=== PATIENT | male | born 1940 | race Caucasian/White ===

== ENCOUNTER 2022-02-03 09:53 | Outpatient (CLI) | payer MEDICARE, SELFPAY ==
[2022-02-03 10:22] LABS: Basophils Absolute Auto 0.1 K/mm3 (0.0-0.1); Basophils Percent Auto 0.6 % (0.2-1.2); Eosinophils Absolute Auto 0.3 K/mm3 (0-0.3); Eosinophils Percent Auto 2.6 % (0-4.4); Hematocrit 40.7 % (42.0-52.0); Hemoglobin 13.4 g/dL (14.0-18.0); Immature Granulocyte Absolute 0.03 K/mm3 (0.00-0.031); Immature Granulocyte Percent A 0.3 % (0-0.5); Lymphocytes Absolute Auto 1.42 K/mm3 (0.9-3.2); Lymphocytes Percent Auto 14.3 % (18.3-44.2); Mean Corpuscular HGB Conc 32.9 g/dl (32-36); Mean Corpuscular Hemoglobin 29.5 pg (26-34); Mean Corpuscular Volume 89.5 fl (80-100); Mean Platelet Volume 9.7 fl (7.4-10.4); Monocytes Absolute Auto 0.7 K/mm3 (0.1-0.6); Monocytes Percent Auto 7.3 % (2.6-8.5); Neutrophils Absolute Auto 7.5 K/mm3 (1.3-6.7); Neutrophils Percent Auto 74.9 % (45.5-73.1); Platelet Count Result 259 k/mm3 (150-375); Red Blood Count 4.55 M/mm3 (4.6-6.20); Red Cell Distribution Width 13.2 % (11.5-14.5)
[2022-02-03 10:32] LABS: INR 1.1; Prothrombin Time 13.6 Seconds (11.1-14.7)
[2022-02-03 10:33] LABS: Partial Thromboplastin Time 30.3 SECONDS (22.3-36.8)
[2022-02-03 10:38] LABS: Anion Gap 12 mmol/L (8-16); Blood Urea Nitrogen 20 mg/dL (9-20); Calcium 9.4 mg/dL (8.4-10.2); Carbon Dioxide 30 mmol/L (22-30); Chloride 99 mmol/L (98-107); Estimated Glomerular Filt Rate 49; Glucose 129 mg/dL (65-110); Potassium 4.8 mmol/L (3.4-5.0); Sodium 141 mmol/L (137-145)
== END 2022-02-03 09:54 | disposition home or self-care (01) ==
LOC: ANHSURGERY 10:00
PROVIDERS: Anesthesiology; Visit Provider Surgery
DX: Z01.818 Encounter for other preprocedural examination (principal); E11.9 Type 2 diabetes mellitus without complications; C25.9 Malignant neoplasm of pancreas, unspecified
CPT/HCPCS: 36415; 80048; 85025; 85610; 85730

== ENCOUNTER 2022-02-08 01:23 | Day surgery (SDC) | payer MEDICARE, SELFPAY ==
[2022-02-02 15:30] VITALS: BMI 29.5
--- NOTE | 2022-02-02 15:41 | PC.NURSE ---
PRE-OP INSTRUCTIONS, PLEASE READ CAREFULLY Report to the Outpatient Waiting Room, entrance under the green pavilion located off [facility], at time _1200_ on date _02/08/22_. Planned Procedure Time: _2 PM_. Time changes happen often and if your time is changed the preop area will call you the afternoon before. - You and your visitor will be asked to self-screen and do not enter if you have any COVID symptoms. - Only one visitor is requested with a max of two and NO children visitors are allowed at this time. - The patient visitor may be requested to leave or wait in car when not with patient due to distancing restrictions. - A mask is optional within the hospital. Patients may have clear liquids (water, carbonated beverages, clear teas, apple juice) until 3 hours prior to surgery (1100 AM) with a maximum of 20 ounces. - No food from midnight until time of surgery Take the following medications with a SIP of water the morning of surgery: _NONE_ Medications to discontinue per ANESTHESIA - _MULTIVITAMIN 3 DAYS PRIOR TO SURGERY, Date to take last dose 02/04/22_ Please no make-up, nail amharic, hairspray, perfume, deodorant, or body powder the day of surgery. No jewelry (including any body piercings) or valuables the day of surgery, leave them at home. Please take a shower or bath the night before, or the morning of, surgery with an antibacterial soap. Wear comfortable, loose fitting clothing. Children are encouraged to wear pajamas. - Jewelry must be removed prior to entering the operating room. Rings and piercings that are not removed may be cut off. - The hospital will not accept responsibility for valuables. - Please leave all valuables, including medications, at home the day of surgery. If you are going home after surgery, a licensed new car driver must drive you home. - NO public transportation without another adult if you receive anesthesia. - We recommend that an adult stay with you for 24 hours following discharge. - We also recommend that you do not drive, make important decision, drink alcoholic beverages, or take any drugs that were not prescribed by your health care provider for at least 24 hours after your discharge time. Follow any additional instructions given to you from your surgeon. If you or anyone in your household have experienced Covid symptoms in the past week, please notify your surgeon or the nurse liaison at the phone number below for possible testing. Telephone instructions given to _[facility] [place]_and asked if any additional questions and then verbalized understanding. Patient advised to call surgeon office or pre surgery nurse liaison [phone] if any additional questions.
--- NOTE | 2022-02-07 09:38 | PM.SD2 ---
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 He also had a bile duct stricture and has had bile duct stenting. He plans to have chemotherapy and is taken to surgery now for placement of a Port-A-Cath for chemotherapy access. FORMERLY [facility] Past Medical History Medical History (Updated 02/08/22 @ 14:39 by Ovi Andre MD) AAA (abdominal aortic aneurysm) BPH (benign prostatic hyperplasia) CKD (chronic kidney disease) stage 3, GFR 30-59 ml/min Diabetes HTN (hypertension) Hyperlipidemia Obesity Osteoarthritis Pancreatic cancer Social History Social History Smoking packs per day: 1 Smoking cigarettes per day: 20.0 Years smoked: 35 Smoking pack-years: 35.00 Smoking status: Former smoker Tobacco type: cigarettes Second hand tobacco smoke exposure: No Additional smoking assessment comments: QUIT 2007 Alcohol intake: never Substance use: never Living arrangements: with family Spiritual care concerns: No Same Day Admit/Disch: Med Pre-admit Medications Home Medications Medication Instructions Recorded Confirmed Type amlodipine 5 mg tablet 5 mg HS 02/02/22 02/08/22 History aspirin 81 mg tablet,delayed 81 mg PO DAILY 02/02/22 02/08/22 History release atorvastatin 20 mg tablet 20 mg QAM 02/02/22 02/08/22 History losartan 50 mg tablet 50 mg HS 02/02/22 02/08/22 History metformin 500 mg tablet 500 mg HS 02/02/22 02/08/22 History multivitamin 1 tablet PO DAILY 02/02/22 02/08/22 History ondansetron HCl 4 mg tablet 4 mg PO Q6H PRN Nausea 02/02/22 02/08/22 History hydrocodone 5 mg-acetaminophen 325 1 - 2 tablet PO Q6H PRN pain #10 02/08/22 Rx mg tablet tabs ibuprofen 600 mg tablet 600 mg PO Q6H PRN pain #14 tabs 02/08/22 Rx Exam Const: General: comfortable, no acute distress, alert and awake HENMT: Head: normocephalic and atraumatic Mouth: Yes Normal oral and palatal mucosa present Eyes: Conjunctivae: conjunctivae normal Pupils: Equal, round and reactive pupils present EOM: EOMs intact bilaterally Neck: Neck: normal visual inspection, no lymphadenopathy and nontender Chest: Chest palpation & inspection: normal inspection of the chest, no tenderness and No rash Resp: Effort & Inspection: normal respiratory effort Auscultation: clear to auscultation bilaterally Cardio: Rate: regular rate Rhythm: regular rhythm Heart sounds: no gallops, no murmurs and no rubs GI: Inspection: non-distended GI Palp: Yes Soft to palpation, No Tenderness to palpation present (GI), No Hepatomegaly present and No Splenomegaly present Skin: Lesions: no lesions Rashes: no rashes Neuro: General: no focal motor deficits and CN's II-XI intact bilaterally Cranial nerves: Yes Equal, round and reactive pupils present, Yes Bilaterally intact EOM present, Yes facial symmetry and Yes Midline tongue present Speech: normal speech Motor exam (neuro): 5/5 motor strength present throughout and Motor abnormalities not present Extrem: General: no clubbing, cyanosis or edema and edema Psych: Affect: normal affect Thought process: Normal thought process present Insight: Good insight present (Psych) DS: Summary Time Spent with Patient Time attestation: Total time spent providing and/or coordinating discharge services: DS: Admitting Diagnosis Discharge Date 02/08/2022 Admitting Diagnosis metastatic pancreatic cancer inadequate venous access for chemotherapy-plan to place Port-A-Cath under fluoroscopy as an outpatient. The procedure the risks benefits have been discussed. All questions were answered. He understands and agrees to go ahead. Discharge Plan Discharge Patient Disposition: Home, Self-Care Discharge Instructions: Medications: Patient
--- NOTE | 2022-02-07 14:44 | P.PNAN_ITS ---
Anes - Initial Pre Proc Eval Procedure: Operation Date: 02/08/22 14:00 Proposed Procedures p Insertion Joy Cath - Ovi Andre MD Date/Time: 02/07/22 14:44 Surgeon: Ovi Andre MD Pre Op Diagnosis: malig neoplasm head of pancreas Patient Data Age: 81 Gender: M Height: 1.8 m Weight: 95.9 kg Allergies Allergy/AdvReac Type Severity Reaction Status Date / Time No Known Allergies Allergy Unverified 02/08/22 12:21 Home Medications Medication Instructions Recorded Confirmed Type amlodipine 5 mg tablet 5 mg HS 02/02/22 02/08/22 History aspirin 81 mg tablet,delayed 81 mg PO DAILY 02/02/22 02/08/22 History release atorvastatin 20 mg tablet 20 mg QAM 02/02/22 02/08/22 History losartan 50 mg tablet 50 mg HS 02/02/22 02/08/22 History metformin 500 mg tablet 500 mg HS 02/02/22 02/08/22 History multivitamin 1 tablet PO DAILY 02/02/22 02/08/22 History ondansetron HCl 4 mg tablet 4 mg PO Q6H PRN Nausea 02/02/22 02/08/22 History Patient hx anesthesia problems: none Family hx anesthesia problems: none Results Review: All pre-operative results and documents have been reviewed as part of the pre- operative evaluation. FORMERLY [facility], [facility] Past Medical History Medical History (Updated 02/07/22 @ 14:46 by King Richardson MD) AAA (abdominal aortic aneurysm) BPH (benign prostatic hyperplasia) CKD (chronic kidney disease) stage 3, GFR 30-59 ml/min Diabetes HTN (hypertension) Hyperlipidemia Obesity Osteoarthritis Pancreatic cancer Social History Social History Smoking packs per day: 1 Smoking cigarettes per day: 20.0 Years smoked: 35 Smoking pack-years: 35.00 Smoking status: Former smoker Tobacco type: cigarettes Second hand tobacco smoke exposure: No Additional smoking assessment comments: QUIT 2007 Alcohol intake: never Substance use: never Living arrangements: with family Spiritual care concerns: No Anes - Eval Final PreProcedure Day of Procedure 02/07/22 14:44 Patient weight: overweight Heart: regular rate and rhythm Lungs: clear to auscultation and normal air movement Airway: Mallampati scale class II Neurological: alert and oriented Last oral intake: >/= 8 hours ASA classification: IV Emergent: no Anesthetic plan: proceed Anesthesia type and monitoring: general GIVS Results Review: All pre-operative results and documents have been reviewed as part of the pre- operative evaluation. Informed Consent: The patient's anesthetic plan and its attendant risks and benefits were discussed with the patient/family/POA. Questions were solicited and answers provided to the satisfaction of the patient/family/POA.
--- NOTE | ~2022-02-08 | XR_ITS ---
EXAMINATION: XR chest port-a-cath/central DATE: 02/08/2022 14:33 INDICATION: Port placement. TECHNIQUE: A single frontal view of the chest was obtained on 2 radiographs. COMPARISON: None. FINDINGS: There is no pneumonia, pleural effusion, or pneumothorax. The heart size is normal. There i s a left subclavian port with tip at superior cavoatrial junction. There is displacement of the wendi ter between the clavicle and first rib. IMPRESSION: 1. Port tip at superior cavoatrial junction. Reviewed, dictated and finalized at location A. ING MILL PLUGGER
--- NOTE | ~2022-02-08 | XR_ITS ---
EXAMINATION: XR fl guide central line place DATE: 02/08/2022 14:21 INDICATION: Port catheter insertion TECHNIQUE: 2 fluoroscopic images of the chest were obtained during procedure performed by Dr. Andre. R adiologist was not present for the imaging or procedure. The amount of fluoroscopy time used during t his procedure was 1.0 minutes. COMPARISON: None. FINDINGS/IMPRESSION: Left subclavian central venous port catheter with distal tip at the caudal superior vena cava. Reviewed, dictated and finalized at location A. ET WELDER HELPER
[2022-02-08 12:16] VITALS: BP 124/68; PULSE 65; RESP 20; TEMP 37.1; O2SAT 98
[2022-02-08] MEDS: LACTATED RINGERS 1,000 ML 30 ML IV CONT (12:35)
[2022-02-08] MEDS: KETOROLAC 15 MG/ML VIAL (*BKC) IV PUSH (12:40)
[2022-02-08 12:52] LABS: Glucose Point of Care 101 mg/dl (65-105)
--- NOTE | 2022-02-08 13:30 | WPDHPUPDATE1 ---
History and Physical Update Update Date/Time: 02/08/22 13:30 History and Physical has been reviewed, including an updated exam of the patient. There are NO changes in the patient's condition. Risks, benefits, and alternatives have been discussed and questions answered. Patient agrees to proceed with procedure.
[2022-02-08] MEDS: ceFAZolin 2 GM/D5W 50 ML 2 GM/50 ML BAG IVPB (13:37)
[2022-02-08] MEDS: BUPIVACAINE/EPINEPHRINE 0.25% 10 ML VIAL 20 ML INFILTRATE (14:05)
[2022-02-08] MEDS: HEPARIN SODIUM 1,000 UNITS/ML VIAL 1000 UNITS IV PUSH (14:06)
[2022-02-08 14:21] VITALS: BP 84/52; PULSE 75; RESP 18; O2SAT 95
--- NOTE | 2022-02-08 14:31 | P.OP_ITS ---
Procedure Note - Detailed Date of Procedure 02/08/22 Pre-op Diagnosis malig neoplasm head of pancreas, inadequate venous access for chemotherapy Post-op Diagnosis Same Procedure Performed Placement left subclavian vortex Port-A-Cath under fluoroscopy Surgeon Ovi Andre MD Social Service Technician Mary Newman [employer]CHANT B[employer]ER Anesthesia MAC and Local (0.25% Marcaine with epinephrine) Indications Patient has been found to have pancreatic cancer with liver metastases. He is to have chemotherapy and is taken to surgery now for placement of a Port-A-Cath for this purpose. Findings Port-A-Cath tip in the distal SVC right atrial junction by fluoroscopy Description of Procedure Patient was taken to surgery and placed in a supine position. The left neck and left subclavian areas were prepped and draped. The proposed left subclavian incision was drawn on the skin. Local was infiltrated into the skin and the deeper subcutaneous tissues. Incision was made dissection was carried down through the subcutaneous. We continued down through the pectoralis major fascia. A subfascial pocket was then created below the incision. Additional local was infiltrated into the pocket as well as the skin and subcutaneous. The left subclavian vein was then cannulated and a guidewire was passed into the superior vena cava. The position of the guidewires documented by C-arm fluoroscopy. We then used fluoroscopy to measure the length of the Port-A-Cath it would be needed. Port-A-Cath was cut to the appropriate length. The introducer and sleeve were then passed over the guidewire into the superior vena cava under fluoroscopic guidance. The introducer and guidewire were removed. The Port-A-Cath was passed through the sleeve and into the superior vena cava. Its position looked good. We then removed the sleeve. Port-A-Cath was placed in the pocket. It aspirated blood and flushed easily with heparin. I then sutured the Port-A-Cath to the pectoralis major muscle with interrupted 3-0 silk suture. A recheck the Port-A-Cath again. It aspirated blood and flushed easily with heparin. I then closed the wound with running 2-0 Vicryl suture. The skin was closed with subcuticular 4-0 Monocryl skin suture. Wound was dressed with Exofin surgical adhesive. The patient was awakened and taken to outpatient surgery in good condition. Sponge and needle counts were correct x2. Estimated Blood Loss -5 Drains No Packing No Pathology None sent Complications No immediate complications Condition Stable Disposition Same day [facility] Billing Surgery - Charge Forward: Surgery Billing (Placement Port-A-Cath under fluoroscopy)
[2022-02-08 14:42] LABS: Glucose Point of Care 107 mg/dl (65-105)
[2022-02-08 14:50] VITALS: BP 124/63; PULSE 68
[2022-02-08 15:15] VITALS: BP 130/63; PULSE 66
== END 2022-02-08 15:23 | disposition home or self-care (01) ==
PROVIDERS: Visit Provider Surgery
PROC: (CPT 36561; principal; 2022-02-08 14:00)
DX: C25.0 Malignant neoplasm of head of pancreas (principal); C78.7 Secondary malignant neoplasm of liver and intrahepatic bile duct; I12.9 Hypertensive chronic kidney disease with stage 1 through stage 4 chronic kidney disease, or unspecified chronic kidney disease; E11.22 Type 2 diabetes mellitus with diabetic chronic kidney disease; N18.30 Chronic kidney disease, stage 3 unspecified; E78.5 Hyperlipidemia, unspecified; N40.0 Benign prostatic hyperplasia without lower urinary tract symptoms; I71.40 Abdominal aortic aneurysm, without rupture, unspecified; E66.9 Obesity, unspecified; Z68.29 Body mass index [BMI] 29.0-29.9, adult; Z87.891 Personal history of nicotine dependence; Z79.82 Long term (current) use of aspirin; Z79.84 Long term (current) use of oral hypoglycemic drugs
CPT/HCPCS: 36561; 36415; 77001; 80048; 82948; 85025; 85610; 85730; C1788; J0690; J1644; J1885; J2704; J3010; J7030; J7120

== ENCOUNTER 2022-04-19 07:58 | Outpatient (RCR) | payer MEDICARE, SELFPAY ==
[2022-04-19] VITALS (10 sets, daily range): BP systolic 115–136; BP diastolic 57–71; PULSE 61–69; RESP 16–18; TEMP 36.4–36.8; O2SAT 97–99
[2022-04-19] MEDS: SODIUM CHLORIDE 0.9% IV 250 ML 30 ML IV CONT (08:20)
[2022-04-19] MEDS: ACETAMINOPHEN 325 MG TABLET 650 MG PO (08:42)
[2022-04-19] MEDS: diphenhydrAMINE HCl CAP 25 MG CAPSULE PO (08:42)
--- NOTE | 2022-04-19 08:45 | PC.NURSE ---
Blood administration started. Downtime form used for documentation. Vitals charted in system. Meds given, double verified and then back charted after downtime.
[2022-04-19] MEDS: FUROSEMIDE INJ 40 MG/4 ML VIAL 20 MG IV PUSH (11:21)
--- NOTE | 2022-04-19 14:54 | PC.NURSE ---
left chest port a cath heparin flush locked per protocol with 500 units heparin per 5 ml.
== END 2022-07-18 23:59 | disposition home or self-care (01) ==
LOC: ANHCPCTRAN 07:58
PROVIDERS: Visit Provider Internal Medicine Hematology & Oncology
DX: C25.9 Malignant neoplasm of pancreas, unspecified (principal); C78.7 Secondary malignant neoplasm of liver and intrahepatic bile duct
CPT/HCPCS: 36415; 36430; 86850; 86900; 86901; 86923; A9270; J1940; J7050; P9016

== ENCOUNTER 2022-04-26 14:41 | Emergency (ER) | payer MEDICARE, SELFPAY ==
[2022-04-26] VITALS (10 sets, daily range): BP systolic 105–137; BP diastolic 53–81; PULSE 75–88; RESP 14–21; TEMP 36.3–36.8; O2SAT 95–100
--- NOTE | ~2022-04-26 | XR_ITS ---
EXAMINATION: XR chest 1V DATE: 04/26/2022 17:58 INDICATION: Chemotherapy patient presented with fever TECHNIQUE: frontal view of the chest was obtained. COMPARISON: Chest radiograph dated 02/08/2022 FINDINGS: The lungs are clear with no focal airspace opacities, pulmonary edema, pleural effusion or pneumothor ax. The cardiomediastinal silhouette is normal. Left subclavian central venous port catheter with dis sharon tip at the caudal superior vena cava. Distal left clavicle resection. IMPRESSION: 1. No acute cardiopulmonary disease. Reviewed, dictated and finalized at location A. CODER
--- NOTE | ~2022-04-26 | CT_ITS ---
EXAMINATION: CT abdomen pelvis wo con DATE: 04/26/2022 17:52 INDICATION: Chemotherapy patient presented with fever and diarrhea TECHNIQUE: Computed tomography (CT) of the abdomen and pelvis was performed without intravenous contr ast. Automated exposure control and iterative reconstruction technique were employed. The dose-length product was 945.38 mGy-cm. COMPARISON: None FINDINGS: Mild discoid atelectasis in bilateral lower lobes. Heart size is normal. Small pericardial effusion. Biliary stent in expected position with pneumobilia in the common bile duct and nondependent intrahep atic biliary tree. There are multiple hypodense lesions throughout the liver, several with low-attenu ation relatively well-defined margins likely represent hepatic cysts. There multiple additional lesio ns which are more ill-defined and with slightly higher attenuation, the largest in the right hepatic lobe measuring 3.3 x 1.9 cm which are more concerning for hepatic abscesses or metastatic disease. Simon btle haziness to the fat situated between the liver and the otherwise normal decompressed gallbladder . Spleen and bilateral adrenal glands are normal. 2.8 cm ill-defined hypodense mass at the head of th e pancreas suspicious for pancreatic cancer. Bilateral low-attenuation renal cysts, the largest on th e right measuring 4.6 cm. Mild diffuse wall thickening in the distal colon suggestive of colitis. The re are also multiple diverticula along the descending and sigmoid colon without adjacent inflammatory stranding to suggest diverticulitis. The appendix is not visualized. No pericecal inflammatory valle e to suggest acute appendicitis. No bowel obstruction. Indeterminate cone-shaped soft tissue density extending deep to the umbilicus measuring 2 center diameter at the umbilicus and extending 2.5 cm mike p to the umbilicus. Bladder is normal. Prostatomegaly. No free intraperitoneal gas or fluid. There ar e few mildly prominent periportal, portacaval and aortocaval lymph nodes near the head of the pancrea s which could be either metastatic or reactive. No other pathologically enlarged lymphadenopathy. Mod erate to severe lumbar and lower thoracic spondylosis. There are few subcentimeter lytic lesions at L 5, the sacrum and right posterior iliac spine. IMPRESSION: 1. 2.8 cm hypodense mass at the head of the pancreas suspicious for primary pancreatic cancer. 2. Multiple hypodense lesions scattered throughout the liver, several with ill-defined margins which are suspicious for either metastatic disease or hepatic abscesses. 3. Pneumobilia with biliary stent in expected position of the common bile duct. 4. Mild periportal, portacaval and upper abdominal aorta caval lymphadenopathy which could be either reactive or metastatic. 5. Mild diffuse wall thickening the distal colon suspicious for colitis which could be either infecti ous, inflammatory or ischemic in etiology. 6. Superimposed diverticulosis. 7. Indeterminate 2 x 2.5 cm, shaped soft tissue density deep to the umbilicus which could be either m etastatic or scarring related to prior surgery. Correlate with surgical history. 8. A few indeterminate subcentimeter lytic bone lesions which could represent hemangiomas or metastat ic disease. Recommend correlation with any prior outside imaging. Reviewed, dictated and finalized at location A. ARCHITECT IMPRESSION: 1. 2.8 cm hypodense mass at the head of the pancreas suspicious for primary cruz creatic cancer. 2. Multiple hypodense lesions scattered throughout the liver, several with ill- defined margins which are suspicious for either metastatic disease or hepatic a bscesses. 3. Pneumobilia with biliary stent in expected position of the common bile duct. 4. Mild periportal, portacaval and upper abdominal aorta caval ly
[2022-04-26 16:15] LABS: Hematocrit 31.9 % (42.0-52.0); Mean Corpuscular HGB Conc 31.3 g/dl (32-36); Mean Corpuscular Hemoglobin 29.2 pg (26-34); Mean Platelet Volume 9.9 fl (7.4-10.4); Platelet Count Result 164 k/mm3 (150-375); Red Blood Count 3.43 M/mm3 (4.6-6.20); Red Cell Distribution Width 16.7 % (11.5-14.5); White Blood Count 12.2 K/mm3 (4.5-10.0)
[2022-04-26 16:19] LABS: Appearance Urine Clear (Clear); Bilirubin Urine 1+ (Negative); Blood Urine Trace-lysed (Negative); Color Urine Yellow (Yellow); Glucose Urine UA Negative (Negative); Ketones Urine Negative (Negative); Leukocyte Esterase Ur Negative LEU/UL (Negative); Nitrate Urine Negative (Negative); Protein Urine 2+ mg/dL (Negative); Specific Grav Ur 1.025 (1.001-1.035); Urobilinogen Urine 0.2 mg/dL (<2.0); pH Urine 5.5 (5.0-9.0)
[2022-04-26 16:25] LABS: Mucus Urine Rare /lpf; Squamous Epithelial Cell Urine Rare /hpf (Few); WBC Urine 0-3 /hpf
[2022-04-26 16:31] LABS: Add Urine Microscopic? YES; Alanine Aminotransferase 281 U/L (6-50); Albumin Level 3.5 g/dL (3.5-5.1); Alkaline Phosphatase 234 U/L (38-126); Anion Gap 7 mmol/L (8-16); Aspartate Amino Transferase 143 U/L (17-59); Bilirubin,Total 0.8 mg/dL (0.2-1.3); Blood Urea Nitrogen 33 mg/dL (9-20); Calcium 8.3 mg/dL (8.4-10.2); Carbon Dioxide 23 mmol/L (22-30); Chloride 104 mmol/L (98-107); Estimated CRCL calculation 30 ml/min; Estimated Glomerular Filt Rate 34; Glucose 161 mg/dL (65-110); Lipase 490 U/L (23-300); Potassium 4.4 mmol/L (3.4-5.0); Sodium 134 mmol/L (137-145)
[2022-04-26 16:55] LABS: Band Neutrophils Percent 4 % (0-6); Lymphocytes Absolute Manual 0.85 K/mm3 (1.1-4.5); Monocytes Absolute Manual 0.61 K/mm3 (0.1-0.90); Monocytes Percent Manual 5 % (3-9); Neutrophils Absolute Manual 10.73 K/mm3 (1.3-6.7); Neutrophils Percent Manual 84 % (46-73); Platelet Estimate Adequate (Adequate); Schistocytes None Seen (NORMAL); Total Cells Counted 100
[2022-04-26 16:56] LABS: Anisocytosis 2+ (NORMAL); Hypochromasia 1+ (NORMAL)
--- NOTE | 2022-04-26 17:41 | ED.FEVER ---
HPI - Fever General Chief Complaint: Fever Stated Complaint: fever Time Seen by Provider: 04/26/22 16:18 History of Present Illness HPI Narrative: Patient is an 81-year-old male with a history of pancreatic cancer presenting with fever. Patient states that he had a stent placed in his pancreas 2 days ago. States that yesterday he was started on a chemo infusion yesterday which continues to run. States that he has had decreased appetite and general malaise. Reports several episodes of diarrhea. Today his checked his temperature orally and it was 102 Fahrenheit. They called his oncologist Dr. Stacy who told him to come in for evaluation. Patient took Tylenol prior to arrival. Currently, he states that he feels okay. No headache, cough, chest pain, shortness of breath, vomiting, dysuria, leg swelling. Related Data Home Medications Medication Instructions Recorded Confirmed amlodipine 5 mg tablet 5 mg HS 02/02/22 04/25/22 aspirin 81 mg tablet,delayed 81 mg PO DAILY 02/02/22 04/25/22 release atorvastatin 20 mg tablet 20 mg QAM 02/02/22 04/25/22 losartan 50 mg tablet 50 mg HS 02/02/22 04/25/22 metformin 500 mg tablet 500 mg HS 02/02/22 04/25/22 multivitamin 1 tablet PO DAILY 02/02/22 04/25/22 ondansetron HCl 4 mg tablet 4 mg PO Q6H PRN Nausea 02/02/22 04/25/22 ferrous sulfate 325 mg (65 mg 325 mg PO BID 04/12/22 04/25/22 iron) tablet (iron) potassium chloride 20 mEq 20 meq PO DAILY 04/18/22 04/25/22 tablet,extended release Allergies Allergy/AdvReac Type Severity Reaction Status Date / Time No Known Allergies Allergy Verified 04/25/22 09:19 Review of Systems Review of Systems: All systems reviewed & are unremarkable except as noted in HPI and below PMFSH Past Medical History Medical History AAA (abdominal aortic aneurysm) BPH (benign prostatic hyperplasia) CKD (chronic kidney disease) stage 3, GFR 30-59 ml/min Diabetes HTN (hypertension) Hyperlipidemia Obesity Osteoarthritis Pancreatic cancer Social History Social History Smoking packs per day: 1 Smoking cigarettes per day: 20.0 Years smoked: 35 Smoking pack-years: 35.00 Smoking status: Former smoker Tobacco type: cigarettes Second hand tobacco smoke exposure: No Smoking end date: 03/19/07 Additional smoking assessment comments: QUIT 2007 Alcohol intake: never Substance use: never Living arrangements: with family Spiritual care concerns: No Exam Narrative: GENERAL: Well-appearing, well-nourished, and in no acute distress. HEAD: Normocephalic, atraumatic. EYES: PERRLA and EOMI. ENT: Nares clear, no rhinorrhea or epistaxis. Mucous membranes moist. NECK: Supple. CHEST: Clear to auscultation. No respiratory distress. HEART: Regular rate and rhythm. Port left anterior chest ABDOMEN: Soft, mild RLQ tenderness, no guarding or rebound EXTREMITIES: Normal range of motion. No edema. SKIN: Warm, dry, no rash. NEURO: No focal deficits. Alert and oriented x3. PSYCH: Normal mood and affect. Course Vital Signs Vital signs: Vital Signs Temperature 97.4 F L 04/26/22 15:28 Pulse Rate 88 04/26/22 15:28 Respiratory Rate 14 04/26/22 15:28 Blood Pressure 109/58 L 04/26/22 15:28 Pulse Oximetry 97 04/26/22 15:28 Oxygen Delivery Room Air 04/26/22 15:28 Temperature 98.1 F 04/26/22 19:00 Pulse Rate 79 04/26/22 19:26 Respiratory Rate 19 04/26/22 19:26 Blood Pressure 137/71 04/26/22 19:26 Pulse Oximetry 100 04/26/22 19:26 Oxygen Delivery Room Air 04/26/22 15:28 MDM - Fever MDM Narrative Medical decision making narrative: Patient is an 81-year-old male presenting with a fever in the setting of chemo and recent abdominal procedure. Vitals here are within normal limits. Afebrile though he did take Tylenol prior to arrival. Exam is remarkable for the above. Blood work
[2022-04-26] MEDS: SODIUM CHLORIDE 0.9% IV 1,000 ML 999 ML IV CONT (18:12)
[2022-04-26 18:45] LABS: Lactic Acid Reflex 1.3 mmol/L (0.7-2.0)
[2022-04-26] MEDS: metroNIDAZOLE 250 MG TABLET 500 MG PO (19:15)
== END 2022-04-26 19:28 | disposition home or self-care (01) ==
PROVIDERS: Emergency Medicine; Emergency Provider Emergency Medicine
DX: R50.9 Fever, unspecified (principal); K52.9 Noninfective gastroenteritis and colitis, unspecified; C25.9 Malignant neoplasm of pancreas, unspecified; I12.9 Hypertensive chronic kidney disease with stage 1 through stage 4 chronic kidney disease, or unspecified chronic kidney disease; E11.22 Type 2 diabetes mellitus with diabetic chronic kidney disease; N18.30 Chronic kidney disease, stage 3 unspecified; Z79.84 Long term (current) use of oral hypoglycemic drugs; M19.90 Unspecified osteoarthritis, unspecified site
CPT/HCPCS: 36415; 71045; 74176; 80053; 81001; 83605; 83690; 85025; 87040; 87077; 87186; 96360; 99284; A9270; J7030

== ENCOUNTER 2022-05-31 08:01 | Outpatient (CLI) | payer MEDICARE, SELFPAY ==
--- NOTE | ~2022-05-31 | CT_ITS ---
EXAMINATION: CT chest abdomen pelvis w con DATE: 05/31/2022 08:28 INDICATION: Malignant neoplasm of pancreas. TECHNIQUE: Computed tomography (CT) of the chest, abdomen, and pelvis was performed with 100 mL Omnip aque 350 intravenous contrast. Automated exposure control and iterative reconstruction technique were employed. The dose-length product was 1146.15 mGy-cm. COMPARISON: CT abdomen and pelvis 04/26/2022 FINDINGS: CHEST CT: There is mild scarring at the lung apices. There is mild emphysema. There is mild atelectasis bilater ally. No pleural effusion. There are nodules in the thyroid measuring up to 15 mm, likely needing no follow-up given the patient's comorbidities. There is a left subclavian port with tip at superior cav oatrial junction. The heart size is normal. No pericardial effusion. There are coronary artery calcif ications. There is ectasia of ascending aorta measuring 4.6 cm. There are bridging endplate osteophyt es at multiple levels in the spine, consistent with diffuse idiopathic skeletal hyperostosis (DISH). There is mild thoracic spondylosis. There is a benign bone island in T8 vertebral body. ABDOMEN/PELVIS CT: There are cysts in the liver measuring up to 2.0 cm. There are greater than 10 masses in the liver me asuring up to 3.2 cm. The gallbladder is normal in size. Pneumobilia is noted. There is a stent in th e common duct. There is a 3.1 cm mass in the uncinate process of the pancreas. Main pancreatic duct i s dilated to 7 mm. There is a small sliding hiatal hernia. The spleen and adrenal glands are normal. There is cortical thinning of the kidneys. There are cysts in the kidneys measuring up to 4.8 cm on t he right. The prostate is mildly enlarged. There are bilateral inguinal hernias containing fat. There is diverticulosis of the colon without evidence of diverticulitis. There are no dilated loops of bow el. The appendix is not visualized. There is a 2.7 x 3.2 cm mass at the umbilicus. There is calcified atherosclerosis of the aorta and many of the other arteries. There is no free intraperitoneal fluid. There is a mildly enlarged aortocaval lymph node. There is a normal-sized peripancreatic lymph node with central necrosis. There is severe lumbar spondylosis. IMPRESSION: 1. Pancreas mass, consistent with primary adenocarcinoma. 2. Liver masses, abdominal lymphadenopathy, and umbilical mass (Sister Noemi Benitez nodule), consisten t with metastatic disease. Reviewed, dictated and finalized at location A. IMPRESSION: 1. Pancreas mass, consistent with primary adenocarcinoma. 2. Liver masses, abdominal lymphadenopathy, and umbilical mass (Sister Noemi Gonzales eph nodule), consistent with metastatic disease.
== END 2022-05-31 08:02 | disposition home or self-care (01) ==
PROVIDERS: Visit Provider Internal Medicine Hematology & Oncology
DX: C25.9 Malignant neoplasm of pancreas, unspecified (principal); K86.89 Other specified diseases of pancreas
CPT/HCPCS: 71260; 74177; Q9967

== ENCOUNTER 2022-09-13 08:39 | Outpatient (CLI) | payer MEDICARE, SELFPAY ==
--- NOTE | ~2022-09-13 | CT_ITS ---
Clinical Indication: Pancreatic carcinoma CT Scan of the Chest, Abdomen, and Pelvis with Contrast: Technique: Contiguous sections were acquired throughout the chest, abdomen, and pelvis after intraven ous administration of 100 cc of Omnipaque 350. Dose reduction technique was used on this scan by phil francois automated exposure control and iterative reconstruction technique. The dose-length product (DL P) was 1388.89 mGy-cm. COMPARISON: 05/31/2022 Findings: There is no evidence of any significant mediastinal, hilar or axillary lymphadenopathy. The mediastin al soft tissues and vascular structures appear normal. There is no evidence of pleural or pericardial effusion. The lungs are clear. No pulmonary nodules or infiltrates are noted. Mild emphysema noted. There are numerous hypodense hepatic masses,, some cystic in attenuation, others noncystic. Noncystic lesions appear to be mildly decreased in size as compared to prior exam, compatible with partial res ponse to therapy. Pneumobilia is present. Common bile duct stent is present. There is an ill-defined mass at the pancreatic head/uncinate process measuring approximately 2.2 cm in diameter, compatible w ith pancreatic adenocarcinoma. This mass is mildly decreased in size as compared to prior exam. Stabl e dilatation of the more distal main pancreatic duct. The spleen, adrenals and kidneys are within normal limits. There are atherosclerotic calcifications o f the aorta. Mildly enlarged peripancreatic/don hepatis lymph nodes are again present.. No bowel obstruction or bowel wall thickening. There is no evidence to suggest acute appendicitis. Si gmoid diverticulosis noted. Urinary bladder is unremarkable. Prostate gland and seminal vesicles are unremarkable. No ascites. Impression: Partial response to therapy. Pancreatic adenocarcinoma and hepatic metastases are overall mildly decr eased in size from prior exam. Mild emphysema. Reviewed, dictated and finalized at location . Impression: Partial response to therapy. Pancreatic adenocarcinoma and hepatic metastases a re overall mildly decreased in size from prior exam. Mild emphysema.
== END 2022-09-13 08:40 | disposition home or self-care (01) ==
PROVIDERS: Visit Provider Internal Medicine Hematology & Oncology
DX: C25.9 Malignant neoplasm of pancreas, unspecified (principal); J43.9 Emphysema, unspecified
CPT/HCPCS: 71260; 74177; Q9967

== ENCOUNTER 2022-11-26 08:54 | Emergency (ER) | payer MEDICARE, SELFPAY ==
[2022-11-26] VITALS (18 sets, daily range): BP systolic 115–143; BP diastolic 65–73; PULSE 60–76; RESP 12–19; TEMP 36.7; O2SAT 98–100
--- NOTE | 2022-11-26 09:24 | ED.RECABL ---
HPI - Recheck/Abnormal Lab/Rx General Chief Complaint: Recheck/Abnormal Lab/Rx Stated Complaint: high BG Time Seen by Provider: 11/26/22 09:21 Source: patient and family Mode of arrival: ambulatory Limitations: no limitations History of Present Illness HPI narrative: 82 years old white male came from home by private car with his family complaining of increased blood glucose since September 2022. Patient had a recent diagnosis of pancreatic cancer January 2022, started on chemotherapy and prednisone recently. Prednisone cut in half last week. Patient denies any fever, chills, nausea, vomiting, abdominal pain, back pain, headache, chest pain or shortness of breath. Patient did not see his family physician for months. Related Data Home Medications Medication Instructions Recorded Confirmed amlodipine 5 mg tablet 5 mg HS 02/02/22 11/02/22 aspirin 81 mg tablet,delayed 81 mg PO DAILY 02/02/22 11/02/22 release atorvastatin 20 mg tablet 20 mg QAM 02/02/22 11/02/22 losartan 50 mg tablet 50 mg HS 02/02/22 11/02/22 metformin 500 mg tablet 500 mg HS 02/02/22 11/02/22 multivitamin 1 tablet PO DAILY 02/02/22 11/02/22 ondansetron HCl 4 mg tablet 4 mg PO Q6H PRN Nausea 02/02/22 11/02/22 ferrous sulfate 325 mg (65 mg 325 mg PO BID 04/12/22 11/02/22 iron) tablet (iron) potassium chloride 20 mEq 20 meq PO DAILY 04/18/22 11/02/22 tablet,extended release Allergies Allergy/AdvReac Type Severity Reaction Status Date / Time No Known Allergies Allergy Verified 11/26/22 09:20 Review of Systems Review of Systems: All systems reviewed & are unremarkable except as noted in HPI and below PMFSH Past Medical History Medical History AAA (abdominal aortic aneurysm) BPH (benign prostatic hyperplasia) CKD (chronic kidney disease) stage 3, GFR 30-59 ml/min Diabetes HTN (hypertension) Hyperlipidemia Obesity Osteoarthritis Pancreatic cancer Social History Social History Smoking packs per day: 1 Smoking cigarettes per day: 20.0 Years smoked: 35 Smoking pack-years: 35.00 Smoking status: Former smoker Tobacco type: cigarettes Second hand tobacco smoke exposure: No Smoking end date: 03/19/07 Additional smoking assessment comments: QUIT 2008 Alcohol intake: never Substance use: never Living arrangements: with family Spiritual care concerns: No Exam Narrative: General appearance: Well-developed, well-nourished Skin: Normal color Head: Normocephalic, nontraumatic Eyes: Clear conjunctiva ENT: Oropharynx normal, ears normal, nose normal Neck: Supple, nontender Chest and respiratory: Airway patent, no respiratory distress, no accessory muscle use Heart: Regular rate/rhythm Abdomen: Soft, nontender, no organomegaly, quiet bowel sounds Vascular: Normal peripheral pulses, normal capillary refill. Musculoskeletal: Normal range of motion, nontender back Neurologic: Alert and oriented ?3, STAIN SPRAYER is normal as tested, no gross motor deficit Course Reevaluation(s) Reevaluation #1: Patient still asymptomatic. Date: 11/26/22 Time: 11:53 Vital Signs Vital signs: Vital Signs Temperature 36.7 C 11/26/22 09:14 Pulse Rate 75 11/26/22 09:14 Respiratory Rate 16 11/26/22 09:14 Blood Pressure 126/71 11/26/22 09:14 Pulse Oximetry 100 11/26/22 09:14 Oxygen Delivery Room Air 11/26/22 09:14 Temperature 36.7 C 11/26/22 09:14 Pulse Rate 75 11/26/22 09:14 Respiratory Rate 16 11/26/22 09:14 Blood Pressure 126/71 11/26/22 09:14 Pulse Oximetry 100 11/26/22 09:14 Oxygen Delivery Room Air 11/26/22 09:14
[2022-11-26 09:37] LABS: Basophils Percent Auto 0.3 % (0.2-1.2); Eosinophils Absolute Auto 0.2 K/mm3 (0-0.3); Eosinophils Percent Auto 2.6 % (0-4.4); Hematocrit 31.7 % (42.0-52.0); Hemoglobin 10.9 g/dL (14.0-18.0); Immature Granulocyte Absolute 0.02 K/mm3 (0.00-0.031); Immature Granulocyte Percent A 0.3 % (0-0.5); Lymphocytes Absolute Auto 0.95 K/mm3 (0.9-3.2); Lymphocytes Percent Auto 16.2 % (18.3-44.2); Mean Corpuscular HGB Conc 34.4 g/dl (32-36); Mean Corpuscular Hemoglobin 31.4 pg (26-34); Mean Corpuscular Volume 91.4 fl (80-100); Mean Platelet Volume 9.4 fl (7.4-10.4); Monocytes Absolute Auto 0.2 K/mm3 (0.1-0.6); Monocytes Percent Auto 3.1 % (2.6-8.5); Neutrophils Absolute Auto 4.6 K/mm3 (1.3-6.7); Neutrophils Percent Auto 77.5 % (45.5-73.1); Platelet Count Result 130 k/mm3 (150-375); Red Blood Count 3.47 M/mm3 (4.6-6.20); Red Cell Distribution Width 13.1 % (11.5-14.5); White Blood Count 5.9 K/mm3 (4.5-10.0)
[2022-11-26 09:55] LABS: Alanine Aminotransferase 26 U/L (6-50); Alkaline Phosphatase 195 U/L (38-126); Anion Gap 10 mmol/L (8-16); Aspartate Amino Transferase 21 U/L (17-59); Bilirubin,Total 0.8 mg/dL (0.2-1.3); Blood Urea Nitrogen 28 mg/dL (9-20); Calcium 8.8 mg/dL (8.4-10.2); Carbon Dioxide 25 mmol/L (22-30); Chloride 98 mmol/L (98-107); Estimated CRCL calculation 46 ml/min; Estimated Glomerular Filt Rate 58; Glucose 332 mg/dL (65-110); Phosphorus 3.2 mg/dL (2.5-4.5); Potassium 4.4 mmol/L (3.4-5.0); Sodium 133 mmol/L (137-145)
[2022-11-26 09:58] LABS: Beta-Hydroxybutyrate/Acetoacetate 0.51 mmol/L (0.02-0.27)
[2022-11-26 10:07] LABS: Appearance Urine Cloudy (Clear); Bacteria Urine None Seen /hpf; Bilirubin Urine Negative (Negative); Blood Urine Negative (Negative); Color Urine Dark Yellow (Yellow); Glucose Urine UA 3+ mg/dL (Negative); Hyaline Casts Urine Present /lpf; Ketones Urine Trace mg/dL (Negative); Leukocyte Esterase Ur Negative LEU/UL (Negative); Nitrate Urine Negative (Negative); Protein Urine 1+ mg/dL (Negative); RBC Urine 0-2 /hpf (0-2); Specific Grav Ur 1.027 (1.001-1.035); Squamous Epithelial Cell Urine None seen /hpf (Few); WBC Urine 0-5 /hpf
[2022-11-26 10:08] LABS: Add Urine Microscopic? YES
[2022-11-26] MEDS: SODIUM CHLORIDE 0.9% IV 1,000 ML 999 ML IV CONT (10:45)
[2022-11-26 11:53] LABS: Fractional Inspired Oxygen 21 %; HCO3 VBG 21.4 mEq/l (24.0-30.0); PCO2 VBG 40.2 mmHg (42.0-48.0); pH VBG 7.345 (7.300-7.400)
[2022-11-26 11:54] LABS: Device ROOM AIR; PO2 VBG < 27.0 mmHg (35.0-45.0)
[2022-11-26 13:25] LABS: Glucose Point of Care 254 mg/dl (65-105)
[2022-11-26] MEDS: HEPARIN SODIUM LOCK FLUSH 500 UNITS/5 ML VIAL (13:30)
== END 2022-11-26 13:30 | disposition home or self-care (01) ==
PROVIDERS: Emergency Provider Emergency Medicine
DX: E11.65 Type 2 diabetes mellitus with hyperglycemia (principal); Z79.84 Long term (current) use of oral hypoglycemic drugs; C25.9 Malignant neoplasm of pancreas, unspecified; Z87.891 Personal history of nicotine dependence; I12.9 Hypertensive chronic kidney disease with stage 1 through stage 4 chronic kidney disease, or unspecified chronic kidney disease; N18.30 Chronic kidney disease, stage 3 unspecified; N40.0 Benign prostatic hyperplasia without lower urinary tract symptoms; M19.90 Unspecified osteoarthritis, unspecified site
CPT/HCPCS: 36415; 80053; 81001; 82010; 82803; 82948; 83735; 84100; 85025; 96360; 99283; J1642; J7030

== ENCOUNTER 2022-12-26 09:30 | Outpatient (CLI) | payer MEDICARE, SELFPAY ==
--- NOTE | ~2022-12-26 | CT_ITS ---
Clinical Indication: Pancreatic cancer CT Scan of the Chest, Abdomen, and Pelvis with Contrast: Technique: Contiguous sections were acquired throughout the chest, abdomen, and pelvis after intraven ous administration of 100 cc of Omnipaque 350. Dose reduction technique was used on this scan by uti lizing automated exposure control and iterative reconstruction technique. The dose-length product (DL P) was 842.80 mGy-cm. COMPARISON: 09/13/2022 Findings: There is no evidence of any significant mediastinal, hilar or axillary lymphadenopathy. The mediastin al soft tissues and vascular structures appear normal. There is no evidence of pleural or pericardial effusion. The lungs are clear. No pulmonary nodules or infiltrates are noted. Minimal emphysema noted. There is been interval progression of hepatic metastatic disease, with increase in size and number of lesions. Largest lesions in the posterior right hepatic lobe measuring approximately 5.[address] There are several probable hepatic cysts as well, which are similar to prior exam. Pneumobilia i s present. There is probable interval mild increase in ill-defined mass at the pancreatic head/uncinate process, measuring up to approximately 2.8 cm in maximum diameter. Common bile duct stent is in place. There is diffuse dilatation of the main pancreatic duct from the pancreatic neck distally. There is interva l increase in a posterior peripancreatic metastatic lymph node, which now measures 2.4 cm in diameter (axial image 140). Additional shotty peripancreatic lymph nodes are also mildly increased in size. The spleen, gallbladder, adrenals and kidneys are within normal limits. There are atherosclerotic nayan cifications of the aorta. No lymphadenopathy. No bowel obstruction or bowel wall thickening. There is no evidence to suggest acute appendicitis. Urinary bladder is unremarkable. Prostate gland and seminal vesicles are unremarkable. There are smal l bilateral fat-containing inguinal hernias. Impression: Interval progression of disease. Hepatic metastases are increased in size and number, as detailed abo ve. Pancreatic head/uncinate process mass is also mildly increased in size, as are metastatic peripan creatic lymph nodes. Minimal emphysema. Bilateral fat-containing inguinal hernias. Reviewed, dictated and finalized at location M. Impression: Interval progression of disease. Hepatic metastases are increased in size and n umber, as detailed above. Pancreatic head/uncinate process mass is also mildly increased in size, as are metastatic peripancreatic lymph nodes. Minimal emphysema. Bilateral fat-containing inguinal hernias.
[2022-12-26 10:25] LABS: Estimated Glomerular Filt Rate 42
== END 2022-12-26 09:31 | disposition home or self-care (01) ==
LOC: ANHIMG 09:30
PROVIDERS: Visit Provider Internal Medicine Hematology & Oncology
DX: C25.9 Malignant neoplasm of pancreas, unspecified (principal); K40.20 Bilateral inguinal hernia, without obstruction or gangrene, not specified as recurrent; J43.9 Emphysema, unspecified
CPT/HCPCS: 71260; 74177; Q9967

== ENCOUNTER 2023-03-09 07:34 | Outpatient (RCR) | payer MEDICARE, SELFPAY ==
[2023-03-09] VITALS (7 sets, daily range): BP systolic 125–145; BP diastolic 65–79; PULSE 64–72; RESP 16–20; TEMP 36.3–37.1; O2SAT 98–100
[2023-03-09 08:14] LABS: Hematocrit 25.1 % (42.0-52.0)
[2023-03-09] MEDS: diphenhydrAMINE HCl CAP 25 MG CAPSULE PO (08:50)
[2023-03-09] MEDS: ACETAMINOPHEN 325 MG TABLET 650 MG PO (08:51)
[2023-03-09] MEDS: SODIUM CHLORIDE 0.9% IV 250 ML 30 ML IV CONT (08:51)
--- NOTE | 2023-03-09 09:25 | PC.NURSE ---
Addendum entered by Cyn Moralez RN 03/09/23 09:27: Rate change was at 0914 Original Note: Unit #1 PRBC increased from 75 cc/hr to 125cc/hr. Pt nolan transfusion well without c/o or distress
== END 2023-06-07 23:59 | disposition home or self-care (01) ==
LOC: ANHCPCTRAN 07:34
PROVIDERS: Visit Provider Internal Medicine Hematology & Oncology
DX: C25.9 Malignant neoplasm of pancreas, unspecified (principal)
CPT/HCPCS: 36415; 36430; 85014; 85018; 86850; 86900; 86901; 86923; A9270; J1642; J7050; P9016

== ENCOUNTER 2023-05-15 08:57 | Outpatient (CLI) | payer MEDICARE, SELFPAY ==
--- NOTE | ~2023-05-15 | CT_ITS ---
EXAMINATION: CT chest abdomen pelvis w con DATE: 05/15/2023 09:39 INDICATION: Malignant neoplasm of the pancreas TECHNIQUE: Transaxial computed tomographic images of the chest, abdomen, and pelvis were obtained aft er the administration of 100 cc of Omnipaque 350 intravenous contrast. The dose-length product (DLP) was 748.00 mGy-cm. Automated exposure control and iterative reconstruction technique were employed. COMPARISON: 12/26/2022 FINDINGS: CHEST CT: There is mild emphysema. Scattered stable 2 to 3 mm nodules of the lungs likely reflect old granuloma tous disease. No pleural effusion or pneumothorax. There are small pleural effusions. No pneumothorax is identified. The heart size is normal. There is a small pericardial effusion. Calcified coronary a rtery atherosclerosis is noted. Left subclavian Port-A-Cath ends with its tip in the distal superior vena cava. Multinodular goiter is noted. There are bridging osteophytes at multiple levels in the spi ne, consistent with diffuse idiopathic skeletal hyperostosis (DISH). ABDOMEN/PELVIS CT: There are multiple ill-defined hepatic metastases throughout the liver which demonstrate interval inc rease in size. For reference, a 9.5 cm mass in liver segment VII previously measured 5.8 cm. There is an approximately 4.1 x 3.2 cm mass in the head/uncinate process of the pancreas which has increased in size, previously measuring 2.8 cm. The mass abuts and encases approximately 180 degrees of the pro ximal superior mesenteric artery and abuts the portal splenic confluence and left renal vein. There i s worsening distention of the pancreatic duct with development of a 2.8 cm cystic area in the tail of the pancreas, likely dilated side branch. A stone is present in the gallbladder. There is wall thick ening of the gall bladder. The adrenal glands are unremarkable. Cysts of the kidneys measure up to 4. 5 cm on the right. There is a stent in the distal common bile duct. No free intraperitoneal gas or ev idence of bowel obstruction. There is a small volume of pelvic ascites. There are bilateral inguinal hernias containing fat. IMPRESSION: 1. Interval progression of disease as evidenced by enlarging pancreatic mass and enlarging hepatic me tastases. 2. Gallbladder wall thickening and pericholecystic fluid which could reflect cholecystitis related to pancreatic mass. Reviewed, dictated and finalized at location L. [employer] IMPRESSION: 1. Interval progression of disease as evidenced by enlarging pancreatic mass an d enlarging hepatic metastases. 2. Gallbladder wall thickening and pericholecystic fluid which could reflect ch olecystitis related to pancreatic mass.
== END 2023-05-15 08:58 | disposition home or self-care (01) ==
PROVIDERS: Visit Provider Internal Medicine Hematology & Oncology
DX: K82.8 Other specified diseases of gallbladder (principal); C25.9 Malignant neoplasm of pancreas, unspecified
CPT/HCPCS: 71260; 74177; Q9967

== ENCOUNTER 2023-07-01 10:33 | Observation (INO) | payer MEDICARE, SELFPAY ==
[2023-07-01] VITALS (23 sets, daily range): BP systolic 150–165; BP diastolic 69–78; PULSE 57–78; RESP 12–20; TEMP 36.2–36.6; O2SAT 97–100; BMI 22.4
--- NOTE | ~2023-07-01 | XR_ITS ---
EXAMINATION: XR chest 2V DATE: 07/01/2023 11:00 INDICATION: Dizziness and fall TECHNIQUE: frontal and lateral views of the chest were obtained. COMPARISON: CT dated 05/15/2023 FINDINGS: Mild hyperexpansion lungs consistent with mild emphysema better appreciated on prior CT. No focal air space opacities, pulmonary edema, pleural effusion or pneumothorax. The cardiomediastinal silhouette is normal. Left subclavian central venous port catheter with distal tip at the caudal superior vena c zoraida. IMPRESSION: 1. Mild emphysema. No acute cardiopulmonary disease. Reviewed, dictated and finalized at location A.
--- NOTE | ~2023-07-01 | CT_ITS ---
EXAMINATION: CTA brain carotid DATE: 07/01/2023 17:39 INDICATION: Dizziness. TECHNIQUE: Computed tomographic angiography (CTA) of the head was performed with 100 mL Omnipaque-350 intravenous contrast. CTA of the neck was performed with intravenous contrast. Automated exposure co ntrol and iterative reconstruction technique were employed. The dose-length product was 1205.53 mGy-c m. Maximum intensity projection and volume rendered 3D-reconstructions were created by the barbara rendon on a separate workstation. COMPARISON: Head CT 07/01/2023 FINDINGS: HEAD CTA: There is no intracranial hemorrhage or acute infarction. There are scattered areas of low a ttenuation in the cerebral white matter, which is within normal limits for the patient's age. There i s a 2.2 cm enhancing extra-axial mass lateral to right cerebellum, consistent with a meningioma. The ventricles are normal in size. The orbits are normal. There is mild mucosal thickening in the paranas al sinuses. The mastoid air cells are normal. Right vertebral artery is dominant. There is no signifi cant stenosis of basilar artery or the posterior cerebral arteries. The posterior communicating arter ies are normal. There is no significant stenosis of the intracranial internal carotid arteries or ant erior or middle cerebral arteries. Anterior communicating artery is normal. There is no aneurysm. NECK CTA: There is mild emphysema. There are nodules in the thyroid measuring up to 14 mm, likely not clinically significant. There are no pathologically enlarged lymph nodes. There is no significant st enosis of the vertebral arteries. There is plaque in the proximal internal carotid arteries. There is 0% stenosis of the proximal right internal carotid artery relative to normal distal artery lumen gene meter (NASCET criteria). There is 0% stenosis of the proximal left internal carotid artery relative t o normal distal artery lumen diameter. There is a left subclavian port. There is moderate cervical sp ondylosis. IMPRESSION: 1. 2.2 cm meningioma lateral to right cerebellum. 2. No aneurysm or significant intracranial arterial stenosis. 3. 0% stenosis of the proximal internal carotid arteries relative to normal distal artery lumen diame ters (NASCET criteria). 4. Mild emphysema. Reviewed, dictated and finalized at location E. IMPRESSION: 1. 2.2 cm meningioma lateral to right cerebellum. 2. No aneurysm or significant intracranial arterial stenosis. 3. 0% stenosis of the proximal internal carotid arteries relative to normal dis sharon artery lumen diameters (NASCET criteria). 4. Mild emphysema.
--- NOTE | ~2023-07-01 | CT_ITS ---
EXAMINATION: CTA chest PE protocol DATE: 07/01/2023 12:55 INDICATION: Elevated troponin. Mild emphysema and dizziness. Pancreatic cancer. TECHNIQUE: Computed tomography (CT) pulmonary angiogram of the chest was performed with 100 mL Omnipa que-350 intravenous contrast. Additional 3D reconstructions utilizing coronal maximum intensity proje ction (MIP) were performed. Automated exposure control and iterative reconstruction technique were em ployed. The dose-length product was 503.19 mGy-cm. COMPARISON: None FINDINGS: No pulmonary embolism. Mild emphysema. Mild dependent atelectasis in bilateral lower lobes. No suspic ious pulmonary nodules, pneumonia, pulmonary edema, pleural effusion or pneumothorax. Heart size is n ormal. Small to moderate-sized pericardial effusion. Fusiform ascending thoracic aortic aneurysm chantal uring to 4.5 cm in maximal diameter. No pathologically enlarged thoracic lymphadenopathy. There are m ultiple masses scattered throughout the liver consistent with known metastatic disease. Partially vis ualized prereduction stent with expected secondary pneumobilia in the nondependent liver. Small amoun t of ascites in the visualized upper abdomen. 2.5 cm hypodense mass at the tail the pancreas consiste nt with reported pancreas cancer. Mild thoracic spondylosis with bridging osteophytes at multiple lev els consistent with diffuse idiopathic skeletal hyperostosis (DISH). IMPRESSION: 1. No pulmonary embolism. 2. Small to moderate-sized pericardial effusion. 3. 4.5 cm ascending thoracic aortic aneurysm. 4. 2.5 cm hypodense mass at the tail of pancreas consistent with reported pancreatic cancer and multi ple hypodense hepatic masses consistent with secondary metastatic disease. Reviewed, dictated and finalized at location A. IMPRESSION: 1. No pulmonary embolism. 2. Small to moderate-sized pericardial effusion. 3. 4.5 cm ascending thoracic aortic aneurysm. 4. 2.5 cm hypodense mass at the tail of pancreas consistent with reported pancr eatic cancer and multiple hypodense hepatic masses consistent with secondary me tastatic disease.
--- NOTE | ~2023-07-01 | CT_ITS ---
EXAMINATION: CT brain wo con DATE: 07/01/2023 11:07 INDICATION: Dizziness. Fall with posterior head injury. TECHNIQUE: Computed tomography (CT) of the head was performed without intravenous contrast. Sagittal and coronal reconstructions were performed. The mA was adjusted according to patient size. Iterative reconstruction technique was employed. The dose-length product was 605.33 mGy-cm. COMPARISON: None FINDINGS: No fracture. No acute intracranial hemorrhage, acute infarction or abnormal extra axial fluid collect ion. There is mild scattered white matter hypoattenuation consistent with chronic small vessel ischem ic disease. Symmetric prominence of the sulci and subarachnoid spaces overlying the convexities consi stent with mild age-appropriate diffuse cerebral volume loss. Ventricles are normal and symmetric. No mass/mass effect. The orbits, paranasal sinuses and mastoid air cells are normal. IMPRESSION: 1. No fracture or acute intracranial process. Line 2. Age-related changes including mild diffuse volume loss and mild scattered white matter hypoattenua tion consistent with chronic small vessel ischemic disease. Reviewed, dictated and finalized at location A. IMPRESSION: 1. No fracture or acute intracranial process. Line 2. Age-related changes including mild diffuse volume loss and mild scattered wh ite matter hypoattenuation consistent with chronic small vessel ischemic diseas eBassam
--- NOTE | ~2023-07-01 | MR_ITS ---
EXAMINATION: MR brain/brain stem wo/w con DATE: 07/02/2023 14:11 INDICATION: Stroke workup presenting with dizziness TECHNIQUE: Magnetic resonance imaging (MRI) of the brain and brainstem was performed without and with 14 mL Multihance intravenous contrast. Sequences included sagittal and axial T1-weighted SE, axial d iffusion-weighted FS SE, axial T2*-weighted GRE, axial T2-weighted FLAIR, and axial T2-weighted FSE. Postcontrast axial and coronal T1-weighted SE was obtained. Apparent diffusion coefficient (ADC) maps were created. COMPARISON: Head CT and CT angiogram dated 07/01/2023 FINDINGS: There are multiple small regions of restricted diffusion with associated increased T2 signal consiste nt with acute infarcts in the bilateral frontal, parietal and occipital lobes primarily with paramedi an distribution as well as in the bilateral cerebellar hemispheres. The bilateral distribution with b order zone predominance suggests possible hypotensive etiology. 2.2 x 1.9 x 1.7 cm enhancing extra-ax ial dural based mass at the right posterior fossa which exerts mass effect upon the adjacent lateral right cerebellar hemisphere most consistent with a meningioma. No other abnormally enhancing brain le sions. No intracranial hemorrhage. There are a few additional scattered foci of nonspecific increased T2-weighted signal intensity without corresponding restricted diffusion in the cerebral white matter , predominantly involving the deep and periventricular white matter which is within normal limits for age and likely sequela of chronic small vessel ischemic disease. There are no intraparenchymal signa l abnormalities seen on the other pulse sequences. The ventricles are symmetric and normal in size. T here are no abnormal extra-axial fluid collections. Flow voids are seen in the cerebral arteries on t he T2-weighted sequences consistent with their expected patency. Mild mucosal thickening at the bilat eral ethmoid sinuses. Visualized orbits and soft tissues are unremarkable. IMPRESSION: 1. Multiple small acute infarcts in the bilateral frontal, parietal and occipital lobes and bilateral cerebellar hemispheres. Distribution along the vascular border zone suggests possibility of a hypote nsive etiology. 2. 2.2 cm enhancing meningioma at the right posterior fossa. Reviewed, dictated and finalized at location A. IMPRESSION: 1. Multiple small acute infarcts in the bilateral frontal, parietal and occipit al lobes and bilateral cerebellar hemispheres. Distribution along the vascular border zone suggests possibility of a hypotensive etiology. 2. 2.2 cm enhancing meningioma at the right posterior fossa.
--- NOTE | 2023-07-01 10:41 | ED.DIZZY ---
HPI - Dizziness General Chief Complaint: Dizziness <Kiko Bautista APRN - Last Filed: 07/01/23 17:42> Stated Complaint: dizziness <Kiko Bautista APRN - Last Filed: 07/01/23 17:42> Time Seen by Provider: 07/01/23 10:41 <Kiko Bautista APRN - Last Filed: 07/01/23 17:42> Source: patient <Kiko Bautista APRN - Last Filed: 07/01/23 17:42> Mode of arrival: ambulatory <Kiko Bautista APRN - Last Filed: 07/01/23 17:42> Limitations: no limitations <Kiko Bautista APRN - Last Filed: 07/01/23 17:42> History of Present Illness HPI Narrative: Jasbir is an 82-year-old male patient presenting to the emergency room today with complaints of dizziness that started around 850 this morning. Was getting too early for muslim and felt as though he needed to go to the bathroom. States he felt as though he was unsteady on his feet. Did fall in the bathroom and struck the back of his head. No LOC. Did have an incontinent episode of stool. He reports he had associated nausea/vomiting with this dizziness and vomited. History of pancreatic cancer and is seeing Dr. Stacy. states cancer is very advanced. Has been on chemotherapy since March 09 however 6 weeks ago they discontinued his chemotherapy as it was not working and he has an appointment with [facility] on . Reports he is having abdominal discomfort to the left and right upper abdomen and to the posterior head. He is not taking any blood thinners. He is a former smoker. History of AAA, CKD, BPH, diabetes, hypertension, hyperlipidemia <Kiko Bautista APRN - Last Filed: 07/01/23 17:42> Related Data Home Medications: Home Medications Medication Instructions Recorded Confirmed amlodipine 5 mg tablet 5 mg HS 02/02/22 07/01/23 aspirin 81 mg tablet,delayed 81 mg PO DAILY 02/02/22 07/01/23 release atorvastatin 20 mg tablet 20 mg QAM 02/02/22 07/01/23 losartan 50 mg tablet 50 mg HS 02/02/22 07/01/23 metformin 500 mg tablet 500 mg HS 02/02/22 06/07/23 multivitamin 1 tablet PO DAILY 02/02/22 07/01/23 ondansetron HCl 4 mg tablet 8 mg PO Q6H PRN Nausea 02/02/22 07/01/23 ferrous sulfate 325 mg (65 mg 65 mg PO DAILY 04/12/22 07/01/23 iron) tablet (iron) potassium chloride 20 mEq 20 meq PO DAILY 04/18/22 06/07/23 tablet,extended release ascorbic acid (vitamin C) 500 mg 500 mg PO DAILY 03/09/23 07/01/23 tablet cholecalciferol (vitamin D3) 50 50 mcg PO DAILY 03/09/23 07/01/23 mcg (2,000 unit) capsule (Vitamin D3) vitamin B complex (B 1 tablet PO DAILY 03/09/23 06/07/23 Complex-Vitamin B12 tablet) furosemide 20 mg tablet 20 mg PO BID 07/01/23 07/01/23 <Kiko Bautista APRN - Last Filed: 07/01/23 17:42> Allergies/Adverse Reactions: Allergies Allergy/AdvReac Type Severity Reaction Status Date / Time No Known Allergies Allergy Verified 06/07/23 10:05 <Kiko Bautista APRN - Last Filed: 07/01/23 17:42> Review of Systems Review of Systems: Pertinent positives per HPI. Patient denies any fever, chills, rash, visual changes,cough, runny nose, sore throat, shortness of breath, chest pain, palpitations, diarrhea, constipation,or any urinary issues. <Kiko Bautista APRN - Last Filed: 07/01/23 17:42> [facility] Past Medical History Medical History: Medical History AAA (abdominal aortic aneurysm) BPH (benign prostatic hyperplasia) CKD (chronic kidney disease) stage 3, GFR 30-59 ml/min Diabetes HTN (hypertension) Hyperlipidemia Obesity Osteoarthritis Pancreatic cancer <Kiko Bautista APRN - Last Filed: 07/01/23 17:42> Social History Social History: Social History Smoking packs per day: 1 Smoking cigarettes per day: 20.0 Years smoked: 35 Smoking pack-years: 35.00 Smoking status: Former smoker Tobacco type: cigarettes Second h
[2023-07-01] MEDS: SODIUM CHLORIDE 0.9% IV 1,000 ML 999 ML IV CONT (11:10)
[2023-07-01 11:24] LABS: Basophils Percent Auto 0.3 % (0.2-1.2); Eosinophils Absolute Auto 0.1 K/mm3 (0-0.3); Eosinophils Percent Auto 0.6 % (0-4.4); Hematocrit 24.8 % (42.0-52.0); Hemoglobin 7.7 g/dL (14.0-18.0); Immature Granulocyte Absolute 0.03 K/mm3 (0.00-0.031); Immature Granulocyte Percent A 0.4 % (0-0.5); Lymphocytes Absolute Auto 0.39 K/mm3 (0.9-3.2); Lymphocytes Percent Auto 5.1 % (18.3-44.2); Mean Corpuscular Hemoglobin 28.4 pg (26-34); Mean Corpuscular Volume 91.5 fl (80-100); Mean Platelet Volume 11.2 fl (7.4-10.4); Monocytes Absolute Auto 0.6 K/mm3 (0.1-0.6); Monocytes Percent Auto 7.5 % (2.6-8.5); Neutrophils Absolute Auto 6.6 K/mm3 (1.3-6.7); Neutrophils Percent Auto 86.1 % (45.5-73.1); Platelet Count Result 117 k/mm3 (150-375); Red Blood Count 2.71 M/mm3 (4.6-6.20); White Blood Count 7.7 K/mm3 (4.5-10.0)
[2023-07-01 11:35] LABS: INR 1.4; Prothrombin Time 17.3 Seconds (11.1-14.7)
[2023-07-01 11:37] LABS: Alanine Aminotransferase 28 U/L (6-50); Albumin Level 3.1 g/dL (3.5-5.1); Alkaline Phosphatase 448 U/L (38-126); Anion Gap 7 mmol/L (4-12); Aspartate Amino Transferase 33 U/L (17-59); Bilirubin,Total 0.6 mg/dL (0.2-1.3); Blood Urea Nitrogen 28 mg/dL (9-20); Calcium 8.6 mg/dL (8.4-10.2); Carbon Dioxide 20 mmol/L (22-30); Chloride 110 mmol/L (98-107); Estimated CRCL calculation 46 ml/min; Estimated Glomerular Filt Rate 58; Glucose 143 mg/dL (65-110); Potassium 3.7 mmol/L (3.4-5.0); Sodium 137 mmol/L (137-145)
[2023-07-01 11:50] LABS: Troponin I 0.114 ng/mL (0.000-0.034)
[2023-07-01 12:16] LABS: NT Pro B Type Natriuretic Pept 867 pg/mL (19.9-100)
[2023-07-01 12:48] LABS: Appearance Urine Clear (Clear); Bacteria Urine None Seen /hpf; Bilirubin Urine Negative (Negative); Blood Urine Trace (Negative); Color Urine Yellow (Yellow); Glucose Urine UA Negative (Negative); Ketones Urine Negative (Negative); Leukocyte Esterase Ur Negative LEU/UL (Negative); Nitrate Urine Negative (Negative); Protein Urine Trace mg/dL (Negative); RBC Urine 0-2 /hpf (0-2); Specific Grav Ur 1.017 (1.001-1.035); Squamous Epithelial Cell Urine None Seen /hpf (Few); Urobilinogen Urine 0.2 mg/dL (<2.0); WBC Urine 0-5 /hpf (0-3)
[2023-07-01 13:20] LABS: Add Urine Microscopic? YES
--- NOTE | 2023-07-01 14:12 | ECG_ITS ---
SEE SCANNED COPY FOR CONFIRMED REPORT MTDD
[2023-07-01 14:49] LABS: Troponin I 0.122 ng/mL (0.000-0.034)
--- NOTE | 2023-07-01 16:56 | ADMGEN ---
This patient, Jasbir Crowder, was admitted to IMU Room 231-01. Patient/family oriented to hospital policies and general routines including ID bracelet, bed and alarms, visiting hours, pain management, procedures, bathroom and other care routines, personal items, smoking policy, room service/diet, and visiting hours. Information on how to activate the Rapid Response Team has been discussed. Patient/Family are encouraged to report perceived risks to care and to ask questions if they do not understand what they are told or what they should do.
[2023-07-01] MEDS: SODIUM CHLORIDE 0.9% IV 1,000 ML 125 ML IV CONT (17:00)
--- NOTE | 2023-07-01 17:06 | PM.IMHP ---
H&P: HPI History of Present Illness Date/Time: 07/01/23 17:06 Chief Complaint: N/V, dizziness, RUE Weakness Narrative: 82 y/o M presents here with nausea, vomiting, dizziness, right upper extremity weakness with PMH of AAA, BPH, CKD S3, diabetes, HTN, HLD, osteoarthritis, and pancreatic cancer (chemotherapy d/c'd in 02/2023). Patient presents here for further evaluation of nausea, vomiting, fall, dizziness and imbalance. States that he had sudden onset of dizziness around 8:50 a.m. this morning. Reports he was getting ready for buddhism when he felt fecal urgency. While attempting to get to the restroom, had gait imbalance, and subsequent fall. Reports positive head strike onto the sink without loss of consciousness. After fall had episode of fecal incontinence. Reporting associated nausea and vomiting accompanying the dizziness. Patient felt like he was spinning vs the room spinning. Denying chest pain, palpitations, increased shortness of breath compared to baseline, vision changes, poor appetite, diaphoresis, or trouble swallowing in the last 48 hours. Post fall he is reporting upper neck/occipital tenderness. Patient is not currently on any blood thinners. On 81 of ASA daily. Patient also is reporting weakness to his right upper extremity weakness, mild aphasia, and dysarthria that was first noted upon awakening Sunday morning around 0700. Went to bed without deficits at 11 pm on Sunday. Describes weakness as effecting his whole RUE, patient is right handed and noted difficulty with picking up objects and handwriting had worsened on Sunday. Does have history of pancreatic cancer with mets to the liver. Sees Tawanna TRUJILLO for oncology care, discovered in 2021, and was on chemotherapy but it has not been successful, and has appointment with [facility] ([facility]) on 07/04 to transition to their care. Has chronic fatigue, SOB with exertion, and intermittent diarrhea since diagnosis, these have not worsened in the last 24 hours. Reports unintentional weight loss 205 lbs -> 160 lbs over the past year. Initial VS at presentation: 97.9? F, HR 70, RR 12, 165/78, and 100% on RA. ED workup showed: No leukocytosis, Hgb 7.7 (8.1 on 06/07/23), platelet count 117, INR 1.4, PT 17.3, PTT 38, creatinine 1.2 and GFR 58, glucose 143, alk-phos 48, initial troponin 0.114, 867, and UA not suspicious for UTI. Head CT showed no acute intracranial process and age-related changes. Review of Systems Review of Systems: All systems reviewed & are unremarkable except as noted in HPI and below [facility] Past Medical History Medical History (Updated 07/02/23 @ 01:20 by Sofía Cortez APRN) AAA (abdominal aortic aneurysm) BPH (benign prostatic hyperplasia) CKD (chronic kidney disease) stage 3, GFR 30-59 ml/min Diabetes HTN (hypertension) Hyperlipidemia Obesity Osteoarthritis Pancreatic cancer Discovered in 2021, hepatic Mets Social History Social History Smoking packs per day: 1.5 Smoking cigarettes per day: 30.0 Years smoked: 35 Smoking pack-years: 52.50 Smoking status: Former smoker Tobacco type: cigarettes Second hand tobacco smoke exposure: No Smoking end date: 03/19/07 Additional smoking assessment comments: QUIT 2007 Alcohol intake: never Substance use: never Do You Feel Safe in your Home?: Yes Lack of Transportation: No Lack of Food: Never True Current Housing: I Have Housing Concerned About Future Housing: No Difficulty Paying Gas/Electric Bills: No Difficulty Paying for Meds: No Currently Unemployed: No Education: Grade School Difficulty w/ Childcare or Family Care: No Living arrangements: with family Spiritual care concerns: No Meds Home Medications and Allergies Home Medications Medication Instructions Recorded Confirmed Type amlodipine 5 mg tablet 5 mg HS 02/02/22 07/01/23 History aspirin 81 mg tablet,delayed 8
[2023-07-01 17:37] LABS: Troponin I 0.108 ng/mL (0.000-0.034)
[2023-07-01] MEDS: ASPIRIN 81 MG CHEWABLE TABLET 324 MG PO (18:34)
[2023-07-01] MEDS: LOSARTAN POTASSIUM 50 MG TABLET PO (22:48)
[2023-07-01] MEDS: amLODIPine BESYLATE 5 MG TABLET PO (22:48)
[2023-07-02] VITALS (16 sets, daily range): BP systolic 132–153; BP diastolic 53–69; PULSE 54–92; RESP 16–20; TEMP 36.5–36.9; O2SAT 96–100
[2023-07-02] MEDS: SODIUM CHLORIDE 0.9% IV 1,000 ML 125 ML IV CONT ×2 (01:11→09:00)
[2023-07-02 04:21] LABS: Basophils Percent Auto 0.3 % (0.2-1.2); Eosinophils Absolute Auto 0.3 K/mm3 (0-0.3); Eosinophils Percent Auto 2.7 % (0-4.4); Hematocrit 25.9 % (42.0-52.0); Hemoglobin 7.9 g/dL (14.0-18.0); Immature Granulocyte Absolute 0.05 K/mm3 (0.00-0.031); Immature Granulocyte Percent A 0.5 % (0-0.5); Immature Platelet Fraction Pct 4.1 % (0.9-11.2); Lymphocytes Absolute Auto 0.79 K/mm3 (0.9-3.2); Lymphocytes Percent Auto 7.9 % (18.3-44.2); Mean Corpuscular HGB Conc 30.5 g/dl (32-36); Mean Corpuscular Hemoglobin 28.2 pg (26-34); Mean Corpuscular Volume 92.5 fl (80-100); Mean Platelet Volume 11.6 fl (7.4-10.4); Monocytes Percent Auto 10.1 % (2.6-8.5); Neutrophils Absolute Auto 7.8 K/mm3 (1.3-6.7); Neutrophils Percent Auto 78.5 % (45.5-73.1); Platelet Count Result 130 k/mm3 (150-375); Red Cell Distribution Width 18.7 % (11.5-14.5); White Blood Count 9.9 K/mm3 (4.5-10.0)
[2023-07-02 04:29] LABS: Hemoglobin A1C 5.1 % (<5.7)
[2023-07-02 04:33] LABS: Cholesterol 64 mg/dL (0-200); HDL Direct 23 mg/dL; Triglycerides 85 mg/dL (<150)
[2023-07-02 04:36] LABS: Alanine Aminotransferase 27 U/L (6-50); Albumin Level 2.9 g/dL (3.5-5.1); Alkaline Phosphatase 436 U/L (38-126); Anion Gap 6 mmol/L (4-12); Aspartate Amino Transferase 34 U/L (17-59); Bilirubin,Total 0.6 mg/dL (0.2-1.3); Blood Urea Nitrogen 22 mg/dL (9-20); Calcium 8.6 mg/dL (8.4-10.2); Carbon Dioxide 21 mmol/L (22-30); Chloride 110 mmol/L (98-107); Estimated CRCL calculation 48 ml/min; Estimated Glomerular Filt Rate > 60; Glucose 61 mg/dL (65-110); Potassium 3.7 mmol/L (3.4-5.0); Sodium 137 mmol/L (137-145)
[2023-07-02 04:43] LABS: LDL Cholesterol Direct 37 mg/dL
[2023-07-02 04:51] LABS: Glucose Point of Care 66 mg/dl (65-105)
[2023-07-02] MEDS: DEXTROSE 50% 25 GM/50 ML SYRINGE IV PUSH (04:57)
[2023-07-02 05:27] LABS: Glucose Point of Care 101 mg/dl (65-105)
[2023-07-02 08:10] LABS: Glucose Point of Care 81 mg/dl (65-105)
--- NOTE | 2023-07-02 08:51 | PCSTNOTE ---
Please refer to the Bedside Swallow Evaluation in the EMR. Please note, silent aspiration cannot be ruled out at bedside.
[2023-07-02] MEDS: POTASSIUM CHLORIDE 20 MEQ ER TABLET PO (09:04)
[2023-07-02] MEDS: VITAMIN B COMPLEX CAPSULE 1 CAP PO (09:04)
[2023-07-02] MEDS: ASPIRIN 81 MG ENTERIC TABLET PO (09:04)
[2023-07-02] MEDS: FERROUS SULFATE 325 MG TABLET DR BY MOUTH (09:04)
[2023-07-02] MEDS: PANTOPRAZOLE SODIUM IV 40 MG VIAL IV PUSH (09:04)
[2023-07-02] MEDS: MULTIVITAMINS THERAPEUTIC TAB (*BKC) 1 TABLET PO (09:05)
[2023-07-02] MEDS: ENOXAPARIN 30 MG/0.3 ML SYRINGE SUB-Q (09:05)
[2023-07-02] MEDS: ATORVASTATIN 40 MG TABLET PO (09:05)
[2023-07-02] MEDS: CHOLECALCIFEROL 1,000 UNITS TABLET 2000 UNITS PO (09:05)
[2023-07-02] MEDS: ASCORBIC ACID 500 MG TABLET PO (09:05)
[2023-07-02] MEDS: FUROSEMIDE 20 MG TABLET PO (09:05)
--- NOTE | 2023-07-02 10:49 | ECG_ITS ---
SEE SCANNED COPY FOR CONFIRMED REPORT MTDD
--- NOTE | 2023-07-02 11:04 | PM.IMPN ---
Progress Note: A&P Assessment and Plan (1) Dizziness: Code(s): R42 - Dizziness and giddiness Status: Acute Assessment and Plan: Patient with acute onset dizziness, nausea and vomiting with associated garbled speech and right sided weakness. He did have a fall prior to admission. Was not felt to be a candidate for thrombolytics due to timeframe CXR: Mild emphysema. No acute cardiopulmonary disease. CT head: No fracture or acute intracranial process. CTA head/neck: 2.2 cm meningioma lateral to right cerebellum but no aneurysm or significant intracranial arterial stenosis. Neurology consulted and awaiting recommendations Brain MRI w/wo and echo w/Bubble ordered ST felt patient did well with bedside swallow without issue Continue neuro checks. PT/OT. Fall precautions Continue Atorvastatin and ASA Follow up on MRI. Check B12, Folate, TSH and VitD. MRI returned showing multiple small strokes in watershed areas. Spoke with patient and family and they were informed of results. Patient denies feeling LH with standing or having episodes of palpitations or low BP. Monitor on tele for dysrhythmias (2) Elevated troponin: Code(s): R79.89 - Other specified abnormal findings of blood chemistry Status: Acute Assessment and Plan: No CP prior to admission. EKG: first-degree AV block with rate of 74, no ST elevation, depression, or T-wave inversion. CXR as above. No previous echo or stress test on file Troponin peaked at 0.122 ASA 324 given once and now on ASA 81mg daily Cardiology consulted and appreciate their input; they did not feel the elevated Trop related to cardiac ischemia. Monitor on telemetry (3) CKD (chronic kidney disease) stage 3, GFR 30-59 ml/min: Code(s): N18.30 - Chronic kidney disease, stage 3 unspecified Status: Acute Assessment and Plan: Patient with CKD with baseline Cr 1-1.4 range. Creatinine 1.2 on admission and stable. He did receive contrast x2 yesterday and given 1 L bolus and remains on IV fluids Monitor renal function, electrolytes and UOP. Stop IV fluids after bag is complete; hold lasix/potassium Resume diet (4) Pancreatic cancer: Qualifiers: Pancreatic malignancy location: tail of pancreas Qualified Code(s): C25.2 - Malignant neoplasm of tail of pancreas Code(s): C25.9 - Malignant neoplasm of pancreas, unspecified Status: Acute Assessment and Plan: Pancreatic cancer discovered in 2021 treated with chemotherapy and did well initially. Was on maintenance therapy last Summer but he had recurrence late last year. He was started on a different chemotherapy regiment but the cancer has progressed with hepatic mets seen on CT in 04/[address] here. CA19-9 last Nov was [id number]. Plan for patient to be seen at [facility] for possible enrollment in study. Follows with Dr Stacy Will consult to see if the changes in he condition could be related to paraneoplastic syndrome (5) Diabetes: Code(s): E11.9 - Type 2 diabetes mellitus without complications Status: Acute Assessment and Plan: A1c 5.1. The patient's blood glucose was reviewed on 07/01 Glucose remains well controlled. DM well controlled probably related to his weight loss. Continue AccuCheks covering with sliding scale. Hypoglycemia protocol available as needed. Continue to monitor. Stop lantus and continue to hold metformin (6) HTN (hypertension): Code(s): I10 - Essential (primary) hypertension Status: Acute Assessment and Plan: Patient's blood pressure was reviewed on 07/01 Blood pressure remains elevated at times. Continue Norvasc and losartan. Hold lasix/potassium Will continue to monitor Plan Anemia - Iron studies last month showing anemia of chronic disease but with high STR so underlying iron deficiency. Continue iron supplements. Order B12/folate TCP - Patient with intermittent TCP for the past year. BM inv
--- NOTE | 2023-07-02 11:31 | PM.CNCAR ---
Assessment and Plan Assessment and plan (1) Elevated troponin: Code(s): R79.89 - Other specified abnormal findings of blood chemistry Status: Acute Plan This is an 82-year-old man with metastatic pancreatic cancer who has loss of balance and falling yesterday. He has extensive metastatic disease based on imaging. He does have a cerebellar mass that might have be playing will terms of his loss of balance and falling. The troponin levels were sampled for reasons that are not clear to me they are modestly elevated probably related to his anemia. There is no evidence of an acute coronary syndrome and he does not require cardiac ischemia workup while he is here. If you have any further questions regarding this man's cardiac status please let me know Pritesh Haywood MD [facility] History of Present Illness History of Present Illness Consult date/time: 07/02/23 11:31 Reason For Visit: Weakness/Dizziness/Pancreatic Cancer/Anemia/Elevat Narrative: This is an 82-year-old man I am seeing at the request of the hospitalist today because of elevation of his troponin level. The patient is not known to me prior to this consultation and is not known to have heart disease prior to this he does have a history of a aortic aneurysm that his physician has been following in the past. His recent serious health problems began in 2021 with pancreatic cancer. He is known to have advanced, metastatic pancreatic cancer which has not responded well to the chemotherapy and is advancing. He has been recommended by his oncologist to seek a consultation with the oncologist at [facility] in [place] to determine if he is a candidate for any investigative protocol. In any event he was brought to the hospital here yesterday after having a fall at home. He describes having difficulty with his balance and stumbling to 1 side and then took a fall. Did not have any loss of consciousness or singh syncope. He was brought to the emergency room with these complaints and that of generalized weakness. He had troponin levels drawn in the emergency room well as part of his evaluation and they are mildly elevated but all 3 levels are essentially the same with a flat low level elevation of troponin. His laboratory evaluation is also remarkable for anemia with a hemoglobin of 7.7. This appears to be chronic based on review of his records. Does not have any active cardiovascular complaints at this time and denies any other symptoms he did not remember having any chest pain pressure or heaviness yesterday prior to this episode. His evaluation also consists of CT scanning of his head which shows a a cerebellar mass that is felt to be most consistent with a meningioma according to the radiology report. Patient electrocardiogram does not show any signs of acute ischemia or injury. He is in the room the IMU with his and daughters at the bedside. Review of Systems Constitutional: Constitutional: Reports fatigue and Reports lethargy Eyes: Eyes: Reports no additional eye complaints ENT: Reports system reviewed and no additional complaints, except as documented Cardiovascular: Cardiovascular: Reports no additional cardiovascular complaints Respiratory: Respiratory: Reports no additional respiratory complaints Gastrointestinal: Gastrointestinal: Reports no additional gastrointestinal complaints Musculoskeletal: Musculoskeletal: Reports no additional musculoskeletal complaints Integumentary/Breasts: Skin/Breast: Reports system reviewed and no additional complaints, except as docu Neurologic: Reports as per HPI Endocrine: Endocrine: Reports no additional endocrine complaints Hematologic/Lymphatic: Hematologic/Lymphatic: Reports no additional hematologic/lymphatic complaints Allergic/Immunologic: Allergic/Immunologic: Reports no additional allergic/immunologic complaints FOR[facility]LY [facility], [facility] Past Medical History Medical History (Updated 07/02/23 @ 01:20 by Sofía Cortez
[2023-07-02 12:07] LABS: Glucose Point of Care 85 mg/dl (65-105)
[2023-07-02 14:22] LABS: Folic Acid > 20.0 ng/mL (2.76->20); Vitamin B12 > 1000.0 pg/mL (239-931)
[2023-07-02 17:09] LABS: Glucose Point of Care 175 mg/dl (65-105)
[2023-07-02] MEDS: ACETAMINOPHEN 325 MG TABLET 650 MG PO (18:01)
[2023-07-02 20:13] LABS: Glucose Point of Care 224 mg/dl (65-105)
[2023-07-02] MEDS: INSULIN ASPART (*BKC) 100 UNITS/ML SUB-Q (20:32)
[2023-07-02] MEDS: LOSARTAN POTASSIUM 50 MG TABLET PO (20:33)
[2023-07-02] MEDS: amLODIPine BESYLATE 5 MG TABLET PO (20:33)
--- NOTE | 2023-07-02 21:58 | ECHO_ITS ---
Patient Info Name: Jasbir Crowder Age: 82 years : 1940 Gender: Male Ht: 71 in Wt: 160 lbs BSA: 1.91 m2 HR: 62 bpm BP: 147 / 63 mmHg Heart Rhythm: Sinus Rhythm Technical Quality: Good Exam Date: 07/02/2023 10:51 AM Exam Location: Echo Lab Patient Status: Inpatient Admit Date: 07/01/2023 Staff Ordering Physician: Sofía Cortez APRN Steam Meter Reader: Nisreen Pisano RDCS Attending Provider: Wenceslao Mack MD Referring Physician: Dana CUENCA; Exam Type: CA echo doppler w bubble study Study Info Indications - cva Complete two-dimensional, color flow and Doppler transthoracic echocardiogram is performed with agitated saline. Contrast/Agitated Saline Contrast/Ag. Saline: Agitated Saline Amount: 20.00 ml Existing IV Access: Yes IV Access Condition: patent with no signs of infiltration Summary 1. Normal left ventricular size and systolic function with grade 1 diastolic noncompliance. 2. No valvular abnormalities other than trivial AI. 3. Trivial pericardial effusion. Left Ventricle Left ventricular chamber dimension is normal. Left ventricular systolic function is normal, estimated at 50-55%. The left ventricular diastolic function is grade I diastolic dysfunction. Right Ventricle Right ventricular chamber dimension is normal. Left Atria Left atrial chamber dimension is normal. Right Atria Right atrial chamber dimension is normal. Atrial Septum Intact interatrial septum visualized by agitated saline imaging. Aortic Valve The aortic valve is normal. There is trace aortic valve regurgitation. Pulmonic Valve The pulmonic valve is normal. Mitral Valve The mitral valve has normal leaflets. Tricuspid Valve The tricuspid valve leaflets are normal. Pericardium/Pleural There is trivial pericardial effusion. Aorta The aortic root size at the sinus of Valsalva is normal. Left Ventricular Outflow Tract Name Value Normal LVOT 2D LVOT Diameter 2.3 cm LVOT Doppler LVOT Peak Gradient 5 mmHg LVOT Mean Gradient 3 mmHg LVOT VTI 23 cm LVOT VTI/AV VTI Ratio 1.0 LVOT Stroke Volume 97 ml LVOT CO 6.4 l/min LVOT CI 3.4 l/min/m2 Pulmonic Valve Name Value Normal RVOT Doppler RVOT Peak Gradient 3 mmHg PV Doppler PV Peak Gradient 4 mmHg Mitral Valve Name Value Normal MV Doppler MV Decel Buchanan 1
[2023-07-03] VITALS (15 sets, daily range): BP systolic 147–164; BP diastolic 64–73; PULSE 54–91; RESP 16–18; TEMP 36.2–37.1; O2SAT 96–100; BMI 23.2
[2023-07-03 05:09] LABS: Basophils Percent Auto 0.2 % (0.2-1.2); Eosinophils Absolute Auto 0.3 K/mm3 (0-0.3); Eosinophils Percent Auto 3.1 % (0-4.4); Hematocrit 26.1 % (42.0-52.0); Hemoglobin 7.9 g/dL (14.0-18.0); Immature Granulocyte Absolute 0.04 K/mm3 (0.00-0.031); Immature Granulocyte Percent A 0.4 % (0-0.5); Lymphocytes Percent Auto 7.8 % (18.3-44.2); Mean Corpuscular HGB Conc 30.3 g/dl (32-36); Mean Corpuscular Hemoglobin 27.9 pg (26-34); Mean Corpuscular Volume 92.2 fl (80-100); Monocytes Absolute Auto 0.8 K/mm3 (0.1-0.6); Neutrophils Absolute Auto 7.2 K/mm3 (1.3-6.7); Neutrophils Percent Auto 79.5 % (45.5-73.1); Platelet Count Result 129 k/mm3 (150-375); Red Blood Count 2.83 M/mm3 (4.6-6.20); Red Cell Distribution Width 19.1 % (11.5-14.5)
[2023-07-03 05:18] LABS: Albumin Level 2.9 g/dL (3.5-5.1); Anion Gap 8 mmol/L (4-12); Blood Urea Nitrogen 20 mg/dL (9-20); Calcium 8.7 mg/dL (8.4-10.2); Carbon Dioxide 20 mmol/L (22-30); Chloride 112 mmol/L (98-107); Estimated CRCL calculation 41 ml/min; Estimated Glomerular Filt Rate 53; Glucose 87 mg/dL (65-110); Magnesium 2.2 mg/dL (1.6-2.3); Phosphorus 4.2 mg/dL (2.5-4.5); Potassium 3.6 mmol/L (3.4-5.0); Sodium 140 mmol/L (137-145)
[2023-07-03 06:08] LABS: Vitamin D 25 Hydroxy 18.4 ng/mL
[2023-07-03 08:17] LABS: Glucose Point of Care 108 mg/dl (65-105)
[2023-07-03 08:29] LABS: Iron 36 ug/dL (49-181)
[2023-07-03 08:38] LABS: Percent Iron Saturation 22 % (20-50)
[2023-07-03] MEDS: VITAMIN B COMPLEX CAPSULE 1 CAP PO (09:10)
[2023-07-03] MEDS: CHOLECALCIFEROL 1,000 UNITS TABLET 2000 UNITS PO (09:10)
[2023-07-03] MEDS: ASCORBIC ACID 500 MG TABLET PO (09:11)
[2023-07-03] MEDS: ASPIRIN 81 MG ENTERIC TABLET PO (09:11)
[2023-07-03] MEDS: MULTIVITAMINS THERAPEUTIC TAB (*BKC) 1 TABLET PO (09:11)
[2023-07-03] MEDS: ATORVASTATIN 40 MG TABLET PO (09:11)
[2023-07-03] MEDS: FERROUS SULFATE 325 MG TABLET DR BY MOUTH (09:11)
[2023-07-03] MEDS: PANTOPRAZOLE SODIUM IV 40 MG VIAL IV PUSH (09:11)
[2023-07-03] MEDS: ENOXAPARIN 40 MG/0.4 ML SYRINGE SUB-Q (09:17)
--- NOTE | 2023-07-03 10:40 | PDONCCN ---
HPI - Date of Consult Date/Time: 07/03/23 16:44 <Henry Stacy - 07/03/23 16:46> 07/03/23 10:40 <Viridiana Rebolledo - 07/03/23 10:44> Requesting Physician: Davin Mack MD <Henry Stacy - 07/03/23 16:46> Davin Mack MD <Viridiana Rebolledo - 07/03/23 10:44> Primary Care Provider: Apryl Winn <Henry Stacy - 07/03/23 16:46> Apryl Winn <Viridiana Rebolledo - 07/03/23 10:44> - Consult Narrative Reason for consult: Pancreatic cancer and anemia <Viridiana Rebolledo - 07/03/23 10:44> Narrative: Jasbir Crowder is a 82 year old male <Henry Stacy - 07/03/23 16:46> Jasbir Crowder is a 82 year old male with a past medical history of AAA, BPH, CKD3, DM, HTN, HLD, and pancreatic cancer diagnosed in January 2022. He was brought to the hospital after nausea, vomiting, and dizziness and weakness after using the bathroom on Sunday. He reports being unsteady, no balance, and had incontinent episode. Brain MRI shows multiple small infarcts with a hypotension etiology and a small hemangioma. 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 Chemotherapy was last given on on May 24, 2023 and patient remains quite anemic with progressive disease so chemotherapy was stopped and second opinion was requested from [facility]. His appetite remains stable, but has had weight loss. Denies any bleeding. He feels better today and would like to be seen at [facility] on . Labs are notable for Wbc 9.0, Hgb 7.9, Hct 26, Plt 129,000, Cr 1.30, Iron 36, % sat 22, Ferritin 805, B12 >1000. <Viridiana Rebolledo - 07/03/23 10:55> Review of Systems - Review of Systems All systems reviewed & are unremarkable except as noted in HPI and bel <Viridiana Rebolledo - 07/03/23 10:46> [facility] Medical History: Medical History (Last Updated 07/02/23 @ 01:20 by Sofía Cortez APRN) AAA (abdominal aortic aneurysm) BPH (benign prostatic hyperplasia) CKD (chronic kidney disease) stage 3, GFR 30-59 ml/min Diabetes HTN (hypertension) Hyperlipidemia Obesity Osteoarthritis Pancreatic cancer Discovered in 2021, hepatic Mets <Henry Stacy - 07/03/23 16:46> Medical History (Last Updated 07/02/23 @ 01:20 by Sofía Cortez APRN) AAA (abdominal aortic aneurysm) BPH (benign prostatic hyperplasia) CKD (chronic kidney disease) stage 3, GFR 30-59 ml/min Diabetes HTN (hypertension) Hyperlipidemia Obesity Osteoarthritis Pancreatic cancer Discovered in 2021, hepatic Mets <Viridiana Rebolledo - 07/03/23 10:44> - Social History Social History: Social History (Last Reviewed 07/01/23 @ 11:06 by Kiko Bautista APRN) Alcohol Use: Alcohol intake: never Substance Use: Substance use: never Others: Spiritual care concerns: No Living Arrangements: Living arrangements: with family Smoking Status: Smoking status: Former smoker Tobacco type: cigarettes Second hand tobacco smoke exposure: No Smoking end date: 03/19/07 Approximate Smoking End Date: 2007 Smoking Pack-years: Smoking packs per day: 1.5 Smoking cigarettes per day: 30.0 Years smoked: 35 Smoking pack-years: 35.00 Comments: Additional smoking assessment comments: QUIT 2007 Social Determinants of Health: Do You Feel Safe in your Home?: Yes Has the Lack of Transportation Kept You From Medical Appointments or From Getting Medications?: No Within the Past 12 Months, Were You Worried Whether Your Food Would Run Out Before You Got Money to Buy More?: Never True What is Your Housing Situation Today?: I Have Housing Are You Worried That in the Next 2 Months, You May Not Have Your Own Housing to Live In?: No Do You Have Trouble Paying Your Heating Or Electricity Bill?: No Do You Have Trouble Paying For Medicines?: No Are You Currently Unem
--- NOTE | 2023-07-03 11:41 | PC.NURSE ---
This RN took over caring for this patient
[2023-07-03 11:59] LABS: Glucose Point of Care 118 mg/dl (65-105)
[2023-07-03] MEDS: IRON SUCROSE COMPLEX 500 MG in SODIUM CHLORIDE 0.9% IV 250 ML 79 MG IVPB (12:20)
--- NOTE | 2023-07-03 13:39 | WPDNEURCNPN ---
Assessment and Plan Assessment and plan (1) Weakness: Code(s): R53.1 - Weakness Status: Acute (2) Dizziness: Code(s): R42 - Dizziness and giddiness Status: Acute (3) Pancreatic cancer: Qualifiers: Pancreatic malignancy location: tail of pancreas Qualified Code(s): C25.2 - Malignant neoplasm of tail of pancreas Code(s): C25.9 - Malignant neoplasm of pancreas, unspecified Status: Acute (4) Diabetes: Code(s): E11.9 - Type 2 diabetes mellitus without complications Status: Acute (5) CKD (chronic kidney disease) stage 3, GFR 30-59 ml/min: Code(s): N18.30 - Chronic kidney disease, stage 3 unspecified Status: Acute (6) AAA (abdominal aortic aneurysm): Code(s): I71.40 - Abdominal aortic aneurysm, without rupture, unspecified Status: Acute (7) Neuropathy: Code(s): G62.9 - Polyneuropathy, unspecified Status: Acute (8) Orthostatic hypotension: Code(s): I95.1 - Orthostatic hypotension Status: Acute Plan 1. Multiple infarcts involving anterior and posterior brain bilaterally with involvement of the cerebellar hemispheres as well raising the possibility of the hypotensive strokes 2. Right posterior fossa meningioma 3. No aneurysm or significant intracranial arterial stenosis 4. Ascending thoracic aortic aneurysm 5. Hypodensity mass at the tail end of the pancreas for which he is being treated with the diagnosis of pancreatic cancer 6. Neuropathy with gait dysfunction numbers neuropathic dizziness superimposed by the episodic postural dizziness most likely related to the hypotension. Plan is to support and document the orthostatic dizziness while is in the hospital and further care accordingly maybe he will require the ongoing support but again 1st we have to document the orthostatic dizziness while in the hospital, considering the underlying med and malignancy MRI of the thoracic and cervical spine and lumbar spine can be obtained to rule out a metastatic lesion central cord Consult date: 07/03/23 HPI: Jasbir Crowder is a 82 year old male Admitted to the hospital through the emergency room where he presented with complaints of dizziness and with information that he was getting to be get ready for the hinduism but felt as if he needed to go to the bathroom and noted that he was unsteady on his feet and subsequently fell in the bathroom his struck the back of his head though he did not become unconscious did have incontinence of the stool along with nausea and vomiting and dizziness. He does have ongoing history of pancreatic cancer for which he has been followed by Dr. Farshad Chua and the cancer is as per the very advanced for which he has been receiving chemotherapy and has gone through but about 6 weeks ago therapy was discontinued as it was not working reportedly he has an appointment with [facility] on comes in with he was also experiencing abdominal discomfort he was not taking any blood thinner but does have history of abdominal aortic aneurysm, benign prostatic hypertrophy, chronic kidney disease, diabetes mellitus, and hypertension. He has been taking multiple medications including aspirin 81mg daily atorvastatin 20mg daily metformin 500mg daily and losartan 50mg at night with amlodipine 5mg at night. As mentioned before has a history of abdominal aortic aneurysm, in addition to diabetes mellitus and cancer of the pancreas he has history of smoking packs per day 1, with ears smoked 35, though at present is a former smoker initial exam in the emergency room was grossly nonfocal vital signs were normal with blood pressure 165/78 CBC was with low platelet count of 1 1 7 and hemoglobin only 7.7 mast scanned normal subsequent MRI of the brain with multiple small acute infarcts in bilateral frontal lobe parietal lobes and occipital lobes and also both cerebellar hemisphere along the vascular border raising the possibility of hypotensiv
[2023-07-03 17:08] LABS: Glucose Point of Care 131 mg/dl (65-105)
--- NOTE | 2023-07-03 18:12 | PM.IMPN ---
Progress Note: A&P Assessment and Plan (1) Dizziness: Code(s): R42 - Dizziness and giddiness Status: Acute Assessment and Plan: Patient with acute onset dizziness, nausea and vomiting with associated garbled speech and right sided weakness. He did have a fall prior to admission. Was not felt to be a candidate for thrombolytics due to timeframe CXR: Mild emphysema. No acute cardiopulmonary disease. CT head: No fracture or acute intracranial process. CTA head/neck: 2.2 cm meningioma lateral to right cerebellum but no aneurysm or significant intracranial arterial stenosis. ST felt patient did well with bedside swallow without issue B12, Folate and TSH normal. VitD level low but on Vit D replacement; dose increased. Brain MRI showing multiple small strokes in watershed areas. [place] related to hypercoagulable state from his cancer. No dysrhythmias noted on tele Continue neuro checks. PT/OT. Fall precautions Continue Atorvastatin and ASA Neurology consulted and recommended MRI of the spine. Will clarify with neurology since patient is supposed to go to [facility] for evaluation and possibly for clinical study drug trial (left message with neurologist) (2) Elevated troponin: Code(s): R79.89 - Other specified abnormal findings of blood chemistry Status: Acute Assessment and Plan: No CP prior to admission. EKG: first-degree AV block with rate of 74, no ST elevation, depression, or T-wave inversion. CXR as above. No previous echo or stress test on file Troponin peaked at 0.122 ASA 324 given once and now on ASA 81mg daily Cardiology consulted and appreciate their input; they did not feel the elevated Trop related to cardiac ischemia. Monitor on telemetry (3) CKD (chronic kidney disease) stage 3, GFR 30-59 ml/min: Code(s): N18.30 - Chronic kidney disease, stage 3 unspecified Status: Acute Assessment and Plan: Patient with CKD with baseline Cr 1-1.4 range and 1.2 on admission He did receive contrast x2 and given 1 L bolus and was on IV fluids Eating well. Off IV fluids. Holding lasix/potassium Cr stable Monitor renal function, electrolytes and UOP. (4) Pancreatic cancer: Qualifiers: Pancreatic malignancy location: tail of pancreas Qualified Code(s): C25.2 - Malignant neoplasm of tail of pancreas Code(s): C25.9 - Malignant neoplasm of pancreas, unspecified Status: Acute Assessment and Plan: Pancreatic cancer discovered in 2021 treated with chemotherapy and did well initially. Was on maintenance therapy last Summer but he had recurrence late last year. He was started on a different chemotherapy regiment but the cancer has progressed with hepatic mets seen on CT in 04/[address] here. CA19-9 last Nov was [id number]. Plan for patient to be seen at [facility] for possible enrollment in study. Follows with Dr Stacy (5) Diabetes: Code(s): E11.9 - Type 2 diabetes mellitus without complications Status: Acute Assessment and Plan: A1c 5.1. The patient's blood glucose was reviewed on 07/02 Glucose remains well controlled. DM well controlled probably related to his weight loss. Continue AccuCheks covering with sliding scale. Hypoglycemia protocol available as needed. Continue to monitor. Continue to hold metformin and lantus (6) HTN (hypertension): Code(s): I10 - Essential (primary) hypertension Status: Acute Assessment and Plan: Patient's blood pressure was reviewed on 07/02 Blood pressure elevated at times Continue Norvasc and losartan. Hold lasix/potassium Will continue to monitor Plan Anemia - Iron studies last month showing anemia of chronic disease but with high STR so underlying iron deficiency. Continue iron supplements. B12/folate okay. IV iron ordered TCP - Patient with intermittent TCP for the past year. BM involvement? Sequestration? Stable today. DVT Prophylaxis: Lovenox Code Status:
[2023-07-03 20:46] LABS: Glucose Point of Care 204 mg/dl (65-105)
[2023-07-03] MEDS: LOSARTAN POTASSIUM 50 MG TABLET PO (20:56)
[2023-07-03] MEDS: amLODIPine BESYLATE 5 MG TABLET PO (20:56)
[2023-07-03] MEDS: INSULIN ASPART (*BKC) 100 UNITS/ML SUB-Q (21:13)
[2023-07-04] VITALS (7 sets, daily range): BP systolic 133–163; BP diastolic 55–73; PULSE 60–96; RESP 14–18; TEMP 36.4–36.8; O2SAT 97–100
[2023-07-04] MEDS: ACETAMINOPHEN 325 MG TABLET 650 MG PO (03:07)
[2023-07-04 07:36] LABS: Glucose Point of Care 97 mg/dl (65-105)
[2023-07-04] MEDS: ATORVASTATIN 40 MG TABLET PO (08:37)
[2023-07-04] MEDS: ENOXAPARIN 40 MG/0.4 ML SYRINGE SUB-Q (08:37)
[2023-07-04] MEDS: PANTOPRAZOLE SODIUM IV 40 MG VIAL IV PUSH (08:37)
[2023-07-04] MEDS: ASCORBIC ACID 500 MG TABLET PO (08:37)
[2023-07-04] MEDS: FERROUS SULFATE 325 MG TABLET DR BY MOUTH (08:37)
[2023-07-04] MEDS: CHOLECALCIFEROL 1,000 UNITS TABLET 2000 UNITS PO ×2 (08:37→17:33)
[2023-07-04] MEDS: MULTIVITAMINS THERAPEUTIC TAB (*BKC) 1 TABLET PO (08:37)
[2023-07-04] MEDS: VITAMIN B COMPLEX CAPSULE 1 CAP PO (08:37)
[2023-07-04] MEDS: ASPIRIN 81 MG ENTERIC TABLET PO (08:37)
[2023-07-04 12:03] LABS: Glucose Point of Care 106 mg/dl (65-105)
--- NOTE | 2023-07-04 16:16 | PM.IMPN ---
Progress Note: A&P Assessment and Plan (1) Dizziness: Code(s): R42 - Dizziness and giddiness Status: Acute Assessment and Plan: Patient with acute onset dizziness, nausea and vomiting with associated garbled speech and right sided weakness. He did have a fall prior to admission. Was not felt to be a candidate for thrombolytics due to timeframe CXR: Mild emphysema. No acute cardiopulmonary disease. CT head: No fracture or acute intracranial process. CTA head/neck: 2.2 cm meningioma lateral to right cerebellum but no aneurysm or significant intracranial arterial stenosis. ST felt patient did well with bedside swallow without issue B12, Folate and TSH normal. VitD level low but on Vit D replacement; dose increased. Brain MRI showing multiple small strokes in watershed areas. [place] related to hypercoagulable state from his cancer. No dysrhythmias noted on tele Continue neuro checks. PT/OT. Fall precautions Continue Atorvastatin and ASA Neurology consulted and recommended MRI of the spine. Will clarify with neurology since patient is supposed to go to [facility] for evaluation and possibly for clinical study drug trial (left message with neurologist) (2) Elevated troponin: Code(s): R79.89 - Other specified abnormal findings of blood chemistry Status: Acute Assessment and Plan: No CP prior to admission. EKG: first-degree AV block with rate of 74, no ST elevation, depression, or T-wave inversion. CXR as above. No previous echo or stress test on file Troponin peaked at 0.122 ASA 324 given once and now on ASA 81mg daily Cardiology consulted and appreciate their input; they did not feel the elevated Trop related to cardiac ischemia. Monitor on telemetry (3) CKD (chronic kidney disease) stage 3, GFR 30-59 ml/min: Code(s): N18.30 - Chronic kidney disease, stage 3 unspecified Status: Acute Assessment and Plan: Patient with CKD with baseline Cr 1-1.4 range and 1.2 on admission He did receive contrast x2 and given 1 L bolus and was on IV fluids Eating well. Off IV fluids. Holding lasix/potassium Cr stable (4) Pancreatic cancer: Qualifiers: Pancreatic malignancy location: tail of pancreas Qualified Code(s): C25.2 - Malignant neoplasm of tail of pancreas Code(s): C25.9 - Malignant neoplasm of pancreas, unspecified Status: Acute Assessment and Plan: Pancreatic cancer discovered in 2021 treated with chemotherapy and did well initially. Was on maintenance therapy last Summer but he had recurrence late last year. He was started on a different chemotherapy regiment but the cancer has progressed with hepatic mets seen on CT in 04/[address] here. CA19-9 last Nov was 5737. Plan for patient to be seen at [facility] for possible enrollment in study. Follows with Dr Stacy (5) Diabetes: Code(s): E11.9 - Type 2 diabetes mellitus without complications Status: Acute Assessment and Plan: A1c 5.1. The patient's blood glucose was reviewed on 07/02 Glucose remains well controlled. DM well controlled probably related to his weight loss. Continue AccuCheks covering with sliding scale. Hypoglycemia protocol available as needed. Continue to monitor. Continue to hold metformin and lantus (6) HTN (hypertension): Code(s): I10 - Essential (primary) hypertension Status: Acute Assessment and Plan: Patient's blood pressure was reviewed on 07/02 Blood pressure elevated at times Continue Norvasc and losartan. Hold lasix/potassium BP slightly high 150/40 Plan Anemia -chronic iron defeciency. Continue iron supplements. B12/folate okay. IV iron ordered DVT Prophylaxis: Lovenox Code Status: Full code Subjective Date/time seen: 07/04/23 16:16 Interval history: 82yo male with metastatic pancreatic CA, DM and HTN here for dizziness. Pt found to have a stroke pt having R sided weakness continue
[2023-07-04 16:48] LABS: Glucose Point of Care 200 mg/dl (65-105)
[2023-07-04] MEDS: IRON SUCROSE COMPLEX 100 MG in SODIUM CHLORIDE 0.9% IV 50 ML 220 MG IVPB (17:33)
[2023-07-04 20:26] LABS: Glucose Point of Care 155 mg/dl (65-105)
[2023-07-04] MEDS: LOSARTAN POTASSIUM 50 MG TABLET PO (20:58)
[2023-07-04] MEDS: amLODIPine BESYLATE 5 MG TABLET PO (20:58)
[2023-07-05 05:05] LABS: Hemoglobin 8.5 g/dL (14.0-18.0); Mean Corpuscular HGB Conc 31.5 g/dl (32-36); Mean Corpuscular Hemoglobin 28.5 pg (26-34); Mean Corpuscular Volume 90.6 fl (80-100); Mean Platelet Volume 11.3 fl (7.4-10.4); Platelet Count Result 142 k/mm3 (150-375); Red Blood Count 2.98 M/mm3 (4.6-6.20); White Blood Count 9.5 K/mm3 (4.5-10.0)
[2023-07-05 05:22] LABS: Anion Gap 4 mmol/L (4-12); Blood Urea Nitrogen 14 mg/dL (9-20); Calcium 8.5 mg/dL (8.4-10.2); Carbon Dioxide 25 mmol/L (22-30); Chloride 109 mmol/L (98-107); Estimated CRCL calculation 39 ml/min; Estimated Glomerular Filt Rate 49; Glucose 93 mg/dL (65-110); Potassium 3.1 mmol/L (3.4-5.0); Sodium 138 mmol/L (137-145)
[2023-07-05 07:38] VITALS: BP 161/72; PULSE 75; RESP 14; TEMP 36.2; O2SAT 100
[2023-07-05 07:57] LABS: Glucose Point of Care 105 mg/dl (65-105)
[2023-07-05] MEDS: PANTOPRAZOLE SODIUM IV 40 MG VIAL IV PUSH (09:47)
[2023-07-05] MEDS: VITAMIN B COMPLEX CAPSULE 1 CAP PO (09:47)
[2023-07-05] MEDS: ASPIRIN 81 MG ENTERIC TABLET PO (09:47)
[2023-07-05] MEDS: FERROUS SULFATE 325 MG TABLET DR BY MOUTH (09:47)
[2023-07-05] MEDS: MULTIVITAMINS THERAPEUTIC TAB (*BKC) 1 TABLET PO (09:47)
[2023-07-05] MEDS: ATORVASTATIN 40 MG TABLET PO (09:47)
[2023-07-05] MEDS: ASCORBIC ACID 500 MG TABLET PO (09:47)
[2023-07-05] MEDS: ENOXAPARIN 40 MG/0.4 ML SYRINGE SUB-Q (09:47)
[2023-07-05] MEDS: CHOLECALCIFEROL 1,000 UNITS TABLET 2000 UNITS PO (09:47)
--- NOTE | 2023-07-05 11:22 | PM.DS ---
DS: Admitting Diagnosis Discharge Date 07/05/2023 Admitting Diagnosis N/V, dizziness, RUE Weakness DS: Discharge Diagnosis Discharge Diagnosis (1) Dizziness: Code(s): R42 - Dizziness and giddiness Status: Acute Assessment and Plan: Patient with acute onset dizziness, nausea and vomiting with associated garbled speech and right sided weakness. He did have a fall prior to admission. Was not felt to be a candidate for thrombolytics due to timeframe CXR: Mild emphysema. No acute cardiopulmonary disease. CT head: No fracture or acute intracranial process. CTA head/neck: 2.2 cm meningioma lateral to right cerebellum but no aneurysm or significant intracranial arterial stenosis. ST felt patient did well with bedside swallow without issue B12, Folate and TSH normal. VitD level low but on Vit D replacement; dose increased. Brain MRI showing multiple small strokes in watershed areas. [place] related to hypercoagulable state from his cancer. No dysrhythmias noted on tele Continue Atorvastatin and ASA Neurology consulted and recommended MRI of the spine. Will clarify with neurology since patient is supposed to go to [facility] for evaluation and possibly for clinical study drug trial (left message with neurologist). Pt can have MRI spine at [facility]. (2) Elevated troponin: Code(s): R79.89 - Other specified abnormal findings of blood chemistry Status: Acute Assessment and Plan: No CP prior to admission. EKG: first-degree AV block with rate of 74, no ST elevation, depression, or T-wave inversion. CXR as above. No previous echo or stress test on file Troponin peaked at 0.122 ASA 324 given once and now on ASA 81mg daily Cardiology consulted and appreciate their input; they did not feel the elevated Trop related to cardiac ischemia. Monitor on telemetry (3) CKD (chronic kidney disease) stage 3, GFR 30-59 ml/min: Code(s): N18.30 - Chronic kidney disease, stage 3 unspecified Status: Acute Assessment and Plan: Patient with CKD with baseline Cr 1-1.4 range and 1.2 on admission He did receive contrast x2 and given 1 L bolus and was on IV fluids Eating well. Off IV fluids. Holding lasix/potassium Cr stable (4) Pancreatic cancer: Qualifiers: Pancreatic malignancy location: tail of pancreas Qualified Code(s): C25.2 - Malignant neoplasm of tail of pancreas Code(s): C25.9 - Malignant neoplasm of pancreas, unspecified Status: Acute Assessment and Plan: Pancreatic cancer discovered in 2021 treated with chemotherapy and did well initially. Was on maintenance therapy last Summer but he had recurrence late last year. He was started on a different chemotherapy regiment but the cancer has progressed with hepatic mets seen on CT in 04/[address] on [address] here. CA19-9 last Nov was 5737. Plan for patient to be seen at [facility] for possible enrollment in study. Follows with Dr Stacy (5) Diabetes: Code(s): E11.9 - Type 2 diabetes mellitus without complications Status: Acute Assessment and Plan: A1c 5.1. The patient's blood glucose was reviewed on 07/02 Glucose remains well controlled. DM well controlled probably related to his weight loss. Continue AccuCheks covering with sliding scale. Hypoglycemia protocol available as needed. restart DM meds on DC (6) HTN (hypertension): Code(s): I10 - Essential (primary) hypertension Status: Acute Assessment and Plan: Patient's blood pressure was reviewed on 07/02 Blood pressure elevated at times Continue Norvasc and losartan. Plan Anemia -chronic iron defeciency. Continue iron supplements. B12/folate okay. IV iron ordered DS: Summary Hospital Course Hospital Course: 82 y/o M presents here with nausea, vomiting, dizziness, right upper extremity weakness with PMH of AAA, BPH, CKD S3, diabetes, HTN, HLD, osteoarthritis, and pancreatic cancer (chemothera
[2023-07-05] MEDS: ACETAMINOPHEN 325 MG TABLET 650 MG PO (11:34)
[2023-07-05] MEDS: POTASSIUM CHLORIDE 20 MEQ PACKET (FOR LIQUID) 40 MEQ PO (11:38)
[2023-07-05 11:41] LABS: Glucose Point of Care 116 mg/dl (65-105)
--- NOTE | 2023-07-05 12:57 | WPDNEUROPN ---
Progress Note: A&P Assessment and Plan (1) Stroke: Code(s): I63.9 - Cerebral infarction, unspecified Status: Acute (2) Pancreatic cancer: Qualifiers: Pancreatic malignancy location: tail of pancreas Qualified Code(s): C25.2 - Malignant neoplasm of tail of pancreas Code(s): C25.9 - Malignant neoplasm of pancreas, unspecified Status: Acute Plan Mr. Crowder is an 82 year old male with a history of HTN and pancreatic cancer presenting due to RUE weakness. MRI brain showed multifocal infarcts concerning for watershed stroke. Vessel imaging was unrevealing. There was no documented hypotensive episodes on presentation. In fact he has been more hypertensive. HLD and HgbA1c are appropriate. It's possible that the stroke is multifactorial -- hypercoagulability fro underlying malignancy, in the setting of anemia. Given bihemispheric involvement, and involvement of anterior and posterior circulation, worth looking more into possible cardioembolic causes as well. No atrial fibrillation/atrial flutter documented during admission. Echo was negative for shunt. MRI brain also showed meningioma adjacent to R cerebellar hemisphere -- could be cause of dizziness. Patient is already on aspirin 81mg daily and Lipitor 40mg daily. I would add Plavix 75mg daily, x 3 weeks as long as it is okay from an anemia and thrombocytopenia standpoint. I also recommend 30 day event monitoring as well for further work-up for potential cardioembolic cause. Please have him follow-up in Neurology clinic after discharge in about 6-8 weeks. Subjective Date/time seen: 07/05/23 12:57 Interval history: Mr. Crowder is an 82 year old male with a history of abdominal aortic aneurysm, BPH, CKD, diabetes, HTN, HLD, osteoarthritis, and pancreatic cancer who presented due to RUE weakness. On Wednesday 06/28 he went to bed without any deficits, however the next morning he work up with RUE weakness, difficulty with his speech. He was ultimately found to have acute infarcts in the bilateral frontal, parietal, occipital lobes and bilateral cerebellar hemispheres -- concerning for hypotensive etiology. CTA brain/carotid showed no carotid stenosis or any significant large vessel disease. There was a 2cm meningioma noted adjacent to the R cerebellar hemisphere. He is already on aspirin 81mg daily. Patient also reported feeling dizzy around the time of his symptom onset, and had a fall but no LOC. LDL is 37. His HgbA1c is 5.1. He already takes Lipitor 40mg daily. EKG showed sinus rhythm with first degree AV block. Echo was negative for shunt. BP has ranged from the 130-160s systolic. I do not see any evidence of hypotension. I do not see any orthostatic vitals. His Hgb is 8.5 today. Patient has a history of metastatic pancreatic cancer. Review of Systems Review of Systems: All systems reviewed & are unremarkable except as noted in HPI and below Exam Const: General: comfortable and no acute distress HENMT: Mouth: Yes moist mucous membranes Eyes: Pupils: Equal, round and reactive pupils present EOM: EOMs intact bilaterally Resp: Effort & Inspection: normal respiratory effort Skin: General skin exam: normal color Neuro: Other: AOx3, Pupils equal and reactive bilaterally, EOMI, face symmetric, facial sensation intact, tongue protrudes midline, palate midline. Shoulder shrug normal. Strength 4+/5 in RUE, 5/5 in LUE, equal in bilateral lower extremities. Symmetric symmetric bilaterally. Language comprehension and fluency intact. Gait deferred. Extrem: General: normal to inspection Psych: Mental Status: mental status grossly normal Objective Data Vital Signs Vital Signs: Vital Signs - 24 hr 07/04/23 16:00 07/04/23 19:41 07/04/23 20:00 Temperature 36.7 C 36.8 C Pulse Rate 68 60 Respiratory Rate 16 18 Blood Pressure 163/67 H 146/66 H Pulse Oximetry 100 100 Oxygen Delivery Room Air 07/05/23 07:38 Temperature 36.2 C L Pulse
--- NOTE | 2023-07-05 14:45 | PCCCNOTE ---
On 07/05/23, the student, Deepika Moralez, provided care and completed [facility] documentation on this patient. I have reviewed the student's documentation and agree with the findings.
[2023-07-09 12:43] LABS: Soluble Transferrin Receptor 1.68 mg/L (0.76-1.76)
== END 2023-07-05 13:00 | disposition home health service (06) ==
LOC: ANHED 11:26 → ANHIMU 15:12
PROVIDERS: Nurse Practitioner Family; Student in an Organized Health Care Education/Training Program; Admitting Provider Internal Medicine; Emergency Provider Nurse Practitioner Family; Visit Provider Family Medicine
DX: I63.333 Cerebral infarction due to thrombosis of bilateral posterior cerebral arteries (principal); I63.323 Cerebral infarction due to thrombosis of bilateral anterior cerebral arteries; G81.91 Hemiplegia, unspecified affecting right dominant side; S09.90XA Unspecified injury of head, initial encounter; W18.30XA Fall on same level, unspecified, initial encounter; Y92.002 Bathroom of unspecified non-institutional (private) residence as the place of occurrence of the external cause; R79.89 Other specified abnormal findings of blood chemistry; R26.89 Other abnormalities of gait and mobility; R94.31 Abnormal electrocardiogram [ECG] [EKG]; I12.9 Hypertensive chronic kidney disease with stage 1 through stage 4 chronic kidney disease, or unspecified chronic kidney disease; E11.22 Type 2 diabetes mellitus with diabetic chronic kidney disease; N18.30 Chronic kidney disease, stage 3 unspecified; D63.1 Anemia in chronic kidney disease; C25.2 Malignant neoplasm of tail of pancreas; C78.7 Secondary malignant neoplasm of liver and intrahepatic bile duct; T45.1X5A Adverse effect of antineoplastic and immunosuppressive drugs, initial encounter; D64.81 Anemia due to antineoplastic chemotherapy; E11.42 Type 2 diabetes mellitus with diabetic polyneuropathy; R47.01 Aphasia; I95.1 Orthostatic hypotension; D32.0 Benign neoplasm of cerebral meninges; I31.39 Other pericardial effusion (noninflammatory); R10.32 Left lower quadrant pain; J43.9 Emphysema, unspecified; D50.9 Iron deficiency anemia, unspecified; I71.40 Abdominal aortic aneurysm, without rupture, unspecified; N40.0 Benign prostatic hyperplasia without lower urinary tract symptoms; E78.5 Hyperlipidemia, unspecified; M19.90 Unspecified osteoarthritis, unspecified site; R29.702 NIHSS score 2; Z86.73 Personal history of transient ischemic attack (TIA), and cerebral infarction without residual deficits; Z87.891 Personal history of nicotine dependence; Z79.82 Long term (current) use of aspirin; Z79.84 Long term (current) use of oral hypoglycemic drugs; Z79.4 Long term (current) use of insulin; Z79.899 Other long term (current) drug therapy
CPT/HCPCS: 36415; 70450; 70496; 70498; 70553; 71046; 71275; 80048; 80053; 80061; 80069; 81001; 82306; 82607; 82728; 82746; 82948; 83036; 83540; 83550; 83735; 83880; 84238; 84443; 84484; 85025; 85027; 85055; 85610; 85730; 92610; 93005; 93306; 96361; 96372; 96374; 96375; 96376; 97110; 97112; 97116; 97162; 97166; 97530; 97535; 99285; A9270; A9577; C9113; G0378; J1650; J1756; J1815; J7030; J7050; Q9967

== ENCOUNTER 2023-07-13 11:03 | Outpatient (NON) | payer MEDICARE, SELFPAY ==
[2023-07-13 11:46] LABS: Hemoglobin 8.8 g/dL (14.0-18.0); Immature Platelet Fraction Pct 6.2 % (0.9-11.2); Mean Corpuscular HGB Conc 30.3 g/dl (32-36); Mean Corpuscular Hemoglobin 28.7 pg (26-34); Mean Corpuscular Volume 94.5 fl (80-100); Platelet Count Result 105 k/mm3 (150-375); Red Blood Count 3.07 M/mm3 (4.6-6.20); Red Cell Distribution Width 19.9 % (11.5-14.5); White Blood Count 8.5 K/mm3 (4.5-10.0)
[2023-07-13 11:58] LABS: Alanine Aminotransferase 26 U/L (6-50); Albumin Level 3.2 g/dL (3.5-5.1); Alkaline Phosphatase 582 U/L (38-126); Anion Gap 6 mmol/L (4-12); Aspartate Amino Transferase 35 U/L (17-59); Bilirubin,Total 0.8 mg/dL (0.2-1.3); Blood Urea Nitrogen 24 mg/dL (9-20); Calcium 8.9 mg/dL (8.4-10.2); Carbon Dioxide 25 mmol/L (22-30); Chloride 109 mmol/L (98-107); Cholesterol 73 mg/dL (0-200); Estimated Glomerular Filt Rate 49; Glucose 132 mg/dL (65-110); HDL Direct 24 mg/dL; Sodium 140 mmol/L (137-145); Triglycerides 112 mg/dL (<150)
[2023-07-13 12:09] LABS: LDL Cholesterol Direct 45 mg/dL
[2023-07-13 12:10] LABS: Parathyroid Intact 82.4 pg/mL (7.5-53.5)
[2023-07-13 12:22] LABS: Iron 39 ug/dL (49-181)
[2023-07-13 12:28] LABS: Creatinine Urine 79.5 mg/dL; Percent Iron Saturation 24 % (20-50); Total Protein Urine Random 15 mg/dL; Ur Ttl Prot Creatinine Ratio 0.19 mg/mg (0-0.20)
[2023-07-13 12:30] LABS: Vitamin D 25 Hydroxy 33.2 ng/mL
[2023-07-13 12:33] LABS: MALB Creatinine Ratio 42.1 mg/g (0-30); Microalbumin Urine Random 33.5 mg/L (0-16.7)
== END 2023-07-13 11:04 | disposition home or self-care (01) ==
PROVIDERS: Visit Provider Internal Medicine Nephrology
DX: E11.22 Type 2 diabetes mellitus with diabetic chronic kidney disease (principal); I12.9 Hypertensive chronic kidney disease with stage 1 through stage 4 chronic kidney disease, or unspecified chronic kidney disease; N18.30 Chronic kidney disease, stage 3 unspecified; C25.9 Malignant neoplasm of pancreas, unspecified; G13.0 Paraneoplastic neuromyopathy and neuropathy; G47.33 Obstructive sleep apnea (adult) (pediatric); E78.00 Pure hypercholesterolemia, unspecified
CPT/HCPCS: 80053; 80061; 82043; 82306; 82570; 82728; 83036; 83540; 83550; 83735; 83970; 84156; 85027; 85055

== ENCOUNTER 2023-07-20 11:08 | Outpatient (CLI) | payer MEDICARE, SELFPAY ==
--- NOTE | ~2023-07-20 | US_ITS ---
EXAMINATION: US paracentesis abd w/image DATE: 07/20/2023 11:56 INDICATION: Ascites. TECHNIQUE: The procedure and its risks and benefits were discussed with the patient. Potential risks discussed included bleeding and infection. The skin was prepped and draped in sterile fashion. 1% lid ocaine was used for local anesthesia. Under ultrasound guidance, a 5 Fr catheter with trochar was adv anced into the ascites in the right lower quadrant. Fluid was aspirated into vacuum bottles. The cath eter was removed, and a dressing was applied. There were no immediate complications. FINDINGS: Ultrasound images demonstrate ascites and the catheter within the fluid. IMPRESSION: 1. Successful ultrasound-guided paracentesis yielding 600 mL of cloudy yellowish fluid. Reviewed, dictated and finalized at location A. IMPRESSION: 1. Successful ultrasound-guided paracentesis yielding 600 mL of cloudy yellowi sh fluid.
== END 2023-07-20 11:09 | disposition home or self-care (01) ==
PROVIDERS: Visit Provider Internal Medicine Hematology & Oncology
DX: R18.8 Other ascites (principal)
CPT/HCPCS: 49083

== ENCOUNTER 2023-07-27 10:30 | Outpatient (RCR) | payer MEDICARE, SELFPAY ==
--- NOTE | 2022-02-13 16:04 | PC.NURSE ---
Spoke with Wendi Garcia, she will call in home medications Emla cream and ondansetron. I will advise patient to have OTC Imodium and a stool softener at home.
[2022-02-27 08:56] LABS: Basophils Percent Auto 0.3 % (0.2-1.2); Eosinophils Absolute Auto 0.3 K/mm3 (0-0.3); Hematocrit 36.5 % (42.0-52.0); Hemoglobin 12.4 g/dL (14.0-18.0); Immature Granulocyte Absolute 0.03 K/mm3 (0.00-0.031); Immature Granulocyte Percent A 0.3 % (0-0.5); Lymphocytes Absolute Auto 1.17 K/mm3 (0.9-3.2); Lymphocytes Percent Auto 12.3 % (18.3-44.2); Mean Corpuscular Hemoglobin 29.5 pg (26-34); Mean Corpuscular Volume 86.9 fl (80-100); Mean Platelet Volume 9.4 fl (7.4-10.4); Monocytes Absolute Auto 0.6 K/mm3 (0.1-0.6); Neutrophils Absolute Auto 7.5 K/mm3 (1.3-6.7); Neutrophils Percent Auto 78.1 % (45.5-73.1); Platelet Count Result 221 k/mm3 (150-375); Red Cell Distribution Width 12.4 % (11.5-14.5); White Blood Count 9.6 K/mm3 (4.5-10.0)
[2022-02-27 08:57] VITALS: BP 144/66; PULSE 80; TEMP 36.1; O2SAT 98
[2022-02-27 09:00] LABS: Blood Urea Nitrogen 24 mg/dL (8-26); Carbon Dioxide 24 mmol/L (22-30); Chloride 101 mmol/L (98-109); Estimated CRCL calculation 43 ml/min; Estimated Glomerular Filt Rate 53; Glucose 242 mg/dL (70-105); Ionized Calcium (POC) 1.19 mmol/L (1.11-1.31); Sodium 137 mmol/L (138-146)
[2022-02-27] MEDS: PALONOSETRON HCL 0.25 MG/5 ML VIAL IV PUSH (09:38)
[2022-02-27] MEDS: diphenhydrAMINE HCl INJ 50 MG/ML VIAL 25 MG IV PUSH (09:38)
[2022-02-27] MEDS: FAMOTIDINE 20 MG/2 ML VIAL IV PUSH (09:38)
[2022-02-27] MEDS: OXALIPLATIN 170 MG in DEXTROSE 5% IN WATER 216 ML 125 MG IVPB (10:23)
[2022-02-27 12:41] LABS: Alanine Aminotransferase 32 U/L (6-50); Albumin Level 4.1 g/dL (3.5-5.1); Alkaline Phosphatase 180 U/L (38-126); Anion Gap 8 mmol/L (8-16); Aspartate Amino Transferase 28 U/L (17-59); Bilirubin,Total 0.7 mg/dL (0.2-1.3); Blood Urea Nitrogen 23 mg/dL (9-20); Calcium 8.8 mg/dL (8.4-10.2); Carbon Dioxide 24 mmol/L (22-30); Chloride 100 mmol/L (98-107); Estimated CRCL calculation 46 ml/min; Estimated Glomerular Filt Rate 58; Glucose 226 mg/dL (65-110); Potassium 3.9 mmol/L (3.4-5.0); Sodium 132 mmol/L (137-145)
[2022-02-27] MEDS: LEUCOVORIN CALCIUM 800 MG in SODIUM CHLORIDE 0.9% IV 210 ML 125 MG IVPB (12:43)
[2022-02-27] MEDS: ATROPINE SULFATE 1 MG/ML VIAL 0.25 MG SUB-Q (12:46)
[2022-02-27] MEDS: FLUOROURACIL 4,800 MG in SODIUM CHLORIDE 0.9% IV 88 ML IVPB (15:00)
[2022-02-27 15:03] VITALS: BP 143/60
--- NOTE | 2022-02-28 14:03 | PC.NURSE ---
Called patient to follow-up 24 hours after starting new treatment. Patient denies any side effects, questions or concerns at this time.
--- NOTE | 2022-03-01 13:23 | PC.NURSE ---
Pump disconnect, patient stable.
[2022-03-01 13:24] VITALS: BP 132/57; PULSE 72; TEMP 36.7; O2SAT 99
[2022-03-01] MEDS: HEPARIN SODIUM LOCK FLUSH 500 UNITS/5 ML SYRINGE IV PUSH (13:31)
[2022-03-15 08:59] LABS: Basophils Absolute Auto 0.1 K/mm3 (0.0-0.1); Basophils Percent Auto 0.9 % (0.2-1.2); Eosinophils Absolute Auto 0.3 K/mm3 (0-0.3); Eosinophils Percent Auto 4.7 % (0-4.4); Hematocrit 31.5 % (42.0-52.0); Hemoglobin 10.8 g/dL (14.0-18.0); Immature Granulocyte Absolute 0.09 K/mm3 (0.00-0.031); Immature Granulocyte Percent A 1.4 % (0-0.5); Lymphocytes Absolute Auto 1.31 K/mm3 (0.9-3.2); Lymphocytes Percent Auto 19.8 % (18.3-44.2); Mean Corpuscular HGB Conc 34.3 g/dl (32-36); Mean Corpuscular Hemoglobin 29.3 pg (26-34); Mean Corpuscular Volume 85.4 fl (80-100); Mean Platelet Volume 8.8 fl (7.4-10.4); Monocytes Absolute Auto 0.8 K/mm3 (0.1-0.6); Monocytes Percent Auto 12.7 % (2.6-8.5); Neutrophils Percent Auto 60.5 % (45.5-73.1); Platelet Count Result 255 k/mm3 (150-375); Red Blood Count 3.69 M/mm3 (4.6-6.20); White Blood Count 6.6 K/mm3 (4.5-10.0)
[2022-03-15 09:05] LABS: Blood Urea Nitrogen 17 mg/dL (8-26); Carbon Dioxide 23 mmol/L (22-30); Chloride 104 mmol/L (98-109); Estimated CRCL calculation 50 ml/min; Estimated Glomerular Filt Rate > 60; Glucose 149 mg/dL (70-105); Ionized Calcium (POC) 1.23 mmol/L (1.11-1.31); Potassium 3.8 mmol/L (3.5-4.9); Sodium 139 mmol/L (138-146)
[2022-03-15 09:57] VITALS: BP 135/63; PULSE 63; RESP 18; TEMP 36; O2SAT 100
[2022-03-15] MEDS: PALONOSETRON HCL 0.25 MG/5 ML VIAL IV PUSH (10:16)
[2022-03-15] MEDS: diphenhydrAMINE HCl INJ 50 MG/ML VIAL 25 MG IV PUSH (10:16)
[2022-03-15] MEDS: FAMOTIDINE 20 MG/2 ML VIAL IV PUSH (10:16)
[2022-03-15 10:43] LABS: Alanine Aminotransferase 53 U/L (6-50); Albumin Level 3.6 g/dL (3.5-5.1); Alkaline Phosphatase 199 U/L (38-126); Anion Gap 6 mmol/L (8-16); Aspartate Amino Transferase 29 U/L (17-59); Bilirubin,Total 0.5 mg/dL (0.2-1.3); Blood Urea Nitrogen 17 mg/dL (9-20); Calcium 8.7 mg/dL (8.4-10.2); Carbon Dioxide 25 mmol/L (22-30); Chloride 107 mmol/L (98-107); Estimated CRCL calculation 50 ml/min; Estimated Glomerular Filt Rate > 60; Glucose 149 mg/dL (65-110); Potassium 3.8 mmol/L (3.4-5.0); Sodium 138 mmol/L (137-145)
[2022-03-15] MEDS: OXALIPLATIN 170 MG in DEXTROSE 5% IN WATER 216 ML 125 MG IVPB (11:05)
[2022-03-15] MEDS: LEUCOVORIN CALCIUM 800 MG in SODIUM CHLORIDE 0.9% IV 210 ML 125 MG IVPB (13:12)
[2022-03-15] MEDS: ATROPINE SULFATE 1 MG/ML VIAL 0.25 MG SUB-Q (13:14)
[2022-03-15 15:38] VITALS: BP 148/69; PULSE 88; RESP 18; O2SAT 99
[2022-03-15] MEDS: FLUOROURACIL 4,800 MG in SODIUM CHLORIDE 0.9% IV 88 ML IVPB (15:41)
--- NOTE | 2022-03-17 13:40 | PC.NURSE ---
Patient here for pump disconnect, patient stable.
[2022-03-17 13:42] VITALS: BP 133/69; PULSE 73; TEMP 36; O2SAT 99
[2022-03-17] MEDS: HEPARIN SODIUM LOCK FLUSH 500 UNITS/5 ML SYRINGE IV PUSH (13:50)
[2022-03-29 08:58] LABS: Basophils Percent Auto 0.3 % (0.2-1.2); Eosinophils Absolute Auto 0.2 K/mm3 (0-0.3); Eosinophils Percent Auto 6.7 % (0-4.4); Hematocrit 30.6 % (42.0-52.0); Hemoglobin 10.4 g/dL (14.0-18.0); Immature Granulocyte Absolute 0.01 K/mm3 (0.00-0.031); Immature Granulocyte Percent A 0.3 % (0-0.5); Lymphocytes Percent Auto 28.8 % (18.3-44.2); Mean Corpuscular Hemoglobin 29.4 pg (26-34); Mean Corpuscular Volume 86.4 fl (80-100); Mean Platelet Volume 9.1 fl (7.4-10.4); Monocytes Absolute Auto 0.7 K/mm3 (0.1-0.6); Monocytes Percent Auto 22.1 % (2.6-8.5); Neutrophils Absolute Auto 1.3 K/mm3 (1.3-6.7); Neutrophils Percent Auto 41.8 % (45.5-73.1); Platelet Count Result 160 k/mm3 (150-375); Red Blood Count 3.54 M/mm3 (4.6-6.20); Red Cell Distribution Width 13.4 % (11.5-14.5); White Blood Count 3.1 K/mm3 (4.5-10.0)
[2022-03-29 09:02] LABS: Blood Urea Nitrogen 21 mg/dL (8-26); Carbon Dioxide 21 mmol/L (22-30); Chloride 106 mmol/L (98-109); Estimated CRCL calculation 40 ml/min; Estimated Glomerular Filt Rate 49; Glucose 139 mg/dL (70-105); Ionized Calcium (POC) 1.24 mmol/L (1.11-1.31); Potassium 3.7 mmol/L (3.5-4.9); Sodium 137 mmol/L (138-146)
[2022-03-29 09:58] VITALS: BP 129/58; PULSE 73; TEMP 36.1; O2SAT 100
[2022-03-29] MEDS: FAMOTIDINE 20 MG/2 ML VIAL IV PUSH (10:22)
[2022-03-29] MEDS: PALONOSETRON HCL 0.25 MG/5 ML VIAL IV PUSH (10:22)
[2022-03-29] MEDS: diphenhydrAMINE HCl INJ 50 MG/ML VIAL 25 MG IV PUSH (10:22)
[2022-03-29 10:36] LABS: Alanine Aminotransferase 25 U/L (6-50); Albumin Level 3.8 g/dL (3.5-5.1); Alkaline Phosphatase 172 U/L (38-126); Anion Gap 7 mmol/L (8-16); Aspartate Amino Transferase 21 U/L (17-59); Bilirubin,Total 0.5 mg/dL (0.2-1.3); Blood Urea Nitrogen 22 mg/dL (9-20); Calcium 8.8 mg/dL (8.4-10.2); Carbon Dioxide 22 mmol/L (22-30); Chloride 104 mmol/L (98-107); Estimated CRCL calculation 43 ml/min; Estimated Glomerular Filt Rate 53; Glucose 138 mg/dL (65-110); Potassium 3.7 mmol/L (3.4-5.0); Sodium 133 mmol/L (137-145)
[2022-03-29] MEDS: OXALIPLATIN 170 MG in DEXTROSE 5% IN WATER 216 ML 125 MG IVPB (10:58)
[2022-03-29] MEDS: ATROPINE SULFATE 1 MG/ML VIAL 0.25 MG SUB-Q (13:09)
[2022-03-29] MEDS: LEUCOVORIN CALCIUM 800 MG in SODIUM CHLORIDE 0.9% IV 210 ML 125 MG IVPB (13:10)
[2022-03-29 15:37] VITALS: BP 136/63
[2022-03-29] MEDS: FLUOROURACIL 4,800 MG in SODIUM CHLORIDE 0.9% IV 88 ML IVPB (15:38)
[2022-03-31 14:01] VITALS: BP 133/63; PULSE 73; RESP 18; TEMP 36.6; O2SAT 100
[2022-03-31] MEDS: HEPARIN SODIUM LOCK FLUSH 500 UNITS/5 ML SYRINGE IV PUSH (14:09)
[2022-04-12 08:44] LABS: Hematocrit 22.9 % (42.0-52.0); Hemoglobin 7.7 g/dL (14.0-18.0); Mean Corpuscular HGB Conc 33.6 g/dl (32-36); Mean Corpuscular Hemoglobin 28.9 pg (26-34); Mean Corpuscular Volume 86.1 fl (80-100); Mean Platelet Volume 9.1 fl (7.4-10.4); Platelet Count Result 262 k/mm3 (150-375); Red Blood Count 2.66 M/mm3 (4.6-6.20); Red Cell Distribution Width 14.8 % (11.5-14.5); White Blood Count 5.7 K/mm3 (4.5-10.0)
[2022-04-12 08:51] LABS: Blood Urea Nitrogen 19 mg/dL (8-26); Carbon Dioxide 19 mmol/L (22-30); Chloride 107 mmol/L (98-109); Estimated CRCL calculation 32 ml/min; Estimated Glomerular Filt Rate 36; Glucose 150 mg/dL (70-105); Ionized Calcium (POC) 1.24 mmol/L (1.11-1.31); Sodium 139 mmol/L (138-146)
[2022-04-12 08:54] LABS: Band Neutrophils Percent 19 % (0-6); Eosinophils Absolute Manual 0.05 K/mm3 (0.02-0.5); Eosinophils Percent Manual 1 % (0-4); Lymphocytes Absolute Manual 1.76 K/mm3 (1.1-4.5); Metamyelocytes Percent 6 %; Monocytes Absolute Manual 0.91 K/mm3 (0.1-0.90); Monocytes Percent Manual 16 % (3-9); Myelocytes Percent 2 %; Neutrophils Percent Manual 25 % (46-73); Nucleated Red Blood Cells 5 %; Total Cells Counted 100
[2022-04-12 08:55] LABS: Anisocytosis 1+ (NORMAL); Crenated RBC 1+ (NORMAL); Ovalocytes 1+ (NORMAL); Platelet Estimate Adequate (Adequate); Poikilocytosis 2+ (NORMAL)
[2022-04-12] MEDS: HEPARIN SODIUM LOCK FLUSH 500 UNITS/5 ML SYRINGE (09:13)
[2022-04-12 09:22] LABS: Schistocytes None Seen (NORMAL)
[2022-04-12 13:22] LABS: Alanine Aminotransferase 24 U/L (6-50); Albumin Level 3.3 g/dL (3.5-5.1); Alkaline Phosphatase 138 U/L (38-126); Anion Gap 8 mmol/L (8-16); Aspartate Amino Transferase 22 U/L (17-59); Bilirubin,Total 0.4 mg/dL (0.2-1.3); Blood Urea Nitrogen 19 mg/dL (9-20); Calcium 8.5 mg/dL (8.4-10.2); Carbon Dioxide 20 mmol/L (22-30); Chloride 106 mmol/L (98-107); Estimated CRCL calculation 33 ml/min; Estimated Glomerular Filt Rate 39; Glucose 142 mg/dL (65-110); Sodium 134 mmol/L (137-145)
[2022-04-18 08:25] LABS: Hematocrit 23.7 % (42.0-52.0); Hemoglobin 7.6 g/dL (14.0-18.0); Mean Corpuscular HGB Conc 32.1 g/dl (32-36); Mean Corpuscular Hemoglobin 28.9 pg (26-34); Mean Corpuscular Volume 90.1 fl (80-100); Platelet Count Result 273 k/mm3 (150-375); Red Blood Count 2.63 M/mm3 (4.6-6.20); Red Cell Distribution Width 16.1 % (11.5-14.5); White Blood Count 13.2 K/mm3 (4.5-10.0)
[2022-04-18 08:30] LABS: Blood Urea Nitrogen 21 mg/dL (8-26); Carbon Dioxide 24 mmol/L (22-30); Chloride 107 mmol/L (98-109); Estimated CRCL calculation 33 ml/min; Estimated Glomerular Filt Rate 39; Glucose 180 mg/dL (70-105); Potassium 4.4 mmol/L (3.5-4.9); Sodium 140 mmol/L (138-146)
[2022-04-18 08:33] LABS: Band Neutrophils Percent 13 % (0-6); Crenated RBC 1+ (NORMAL); Eosinophils Absolute Manual 0.26 K/mm3 (0.02-0.5); Eosinophils Percent Manual 2 % (0-4); Hypochromasia 1+ (NORMAL); Lymphocytes Absolute Manual 1.98 K/mm3 (1.1-4.5); Metamyelocytes Percent 3 %; Monocytes Absolute Manual 1.18 K/mm3 (0.1-0.90); Monocytes Percent Manual 9 % (3-9); Neutrophils Absolute Manual 9.37 K/mm3 (1.3-6.7); Neutrophils Percent Manual 58 % (46-73); Ovalocytes 1+ (NORMAL); Platelet Estimate Adequate (Adequate); Poikilocytosis 2+ (NORMAL); Schistocytes None Seen (NORMAL); Total Cells Counted 100
[2022-04-18] MEDS: HEPARIN SODIUM LOCK FLUSH 500 UNITS/5 ML SYRINGE (09:26)
[2022-04-18 09:54] LABS: Alanine Aminotransferase 28 U/L (6-50); Albumin Level 3.4 g/dL (3.5-5.1); Alkaline Phosphatase 169 U/L (38-126); Anion Gap 7 mmol/L (8-16); Aspartate Amino Transferase 28 U/L (17-59); Bilirubin,Total 0.4 mg/dL (0.2-1.3); Blood Urea Nitrogen 19 mg/dL (9-20); Calcium 8.5 mg/dL (8.4-10.2); Carbon Dioxide 24 mmol/L (22-30); Chloride 105 mmol/L (98-107); Estimated CRCL calculation 33 ml/min; Estimated Glomerular Filt Rate 39; Glucose 179 mg/dL (65-110); Potassium 4.4 mmol/L (3.4-5.0); Sodium 136 mmol/L (137-145)
--- NOTE | 2022-04-20 14:25 | PHAR ---
FLUOROURACIL DOSE REDUCED FROM 4,100MG TO 4,000 MG (2.5%) DUE TO VIAL SIZE TO REDUCE WASTE
[2022-04-22 04:43] LABS: CA 19-9 8579 U/mL (<34)
[2022-04-25 09:20] LABS: Hematocrit 29.9 % (42.0-52.0); Hemoglobin 9.9 g/dL (14.0-18.0); Mean Corpuscular HGB Conc 33.1 g/dl (32-36); Mean Corpuscular Hemoglobin 29.9 pg (26-34); Mean Corpuscular Volume 90.3 fl (80-100); Mean Platelet Volume 9.5 fl (7.4-10.4); Platelet Count Result 198 k/mm3 (150-375); Red Blood Count 3.31 M/mm3 (4.6-6.20); Red Cell Distribution Width 16.2 % (11.5-14.5); White Blood Count 19.3 K/mm3 (4.5-10.0)
[2022-04-25 09:23] LABS: Blood Urea Nitrogen 25 mg/dL (8-26); Carbon Dioxide 26 mmol/L (22-30); Chloride 101 mmol/L (98-109); Estimated CRCL calculation 35 ml/min; Estimated Glomerular Filt Rate 42; Glucose 232 mg/dL (70-105); Ionized Calcium (POC) 1.19 mmol/L (1.11-1.31); Potassium 4.5 mmol/L (3.5-4.9); Sodium 137 mmol/L (138-146)
[2022-04-25 09:25] LABS: Band Neutrophils Percent 5 % (0-6); Lymphocytes Absolute Manual 0.19 K/mm3 (1.1-4.5); Monocytes Absolute Manual 0.38 K/mm3 (0.1-0.90); Monocytes Percent Manual 2 % (3-9); Neutrophils Absolute Manual 18.72 K/mm3 (1.3-6.7); Neutrophils Percent Manual 92 % (46-73); Platelet Estimate Adequate (Adequate); Schistocytes None Seen (NORMAL); Total Cells Counted 100
[2022-04-25 09:26] LABS: Ovalocytes 1+ (NORMAL); Poikilocytosis 1+ (NORMAL)
[2022-04-25 09:43] VITALS: BP 110/56; PULSE 83; TEMP 36.9; O2SAT 99
[2022-04-25] MEDS: PALONOSETRON HCL 0.25 MG/5 ML VIAL IV PUSH (09:58)
[2022-04-25] MEDS: FAMOTIDINE 20 MG/2 ML VIAL IV PUSH (09:59)
[2022-04-25] MEDS: diphenhydrAMINE HCl INJ 50 MG/ML VIAL 25 MG IV PUSH (09:59)
[2022-04-25 11:36] LABS: Alanine Aminotransferase 444 U/L (6-50); Albumin Level 3.8 g/dL (3.5-5.1); Alkaline Phosphatase 240 U/L (38-126); Anion Gap 7 mmol/L (8-16); Aspartate Amino Transferase 496 U/L (17-59); Bilirubin,Total 1.3 mg/dL (0.2-1.3); Blood Urea Nitrogen 26 mg/dL (9-20); Calcium 8.7 mg/dL (8.4-10.2); Carbon Dioxide 26 mmol/L (22-30); Chloride 99 mmol/L (98-107); Estimated CRCL calculation 38 ml/min; Estimated Glomerular Filt Rate 45; Glucose 219 mg/dL (65-110); Potassium 4.5 mmol/L (3.4-5.0); Sodium 132 mmol/L (137-145)
[2022-04-25] MEDS: ATROPINE SULFATE 1 MG/ML VIAL 0.25 MG SUB-Q (12:48)
[2022-04-25 15:09] VITALS: BP 131/62
[2022-04-25] MEDS: EPOETIN ALFA-EPBX 10,000 UNITS/ML VIAL 20000 UNITS SUB-Q (15:19)
[2022-04-27 14:26] VITALS: BP 121/60; PULSE 70; TEMP 36.6; O2SAT 99
[2022-04-27] MEDS: HEPARIN SODIUM LOCK FLUSH 500 UNITS/5 ML SYRINGE IV PUSH (14:36)
--- NOTE | 2022-04-27 14:44 | PC.NURSE ---
Pump disconnect, patient voices no concerns. Patient was in the emergency room yesterday. Patient with positive blood cultures, patient started on Flagyl by the emergency room. Instructed patient to worm picker antibiotics from his pharmacy. Patient being started on Cipro.
[2022-05-09 08:30] LABS: Hematocrit 28.7 % (42.0-52.0); Hemoglobin 9.2 g/dL (14.0-18.0); Mean Corpuscular HGB Conc 32.1 g/dl (32-36); Mean Corpuscular Volume 90.5 fl (80-100); Mean Platelet Volume 9.8 fl (7.4-10.4); Platelet Count Result 198 k/mm3 (150-375); Red Blood Count 3.17 M/mm3 (4.6-6.20); Red Cell Distribution Width 15.5 % (11.5-14.5); White Blood Count 2.2 K/mm3 (4.5-10.0)
[2022-05-09 08:39] LABS: Blood Urea Nitrogen 17 mg/dL (8-26); Carbon Dioxide 25 mmol/L (22-30); Chloride 104 mmol/L (98-109); Estimated CRCL calculation 46 ml/min; Estimated Glomerular Filt Rate 58; Glucose 218 mg/dL (70-105); Ionized Calcium (POC) 1.19 mmol/L (1.11-1.31); Potassium 3.9 mmol/L (3.5-4.9); Sodium 139 mmol/L (138-146)
[2022-05-09 08:43] LABS: Atypical Lymphocytes Present; Band Neutrophils Percent 4 % (0-6); Lymphocytes Absolute Manual 0.83 K/mm3 (1.1-4.5); Metamyelocytes Percent 2 %; Monocytes Absolute Manual 0.48 K/mm3 (0.1-0.90); Monocytes Percent Manual 22 % (3-9); Neutrophils Absolute Manual 0.83 K/mm3 (1.3-6.7); Neutrophils Percent Manual 34 % (46-73); Platelet Estimate Adequate (Adequate); Schistocytes None Seen (NORMAL); Total Cells Counted 50
[2022-05-09 09:16] VITALS: BP 130/57; PULSE 69; TEMP 36.5; O2SAT 99
[2022-05-09] MEDS: PALONOSETRON HCL 0.25 MG/5 ML VIAL IV PUSH (09:33)
[2022-05-09] MEDS: diphenhydrAMINE HCl INJ 50 MG/ML VIAL 25 MG IV PUSH (09:33)
[2022-05-09] MEDS: FAMOTIDINE 20 MG/2 ML VIAL IV PUSH (09:33)
--- NOTE | 2022-05-09 09:33 | PHAR ---
Biosimilar substitution per protocol: NEULASTA will be subbed to FULPHILA([id number]). Patient will be notified of substitution by nurse during education or at their first treatment.
[2022-05-09] MEDS: EPOETIN ALFA-EPBX 10,000 UNITS/ML VIAL 20000 UNITS SUB-Q (09:34)
[2022-05-09 09:48] LABS: Alanine Aminotransferase 34 U/L (6-50); Albumin Level 3.5 g/dL (3.5-5.1); Alkaline Phosphatase 174 U/L (38-126); Anion Gap 4 mmol/L (8-16); Aspartate Amino Transferase 27 U/L (17-59); Bilirubin,Total 0.5 mg/dL (0.2-1.3); Blood Urea Nitrogen 18 mg/dL (9-20); Calcium 8.2 mg/dL (8.4-10.2); Carbon Dioxide 27 mmol/L (22-30); Chloride 107 mmol/L (98-107); Estimated CRCL calculation 50 ml/min; Estimated Glomerular Filt Rate > 60; Glucose 208 mg/dL (65-110); Potassium 3.9 mmol/L (3.4-5.0); Sodium 138 mmol/L (137-145)
[2022-05-09] MEDS: ATROPINE SULFATE 1 MG/ML VIAL 0.25 MG SUB-Q (12:23)
[2022-05-09 14:43] VITALS: BP 149/69
[2022-05-11 12:47] VITALS: BP 125/68; PULSE 98; TEMP 36.8; O2SAT 71
[2022-05-11] MEDS: HEPARIN SODIUM LOCK FLUSH 500 UNITS/5 ML SYRINGE IV PUSH (12:51)
[2022-05-12 14:18] VITALS: BP 132/58; PULSE 74; RESP 16; TEMP 36.9; O2SAT 100
[2022-05-12] MEDS: PEGFILGRASTIM-JMDB 6 MG/0.6 ML SYRINGE SUB-Q (14:23)
[2022-05-23 08:26] LABS: Hematocrit 29.6 % (42.0-52.0); Hemoglobin 9.7 g/dL (14.0-18.0); Mean Corpuscular HGB Conc 32.8 g/dl (32-36); Mean Corpuscular Hemoglobin 29.6 pg (26-34); Mean Corpuscular Volume 90.2 fl (80-100); Mean Platelet Volume 8.9 fl (7.4-10.4); Platelet Count Result 96 k/mm3 (150-375); Red Blood Count 3.28 M/mm3 (4.6-6.20); Red Cell Distribution Width 17.1 % (11.5-14.5); White Blood Count 17.6 K/mm3 (4.5-10.0)
[2022-05-23 08:31] LABS: Blood Urea Nitrogen 18 mg/dL (8-26); Carbon Dioxide 21 mmol/L (22-30); Chloride 110 mmol/L (98-109); Estimated CRCL calculation 43 ml/min; Estimated Glomerular Filt Rate 53; Glucose 164 mg/dL (70-105); Ionized Calcium (POC) 1.22 mmol/L (1.11-1.31); Potassium 3.6 mmol/L (3.5-4.9); Sodium 143 mmol/L (138-146)
[2022-05-23 08:32] LABS: Band Neutrophils Percent 13 % (0-6); Lymphocytes Absolute Manual 1.76 K/mm3 (1.1-4.5); Metamyelocytes Percent 3 %; Monocytes Percent Manual 4 % (3-9); Neutrophils Percent Manual 70 % (46-73); Total Cells Counted 100
[2022-05-23 08:33] LABS: Anisocytosis 1+ (NORMAL); Ovalocytes 1+ (NORMAL); Platelet Estimate Decreased (Adequate); Poikilocytosis 1+ (NORMAL); Schistocytes None Seen (NORMAL)
[2022-05-23 09:09] VITALS: BP 134/65; PULSE 71; RESP 20; TEMP 36.2; O2SAT 100
[2022-05-23] MEDS: PALONOSETRON HCL 0.25 MG/5 ML VIAL IV PUSH (09:27)
[2022-05-23] MEDS: diphenhydrAMINE HCl INJ 50 MG/ML VIAL 25 MG IV PUSH (09:28)
[2022-05-23] MEDS: FAMOTIDINE 20 MG/2 ML VIAL IV PUSH (09:28)
[2022-05-23] MEDS: EPOETIN ALFA-EPBX 10,000 UNITS/ML VIAL 20000 UNITS SUB-Q (09:34)
[2022-05-23 10:26] LABS: Alanine Aminotransferase 26 U/L (6-50); Albumin Level 3.7 g/dL (3.5-5.1); Alkaline Phosphatase 178 U/L (38-126); Anion Gap 8 mmol/L (8-16); Aspartate Amino Transferase 25 U/L (17-59); Bilirubin,Total 0.4 mg/dL (0.2-1.3); Blood Urea Nitrogen 17 mg/dL (9-20); Calcium 8.6 mg/dL (8.4-10.2); Carbon Dioxide 22 mmol/L (22-30); Chloride 111 mmol/L (98-107); Estimated CRCL calculation 50 ml/min; Estimated Glomerular Filt Rate > 60; Glucose 161 mg/dL (65-110); Potassium 3.7 mmol/L (3.4-5.0); Sodium 141 mmol/L (137-145)
[2022-05-23] MEDS: ATROPINE SULFATE 1 MG/ML VIAL 0.25 MG SUB-Q (12:39)
[2022-05-23 15:00] VITALS: BP 140/56
--- NOTE | 2022-05-25 13:12 | PC.NURSE ---
Patient here for pump disconnect.
[2022-05-25 13:13] VITALS: BP 133/66; PULSE 74; TEMP 36.5; O2SAT 98
[2022-05-25] MEDS: HEPARIN SODIUM LOCK FLUSH 500 UNITS/5 ML SYRINGE IV PUSH (13:19)
[2022-06-06 08:43] VITALS: BP 131/50; PULSE 70; RESP 20; TEMP 36.2; O2SAT 100
[2022-06-06 08:50] LABS: Basophils Percent Auto 0.3 % (0.2-1.2); Eosinophils Absolute Auto 0.1 K/mm3 (0-0.3); Eosinophils Percent Auto 3.1 % (0-4.4); Hematocrit 25.8 % (42.0-52.0); Hemoglobin 8.7 g/dL (14.0-18.0); Immature Granulocyte Absolute 0.01 K/mm3 (0.00-0.031); Immature Granulocyte Percent A 0.3 % (0-0.5); Lymphocytes Absolute Auto 0.78 K/mm3 (0.9-3.2); Lymphocytes Percent Auto 24.4 % (18.3-44.2); Mean Corpuscular HGB Conc 33.7 g/dl (32-36); Mean Corpuscular Hemoglobin 29.6 pg (26-34); Mean Corpuscular Volume 87.8 fl (80-100); Monocytes Absolute Auto 0.5 K/mm3 (0.1-0.6); Monocytes Percent Auto 15.9 % (2.6-8.5); Neutrophils Absolute Auto 1.8 K/mm3 (1.3-6.7); Platelet Count Result 106 k/mm3 (150-375); Red Blood Count 2.94 M/mm3 (4.6-6.20); Red Cell Distribution Width 16.6 % (11.5-14.5); White Blood Count 3.2 K/mm3 (4.5-10.0)
[2022-06-06 08:56] LABS: Blood Urea Nitrogen 19 mg/dL (8-26); Carbon Dioxide 19 mmol/L (22-30); Chloride 110 mmol/L (98-109); Estimated CRCL calculation 40 ml/min; Estimated Glomerular Filt Rate 49; Glucose 133 mg/dL (70-105); Ionized Calcium (POC) 1.21 mmol/L (1.11-1.31); Potassium 3.6 mmol/L (3.5-4.9); Sodium 140 mmol/L (138-146)
[2022-06-06] MEDS: FAMOTIDINE 20 MG/2 ML VIAL IV PUSH (09:59)
[2022-06-06] MEDS: PALONOSETRON HCL 0.25 MG/5 ML VIAL IV PUSH (09:59)
[2022-06-06] MEDS: diphenhydrAMINE HCl INJ 50 MG/ML VIAL 25 MG IV PUSH (09:59)
[2022-06-06] MEDS: EPOETIN ALFA-EPBX 10,000 UNITS/ML VIAL 20000 UNITS SUB-Q (10:04)
[2022-06-06 10:28] LABS: Alanine Aminotransferase 24 U/L (6-50); Albumin Level 3.6 g/dL (3.5-5.1); Alkaline Phosphatase 152 U/L (38-126); Anion Gap 6 mmol/L (8-16); Aspartate Amino Transferase 23 U/L (17-59); Bilirubin,Total 0.5 mg/dL (0.2-1.3); Blood Urea Nitrogen 18 mg/dL (9-20); Calcium 8.5 mg/dL (8.4-10.2); Carbon Dioxide 20 mmol/L (22-30); Chloride 112 mmol/L (98-107); Estimated CRCL calculation 46 ml/min; Estimated Glomerular Filt Rate 58; Glucose 130 mg/dL (65-110); Potassium 3.7 mmol/L (3.4-5.0); Sodium 138 mmol/L (137-145)
[2022-06-06] MEDS: ATROPINE SULFATE 1 MG/ML VIAL 0.25 MG SUB-Q (12:51)
[2022-06-06 15:38] VITALS: BP 139/63
--- NOTE | 2022-06-08 13:28 | PC.NURSE ---
Patient here for a pump disconnect.
[2022-06-08] MEDS: HEPARIN SODIUM LOCK FLUSH 500 UNITS/5 ML SYRINGE IV PUSH (13:30)
[2022-06-08 14:16] VITALS: BP 119/77; PULSE 81; RESP 16; TEMP 36; O2SAT 99
[2022-06-09] MEDS: PEGFILGRASTIM-JMDB 6 MG/0.6 ML SYRINGE SUB-Q (13:38)
[2022-06-09 13:40] VITALS: BP 126/63; PULSE 68; RESP 16; TEMP 36.5; O2SAT 100
[2022-06-10 04:44] LABS: CA 19-9 3122 U/mL (<34)
[2022-06-20 08:29] LABS: Hematocrit 28.4 % (42.0-52.0); Hemoglobin 9.4 g/dL (14.0-18.0); Mean Corpuscular HGB Conc 33.1 g/dl (32-36); Mean Corpuscular Hemoglobin 29.7 pg (26-34); Mean Corpuscular Volume 89.9 fl (80-100); Mean Platelet Volume 10.8 fl (7.4-10.4); Platelet Count Result 102 k/mm3 (150-375); Red Blood Count 3.16 M/mm3 (4.6-6.20); Red Cell Distribution Width 18.1 % (11.5-14.5); White Blood Count 14.6 K/mm3 (4.5-10.0)
[2022-06-20 08:34] LABS: Blood Urea Nitrogen 16 mg/dL (8-26); Carbon Dioxide 22 mmol/L (22-30); Chloride 109 mmol/L (98-109); Estimated CRCL calculation 43 ml/min; Estimated Glomerular Filt Rate 53; Glucose 150 mg/dL (70-105); Ionized Calcium (POC) 1.24 mmol/L (1.11-1.31); Potassium 3.6 mmol/L (3.5-4.9); Sodium 142 mmol/L (138-146)
[2022-06-20 08:39] LABS: Anisocytosis 1+ (NORMAL); Band Neutrophils Percent 9 % (0-6); Metamyelocytes Percent 2 %; Monocytes Absolute Manual 0.87 K/mm3 (0.1-0.90); Monocytes Percent Manual 6 % (3-9); Neutrophils Absolute Manual 11.82 K/mm3 (1.3-6.7); Neutrophils Percent Manual 72 % (46-73); Ovalocytes 1+ (NORMAL); Platelet Estimate Decreased (Adequate); Poikilocytosis 1+ (NORMAL); Schistocytes None Seen (NORMAL); Total Cells Counted 100
[2022-06-20 09:09] VITALS: BP 131/58; PULSE 64; RESP 18; TEMP 36.2; O2SAT 100
[2022-06-20] MEDS: FAMOTIDINE 20 MG/2 ML VIAL IV PUSH (09:33)
[2022-06-20] MEDS: PALONOSETRON HCL 0.25 MG/5 ML VIAL IV PUSH (09:33)
[2022-06-20] MEDS: diphenhydrAMINE HCl INJ 50 MG/ML VIAL 25 MG IV PUSH (09:35)
[2022-06-20] MEDS: EPOETIN ALFA-EPBX 10,000 UNITS/ML VIAL 20000 UNITS SUB-Q (09:40)
[2022-06-20 11:08] LABS: Alanine Aminotransferase 27 U/L (6-50); Albumin Level 3.7 g/dL (3.5-5.1); Alkaline Phosphatase 177 U/L (38-126); Anion Gap 9 mmol/L (8-16); Aspartate Amino Transferase 29 U/L (17-59); Bilirubin,Total 0.4 mg/dL (0.2-1.3); Blood Urea Nitrogen 17 mg/dL (9-20); Calcium 8.5 mg/dL (8.4-10.2); Carbon Dioxide 21 mmol/L (22-30); Chloride 110 mmol/L (98-107); Estimated CRCL calculation 50 ml/min; Estimated Glomerular Filt Rate > 60; Glucose 144 mg/dL (65-110); Potassium 3.6 mmol/L (3.4-5.0); Sodium 140 mmol/L (137-145)
[2022-06-20] MEDS: ATROPINE SULFATE 1 MG/ML VIAL 0.25 MG SUB-Q (12:33)
--- NOTE | 2022-06-20 14:40 | PHAR ---
Booker stimulating factor was held due to absolute neutrophil count over 8,000 per standing order. Anc over 11.
[2022-06-20 14:57] VITALS: BP 148/68
--- NOTE | 2022-06-22 13:06 | PC.NURSE ---
Patient here for pump disconnect.
[2022-06-22 13:08] VITALS: BP 129/62; PULSE 70; O2SAT 100
[2022-06-22] MEDS: HEPARIN SODIUM LOCK FLUSH 500 UNITS/5 ML SYRINGE (13:30)
[2022-07-04 08:55] LABS: Basophils Percent Auto 0.6 % (0.2-1.2); Eosinophils Absolute Auto 0.1 K/mm3 (0-0.3); Eosinophils Percent Auto 3.1 % (0-4.4); Hematocrit 26.4 % (42.0-52.0); Hemoglobin 8.5 g/dL (14.0-18.0); Immature Granulocyte Absolute 0.01 K/mm3 (0.00-0.031); Immature Granulocyte Percent A 0.3 % (0-0.5); Lymphocytes Absolute Auto 0.77 K/mm3 (0.9-3.2); Lymphocytes Percent Auto 24.2 % (18.3-44.2); Mean Corpuscular HGB Conc 32.2 g/dl (32-36); Mean Corpuscular Hemoglobin 29.6 pg (26-34); Mean Platelet Volume 10.3 fl (7.4-10.4); Monocytes Absolute Auto 0.5 K/mm3 (0.1-0.6); Neutrophils Absolute Auto 1.8 K/mm3 (1.3-6.7); Neutrophils Percent Auto 55.8 % (45.5-73.1); Platelet Count Result 90 k/mm3 (150-375); Red Blood Count 2.87 M/mm3 (4.6-6.20); Red Cell Distribution Width 18.3 % (11.5-14.5); White Blood Count 3.2 K/mm3 (4.5-10.0)
[2022-07-04 09:00] LABS: Blood Urea Nitrogen 18 mg/dL (8-26); Carbon Dioxide 21 mmol/L (22-30); Chloride 109 mmol/L (98-109); Estimated CRCL calculation 46 ml/min; Estimated Glomerular Filt Rate 58; Glucose 121 mg/dL (70-105); Ionized Calcium (POC) 1.24 mmol/L (1.11-1.31); Potassium 3.6 mmol/L (3.5-4.9); Sodium 142 mmol/L (138-146)
[2022-07-04 09:16] VITALS: BP 140/65; PULSE 59; RESP 16; TEMP 36.1; O2SAT 100
[2022-07-04] MEDS: EPOETIN ALFA-EPBX 20,000 UNITS/ML VIAL 20000 UNITS SUB-Q (09:32)
[2022-07-04 09:34] LABS: Alanine Aminotransferase 23 U/L (6-50); Albumin Level 3.7 g/dL (3.5-5.1); Alkaline Phosphatase 124 U/L (38-126); Anion Gap 8 mmol/L (8-16); Aspartate Amino Transferase 29 U/L (17-59); Bilirubin,Total 0.5 mg/dL (0.2-1.3); Blood Urea Nitrogen 18 mg/dL (9-20); Calcium 8.4 mg/dL (8.4-10.2); Carbon Dioxide 22 mmol/L (22-30); Chloride 110 mmol/L (98-107); Estimated CRCL calculation 50 ml/min; Estimated Glomerular Filt Rate > 60; Glucose 119 mg/dL (65-110); Potassium 3.6 mmol/L (3.4-5.0); Sodium 140 mmol/L (137-145)
[2022-07-04] MEDS: HEPARIN SODIUM LOCK FLUSH 500 UNITS/5 ML SYRINGE (09:38)
[2022-07-10 08:47] LABS: Basophils Percent Auto 0.7 % (0.2-1.2); Eosinophils Absolute Auto 0.3 K/mm3 (0-0.3); Eosinophils Percent Auto 6.8 % (0-4.4); Hematocrit 30.8 % (42.0-52.0); Hemoglobin 9.9 g/dL (14.0-18.0); Immature Granulocyte Absolute 0.02 K/mm3 (0.00-0.031); Immature Granulocyte Percent A 0.4 % (0-0.5); Lymphocytes Absolute Auto 0.91 K/mm3 (0.9-3.2); Lymphocytes Percent Auto 19.8 % (18.3-44.2); Mean Corpuscular HGB Conc 32.1 g/dl (32-36); Mean Corpuscular Hemoglobin 29.9 pg (26-34); Mean Corpuscular Volume 93.1 fl (80-100); Mean Platelet Volume 9.8 fl (7.4-10.4); Monocytes Absolute Auto 0.9 K/mm3 (0.1-0.6); Monocytes Percent Auto 20.5 % (2.6-8.5); Neutrophils Absolute Auto 2.4 K/mm3 (1.3-6.7); Neutrophils Percent Auto 51.8 % (45.5-73.1); Platelet Count Result 184 k/mm3 (150-375); Red Blood Count 3.31 M/mm3 (4.6-6.20); Red Cell Distribution Width 19.1 % (11.5-14.5); White Blood Count 4.6 K/mm3 (4.5-10.0)
[2022-07-10 08:50] LABS: Blood Urea Nitrogen 18 mg/dL (8-26); Carbon Dioxide 24 mmol/L (22-30); Chloride 106 mmol/L (98-109); Estimated CRCL calculation 38 ml/min; Estimated Glomerular Filt Rate 45; Glucose 148 mg/dL (70-105); Ionized Calcium (POC) 1.14 mmol/L (1.11-1.31); Sodium 141 mmol/L (138-146)
[2022-07-10 08:53] VITALS: BP 140/65; PULSE 70; TEMP 36.6; O2SAT 99
[2022-07-10] MEDS: PALONOSETRON HCL 0.25 MG/5 ML VIAL IV PUSH (09:16)
[2022-07-10] MEDS: diphenhydrAMINE HCl INJ 50 MG/ML VIAL 25 MG IV PUSH (09:16)
[2022-07-10] MEDS: FAMOTIDINE 20 MG/2 ML VIAL IV PUSH (09:16)
[2022-07-10 09:59] LABS: Alanine Aminotransferase 24 U/L (6-50); Albumin Level 3.9 g/dL (3.5-5.1); Alkaline Phosphatase 146 U/L (38-126); Anion Gap 7 mmol/L (8-16); Aspartate Amino Transferase 27 U/L (17-59); Bilirubin,Total 0.5 mg/dL (0.2-1.3); Blood Urea Nitrogen 18 mg/dL (9-20); Calcium 8.6 mg/dL (8.4-10.2); Carbon Dioxide 26 mmol/L (22-30); Chloride 105 mmol/L (98-107); Estimated CRCL calculation 43 ml/min; Estimated Glomerular Filt Rate 53; Glucose 146 mg/dL (65-110); Sodium 138 mmol/L (137-145)
[2022-07-10] MEDS: ATROPINE SULFATE 1 MG/ML VIAL 0.25 MG SUB-Q (12:20)
--- NOTE | 2022-07-12 12:50 | PC.NURSE ---
Patient here for pump disconnect.
[2022-07-12 12:53] VITALS: BP 121/59; PULSE 63; TEMP 36.3; O2SAT 99
[2022-07-12] MEDS: HEPARIN SODIUM LOCK FLUSH 500 UNITS/5 ML SYRINGE IV PUSH (12:57)
[2022-07-13 13:03] VITALS: BP 122/60; PULSE 72; TEMP 36.5; O2SAT 99
[2022-07-13] MEDS: PEGFILGRASTIM-JMDB 6 MG/0.6 ML SYRINGE SUB-Q (13:10)
[2022-07-18 14:08] LABS: Hematocrit 31.2 % (42.0-52.0); Hemoglobin 10.3 g/dL (14.0-18.0); Mean Corpuscular Hemoglobin 30.8 pg (26-34); Mean Corpuscular Volume 93.4 fl (80-100); Mean Platelet Volume 9.9 fl (7.4-10.4); Platelet Count Result 112 k/mm3 (150-375); Red Blood Count 3.34 M/mm3 (4.6-6.20); Red Cell Distribution Width 17.9 % (11.5-14.5); White Blood Count 25.5 K/mm3 (4.5-10.0)
[2022-07-18 14:14] LABS: Atypical Lymphocytes Present; Band Neutrophils Percent 9 % (0-6); Lymphocytes Absolute Manual 3.06 K/mm3 (1.1-4.5); Metamyelocytes Percent 1 %; Monocytes Absolute Manual 1.27 K/mm3 (0.1-0.90); Monocytes Percent Manual 5 % (3-9); Neutrophils Absolute Manual 20.91 K/mm3 (1.3-6.7); Neutrophils Percent Manual 73 % (46-73); Platelet Estimate Decreased (Adequate); Schistocytes None Seen (NORMAL); Total Cells Counted 100
[2022-07-18 14:15] LABS: Ovalocytes 1+ (NORMAL); Poikilocytosis 1+ (NORMAL)
--- NOTE | 2022-07-18 14:25 | PC.NURSE ---
Patient does not need injection, hemoglobulin 10.3
[2022-07-25 08:30] LABS: Basophils Percent Auto 0.2 % (0.2-1.2); Eosinophils Absolute Auto 0.3 K/mm3 (0-0.3); Eosinophils Percent Auto 3.1 % (0-4.4); Hematocrit 31.2 % (42.0-52.0); Hemoglobin 10.2 g/dL (14.0-18.0); Immature Granulocyte Absolute 0.16 K/mm3 (0.00-0.031); Immature Granulocyte Percent A 1.5 % (0-0.5); Lymphocytes Absolute Auto 1.14 K/mm3 (0.9-3.2); Lymphocytes Percent Auto 10.8 % (18.3-44.2); Mean Corpuscular HGB Conc 32.7 g/dl (32-36); Mean Corpuscular Hemoglobin 30.2 pg (26-34); Mean Corpuscular Volume 92.3 fl (80-100); Mean Platelet Volume 10.6 fl (7.4-10.4); Monocytes Absolute Auto 0.6 K/mm3 (0.1-0.6); Monocytes Percent Auto 6.1 % (2.6-8.5); Neutrophils Absolute Auto 8.2 K/mm3 (1.3-6.7); Neutrophils Percent Auto 78.3 % (45.5-73.1); Platelet Count Result 109 k/mm3 (150-375); Red Blood Count 3.38 M/mm3 (4.6-6.20); Red Cell Distribution Width 17.6 % (11.5-14.5); White Blood Count 10.5 K/mm3 (4.5-10.0)
[2022-07-25 08:37] LABS: Blood Urea Nitrogen 18 mg/dL (8-26); Carbon Dioxide 23 mmol/L (22-30); Chloride 107 mmol/L (98-109); Estimated CRCL calculation 43 ml/min; Estimated Glomerular Filt Rate 53; Glucose 201 mg/dL (70-105); Ionized Calcium (POC) 1.13 mmol/L (1.11-1.31); Potassium 3.8 mmol/L (3.5-4.9); Sodium 142 mmol/L (138-146)
[2022-07-25 09:13] VITALS: BP 152/68; PULSE 65; RESP 16; TEMP 36.1; O2SAT 100
[2022-07-25] MEDS: PALONOSETRON HCL 0.25 MG/5 ML VIAL IV PUSH (09:30)
[2022-07-25] MEDS: FAMOTIDINE 20 MG/2 ML VIAL IV PUSH (09:32)
[2022-07-25] MEDS: diphenhydrAMINE HCl INJ 50 MG/ML VIAL 25 MG IV PUSH (09:35)
--- NOTE | 2022-07-25 10:05 | PHAR ---
Gamaliel stimulating factor was held due to absolute neutrophil count over 8,000 per standing order.
[2022-07-25 10:28] LABS: Alanine Aminotransferase 28 U/L (6-50); Albumin Level 3.7 g/dL (3.5-5.1); Alkaline Phosphatase 177 U/L (38-126); Anion Gap 9 mmol/L (8-16); Aspartate Amino Transferase 27 U/L (17-59); Bilirubin,Total 0.4 mg/dL (0.2-1.3); Blood Urea Nitrogen 18 mg/dL (9-20); Calcium 8.4 mg/dL (8.4-10.2); Carbon Dioxide 24 mmol/L (22-30); Chloride 108 mmol/L (98-107); Estimated CRCL calculation 55 ml/min; Estimated Glomerular Filt Rate > 60; Glucose 190 mg/dL (65-110); Potassium 3.8 mmol/L (3.4-5.0); Sodium 141 mmol/L (137-145)
[2022-07-25] MEDS: ATROPINE SULFATE 1 MG/ML VIAL 0.25 MG SUB-Q (12:37)
[2022-07-25 15:02] VITALS: BP 154/71
[2022-07-27 13:10] VITALS: BP 129/57; PULSE 73; TEMP 36.5; O2SAT 96
[2022-07-27] MEDS: HEPARIN SODIUM LOCK FLUSH 500 UNITS/5 ML SYRINGE IV PUSH (13:12)
[2022-08-07 09:16] LABS: Basophils Percent Auto 0.3 % (0.2-1.2); Eosinophils Absolute Auto 0.1 K/mm3 (0-0.3); Eosinophils Percent Auto 3.7 % (0-4.4); Hematocrit 29.1 % (42.0-52.0); Hemoglobin 9.4 g/dL (14.0-18.0); Lymphocytes Absolute Auto 0.63 K/mm3 (0.9-3.2); Lymphocytes Percent Auto 16.7 % (18.3-44.2); Mean Corpuscular HGB Conc 32.3 g/dl (32-36); Mean Corpuscular Hemoglobin 30.4 pg (26-34); Mean Corpuscular Volume 94.2 fl (80-100); Monocytes Absolute Auto 0.5 K/mm3 (0.1-0.6); Monocytes Percent Auto 12.2 % (2.6-8.5); Neutrophils Absolute Auto 2.5 K/mm3 (1.3-6.7); Neutrophils Percent Auto 67.1 % (45.5-73.1); Platelet Count Result 113 k/mm3 (150-375); Red Blood Count 3.09 M/mm3 (4.6-6.20); Red Cell Distribution Width 17.2 % (11.5-14.5); White Blood Count 3.8 K/mm3 (4.5-10.0)
[2022-08-07 09:20] LABS: Blood Urea Nitrogen 24 mg/dL (8-26); Carbon Dioxide 20 mmol/L (22-30); Chloride 110 mmol/L (98-109); Estimated CRCL calculation 40 ml/min; Estimated Glomerular Filt Rate 49; Glucose 150 mg/dL (70-105); Ionized Calcium (POC) 1.17 mmol/L (1.11-1.31); Potassium 4.2 mmol/L (3.5-4.9); Sodium 141 mmol/L (138-146)
[2022-08-07 09:34] VITALS: BP 120/54; PULSE 66; TEMP 36.5; O2SAT 100
[2022-08-07] MEDS: diphenhydrAMINE HCl INJ 50 MG/ML VIAL 25 MG IV PUSH (09:57)
[2022-08-07] MEDS: PALONOSETRON HCL 0.25 MG/5 ML VIAL IV PUSH (09:57)
[2022-08-07] MEDS: FAMOTIDINE 20 MG/2 ML VIAL IV PUSH (09:57)
[2022-08-07] MEDS: EPOETIN ALFA-EPBX 20,000 UNITS/ML VIAL 20000 UNITS SUB-Q (09:58)
[2022-08-07 11:21] LABS: Alanine Aminotransferase 27 U/L (6-50); Albumin Level 3.7 g/dL (3.5-5.1); Alkaline Phosphatase 130 U/L (38-126); Anion Gap 7 mmol/L (8-16); Aspartate Amino Transferase 28 U/L (17-59); Bilirubin,Total 0.3 mg/dL (0.2-1.3); Blood Urea Nitrogen 24 mg/dL (9-20); Calcium 8.5 mg/dL (8.4-10.2); Carbon Dioxide 22 mmol/L (22-30); Chloride 110 mmol/L (98-107); Estimated CRCL calculation 46 ml/min; Estimated Glomerular Filt Rate 58; Glucose 147 mg/dL (65-110); Potassium 4.1 mmol/L (3.4-5.0); Sodium 139 mmol/L (137-145)
[2022-08-07] MEDS: ATROPINE SULFATE 1 MG/ML VIAL 0.25 MG SUB-Q (12:51)
[2022-08-07 15:16] VITALS: BP 131/60
[2022-08-09 13:56] VITALS: BP 141/72; PULSE 68; RESP 16; TEMP 36.8; O2SAT 99
[2022-08-09] MEDS: HEPARIN SODIUM LOCK FLUSH 500 UNITS/5 ML SYRINGE IV PUSH (14:03)
--- NOTE | 2022-08-09 14:52 | PC.NURSE ---
Patient here for pump disconnect.
[2022-08-10 12:15] VITALS: BP 125/62; PULSE 71; RESP 18; TEMP 36.6; O2SAT 98
[2022-08-10] MEDS: PEGFILGRASTIM-JMDB 6 MG/0.6 ML SYRINGE SUB-Q (12:27)
[2022-08-29 09:01] LABS: Basophils Percent Auto 0.5 % (0.2-1.2); Eosinophils Absolute Auto 0.2 K/mm3 (0-0.3); Eosinophils Percent Auto 2.1 % (0-4.4); Hematocrit 32.3 % (42.0-52.0); Hemoglobin 10.7 g/dL (14.0-18.0); Immature Granulocyte Absolute 0.03 K/mm3 (0.00-0.031); Immature Granulocyte Percent A 0.4 % (0-0.5); Lymphocytes Absolute Auto 0.97 K/mm3 (0.9-3.2); Lymphocytes Percent Auto 12.9 % (18.3-44.2); Mean Corpuscular HGB Conc 33.1 g/dl (32-36); Mean Corpuscular Hemoglobin 31.3 pg (26-34); Mean Corpuscular Volume 94.4 fl (80-100); Mean Platelet Volume 9.2 fl (7.4-10.4); Monocytes Absolute Auto 0.8 K/mm3 (0.1-0.6); Monocytes Percent Auto 10.9 % (2.6-8.5); Neutrophils Absolute Auto 5.5 K/mm3 (1.3-6.7); Neutrophils Percent Auto 73.2 % (45.5-73.1); Platelet Count Result 132 k/mm3 (150-375); Red Blood Count 3.42 M/mm3 (4.6-6.20); Red Cell Distribution Width 16.9 % (11.5-14.5); White Blood Count 7.5 K/mm3 (4.5-10.0)
[2022-08-29 09:05] LABS: Blood Urea Nitrogen 25 mg/dL (8-26); Carbon Dioxide 22 mmol/L (22-30); Chloride 106 mmol/L (98-109); Estimated CRCL calculation 46 ml/min; Estimated Glomerular Filt Rate 58; Glucose 121 mg/dL (70-105); Ionized Calcium (POC) 1.24 mmol/L (1.11-1.31); Potassium 4.3 mmol/L (3.5-4.9); Sodium 141 mmol/L (138-146)
[2022-08-29 09:46] VITALS: BP 133/60; PULSE 60; TEMP 36.6; O2SAT 100
[2022-08-29] MEDS: FAMOTIDINE 20 MG/2 ML VIAL IV PUSH (10:02)
[2022-08-29] MEDS: PALONOSETRON HCL 0.25 MG/5 ML VIAL IV PUSH (10:02)
[2022-08-29] MEDS: diphenhydrAMINE HCl INJ 50 MG/ML VIAL 25 MG IV PUSH (10:02)
[2022-08-29 12:32] LABS: Alanine Aminotransferase 26 U/L (6-50); Alkaline Phosphatase 131 U/L (38-126); Anion Gap 7 mmol/L (8-16); Aspartate Amino Transferase 26 U/L (17-59); Bilirubin,Total 0.3 mg/dL (0.2-1.3); Blood Urea Nitrogen 24 mg/dL (9-20); Calcium 8.7 mg/dL (8.4-10.2); Carbon Dioxide 27 mmol/L (22-30); Chloride 105 mmol/L (98-107); Estimated CRCL calculation 50 ml/min; Estimated Glomerular Filt Rate > 60; Glucose 117 mg/dL (65-110); Potassium 4.4 mmol/L (3.4-5.0); Sodium 139 mmol/L (137-145)
[2022-08-29] MEDS: ATROPINE SULFATE 1 MG/ML VIAL 0.25 MG SUB-Q (12:49)
[2022-08-29 15:03] VITALS: BP 135/62
[2022-08-31 13:37] VITALS: PULSE 71; TEMP 36.6; O2SAT 98
--- NOTE | 2022-08-31 13:37 | PC.NURSE ---
Patient here for pump disconnect.
[2022-08-31] MEDS: HEPARIN SODIUM LOCK FLUSH 500 UNITS/5 ML SYRINGE IV PUSH (13:41)
--- NOTE | 2022-08-31 15:01 | PHAR ---
Seminary stimulating factor was held due to absolute neutrophil count between 5,000 and 8,000 per verbal order from doctor. ANC 5.5, hold per
[2022-09-12 09:02] LABS: Basophils Percent Auto 0.2 % (0.2-1.2); Eosinophils Absolute Auto 0.1 K/mm3 (0-0.3); Eosinophils Percent Auto 2.7 % (0-4.4); Hematocrit 31.1 % (42.0-52.0); Hemoglobin 10.4 g/dL (14.0-18.0); Immature Granulocyte Absolute 0.01 K/mm3 (0.00-0.031); Immature Granulocyte Percent A 0.2 % (0-0.5); Lymphocytes Absolute Auto 0.89 K/mm3 (0.9-3.2); Lymphocytes Percent Auto 17.3 % (18.3-44.2); Mean Corpuscular HGB Conc 33.4 g/dl (32-36); Mean Corpuscular Hemoglobin 31.8 pg (26-34); Mean Corpuscular Volume 95.1 fl (80-100); Mean Platelet Volume 9.9 fl (7.4-10.4); Monocytes Absolute Auto 0.6 K/mm3 (0.1-0.6); Monocytes Percent Auto 11.9 % (2.6-8.5); Neutrophils Absolute Auto 3.5 K/mm3 (1.3-6.7); Neutrophils Percent Auto 67.7 % (45.5-73.1); Platelet Count Result 106 k/mm3 (150-375); Red Blood Count 3.27 M/mm3 (4.6-6.20); Red Cell Distribution Width 15.3 % (11.5-14.5); White Blood Count 5.1 K/mm3 (4.5-10.0)
--- NOTE | 2022-09-12 09:07 | PC.NURSE ---
No Retacrit injection needed, patient's hemoglobulin 10.4.
[2022-09-26 11:45] LABS: Basophils Percent Auto 0.5 % (0.2-1.2); Eosinophils Absolute Auto 0.1 K/mm3 (0-0.3); Hematocrit 33.7 % (42.0-52.0); Hemoglobin 11.1 g/dL (14.0-18.0); Immature Granulocyte Absolute 0.02 K/mm3 (0.00-0.031); Immature Granulocyte Percent A 0.3 % (0-0.5); Lymphocytes Absolute Auto 1.19 K/mm3 (0.9-3.2); Lymphocytes Percent Auto 18.1 % (18.3-44.2); Mean Corpuscular HGB Conc 32.9 g/dl (32-36); Mean Corpuscular Volume 94.1 fl (80-100); Mean Platelet Volume 9.2 fl (7.4-10.4); Monocytes Absolute Auto 0.7 K/mm3 (0.1-0.6); Monocytes Percent Auto 9.9 % (2.6-8.5); Neutrophils Absolute Auto 4.6 K/mm3 (1.3-6.7); Neutrophils Percent Auto 69.2 % (45.5-73.1); Platelet Count Result 113 k/mm3 (150-375); Red Blood Count 3.58 M/mm3 (4.6-6.20); Red Cell Distribution Width 14.6 % (11.5-14.5); White Blood Count 6.6 K/mm3 (4.5-10.0)
[2022-09-26 11:50] LABS: Blood Urea Nitrogen 27 mg/dL (8-26); Carbon Dioxide 25 mmol/L (22-30); Chloride 102 mmol/L (98-109); Estimated CRCL calculation 37 ml/min; Estimated Glomerular Filt Rate 45; Glucose 183 mg/dL (70-105); Ionized Calcium (POC) 1.24 mmol/L (1.11-1.31); Potassium 4.8 mmol/L (3.5-4.9); Sodium 138 mmol/L (138-146)
--- NOTE | 2022-09-26 11:57 | PC.NURSE ---
Patient's appointment canceled, hemoglobulin 11.1.
[2022-09-26 12:42] LABS: Alanine Aminotransferase 29 U/L (6-50); Albumin Level 4.3 g/dL (3.5-5.1); Alkaline Phosphatase 132 U/L (38-126); Anion Gap 8 mmol/L (8-16); Aspartate Amino Transferase 28 U/L (17-59); Bilirubin,Total 0.4 mg/dL (0.2-1.3); Blood Urea Nitrogen 27 mg/dL (9-20); Calcium 8.9 mg/dL (8.4-10.2); Carbon Dioxide 26 mmol/L (22-30); Chloride 102 mmol/L (98-107); Estimated CRCL calculation 46 ml/min; Estimated Glomerular Filt Rate 58; Glucose 181 mg/dL (65-110); Potassium 4.8 mmol/L (3.4-5.0); Sodium 136 mmol/L (137-145)
[2022-09-29 06:23] LABS: CA 19-9 855 U/mL (<34)
[2022-10-10 08:41] VITALS: BP 143/78; PULSE 80; TEMP 36.6; O2SAT 99
[2022-10-10 08:55] LABS: Basophils Percent Auto 0.3 % (0.2-1.2); Eosinophils Absolute Auto 0.2 K/mm3 (0-0.3); Eosinophils Percent Auto 3.1 % (0-4.4); Hematocrit 33.5 % (42.0-52.0); Hemoglobin 11.4 g/dL (14.0-18.0); Immature Granulocyte Absolute 0.02 K/mm3 (0.00-0.031); Immature Granulocyte Percent A 0.3 % (0-0.5); Lymphocytes Absolute Auto 0.89 K/mm3 (0.9-3.2); Lymphocytes Percent Auto 14.3 % (18.3-44.2); Mean Corpuscular Hemoglobin 31.1 pg (26-34); Mean Corpuscular Volume 91.3 fl (80-100); Mean Platelet Volume 9.5 fl (7.4-10.4); Monocytes Absolute Auto 0.5 K/mm3 (0.1-0.6); Monocytes Percent Auto 8.1 % (2.6-8.5); Neutrophils Absolute Auto 4.6 K/mm3 (1.3-6.7); Neutrophils Percent Auto 73.9 % (45.5-73.1); Platelet Count Result 141 k/mm3 (150-375); Red Blood Count 3.67 M/mm3 (4.6-6.20); Red Cell Distribution Width 13.2 % (11.5-14.5); White Blood Count 6.2 K/mm3 (4.5-10.0)
[2022-10-10 08:59] LABS: Blood Urea Nitrogen 23 mg/dL (8-26); Carbon Dioxide 21 mmol/L (22-30); Chloride 104 mmol/L (98-109); Estimated CRCL calculation 46 ml/min; Estimated Glomerular Filt Rate 58; Glucose 251 mg/dL (70-105); Ionized Calcium (POC) 1.19 mmol/L (1.11-1.31); Potassium 4.2 mmol/L (3.5-4.9); Sodium 137 mmol/L (138-146)
[2022-10-10] MEDS: PALONOSETRON HCL 0.25 MG/5 ML VIAL IV PUSH (09:18)
[2022-10-10] MEDS: ATROPINE SULFATE 1 MG/ML VIAL 0.25 MG SUB-Q (09:19)
[2022-10-10 09:41] LABS: Alanine Aminotransferase 30 U/L (6-50); Albumin Level 4.1 g/dL (3.5-5.1); Alkaline Phosphatase 161 U/L (38-126); Anion Gap 12 mmol/L (8-16); Aspartate Amino Transferase 27 U/L (17-59); Bilirubin,Total 0.3 mg/dL (0.2-1.3); Blood Urea Nitrogen 23 mg/dL (9-20); Calcium 8.9 mg/dL (8.4-10.2); Carbon Dioxide 21 mmol/L (22-30); Chloride 103 mmol/L (98-107); Estimated CRCL calculation 50 ml/min; Estimated Glomerular Filt Rate > 60; Glucose 239 mg/dL (65-110); Potassium 4.2 mmol/L (3.4-5.0); Sodium 136 mmol/L (137-145)
[2022-10-10] MEDS: LEUCOVORIN CALCIUM 800 MG in SODIUM CHLORIDE 0.9% IV 210 ML 125 MG IVPB (09:59)
[2022-10-10 11:55] VITALS: BP 134/66
[2022-10-10] MEDS: FLUOROURACIL 4,800 MG in SODIUM CHLORIDE 0.9% IV 88 ML IVPB (12:03)
[2022-10-10] MEDS: FLUOROURACIL 1,000 MG/20 ML VIAL 800 MG IV PUSH (12:03)
[2022-10-12 10:11] VITALS: BP 128/62; PULSE 68; TEMP 36.4; O2SAT 100
[2022-10-12] MEDS: HEPARIN SODIUM LOCK FLUSH 500 UNITS/5 ML SYRINGE IV PUSH (10:16)
[2022-10-23 08:48] LABS: Basophils Percent Auto 0.2 % (0.2-1.2); Eosinophils Absolute Auto 0.2 K/mm3 (0-0.3); Eosinophils Percent Auto 3.4 % (0-4.4); Hematocrit 32.3 % (42.0-52.0); Hemoglobin 10.9 g/dL (14.0-18.0); Immature Granulocyte Absolute 0.01 K/mm3 (0.00-0.031); Immature Granulocyte Percent A 0.2 % (0-0.5); Lymphocytes Absolute Auto 0.81 K/mm3 (0.9-3.2); Lymphocytes Percent Auto 15.5 % (18.3-44.2); Mean Corpuscular HGB Conc 33.7 g/dl (32-36); Mean Corpuscular Hemoglobin 31.3 pg (26-34); Mean Corpuscular Volume 92.8 fl (80-100); Mean Platelet Volume 8.4 fl (7.4-10.4); Monocytes Absolute Auto 0.4 K/mm3 (0.1-0.6); Monocytes Percent Auto 7.6 % (2.6-8.5); Neutrophils Absolute Auto 3.8 K/mm3 (1.3-6.7); Neutrophils Percent Auto 73.1 % (45.5-73.1); Platelet Count Result 114 k/mm3 (150-375); Red Blood Count 3.48 M/mm3 (4.6-6.20); Red Cell Distribution Width 13.2 % (11.5-14.5); White Blood Count 5.2 K/mm3 (4.5-10.0)
[2022-10-23 08:54] LABS: Blood Urea Nitrogen 22 mg/dL (8-26); Carbon Dioxide 22 mmol/L (22-30); Chloride 105 mmol/L (98-109); Estimated CRCL calculation 42 ml/min; Estimated Glomerular Filt Rate 53; Glucose 246 mg/dL (70-105); Ionized Calcium (POC) 1.27 mmol/L (1.11-1.31); Potassium 4.4 mmol/L (3.5-4.9); Sodium 139 mmol/L (138-146)
--- NOTE | 2022-10-23 09:05 | PC.NURSE ---
Patient's treatment canceled due to hemaglobin 10.9
[2022-10-23 11:22] LABS: Alanine Aminotransferase 29 U/L (6-50); Albumin Level 3.9 g/dL (3.5-5.1); Alkaline Phosphatase 156 U/L (38-126); Anion Gap 5 mmol/L (8-16); Aspartate Amino Transferase 23 U/L (17-59); Bilirubin,Total 0.4 mg/dL (0.2-1.3); Blood Urea Nitrogen 22 mg/dL (9-20); Carbon Dioxide 22 mmol/L (22-30); Chloride 106 mmol/L (98-107); Estimated CRCL calculation 46 ml/min; Estimated Glomerular Filt Rate 58; Glucose 247 mg/dL (65-110); Potassium 4.4 mmol/L (3.4-5.0); Sodium 133 mmol/L (137-145)
--- NOTE | 2022-10-26 07:31 | PC.NURSE ---
On 10/12/22, patient was here for a pump disconnect.
[2022-10-26 08:24] LABS: CA 19-9 1831 U/mL (<34)
[2022-10-31 08:42] LABS: Basophils Percent Auto 0.7 % (0.2-1.2); Eosinophils Absolute Auto 0.2 K/mm3 (0-0.3); Eosinophils Percent Auto 3.9 % (0-4.4); Hematocrit 31.2 % (42.0-52.0); Hemoglobin 10.8 g/dL (14.0-18.0); Immature Granulocyte Absolute 0.01 K/mm3 (0.00-0.031); Immature Granulocyte Percent A 0.2 % (0-0.5); Lymphocytes Absolute Auto 0.85 K/mm3 (0.9-3.2); Lymphocytes Percent Auto 19.3 % (18.3-44.2); Mean Corpuscular HGB Conc 34.6 g/dl (32-36); Mean Corpuscular Hemoglobin 31.6 pg (26-34); Mean Corpuscular Volume 91.2 fl (80-100); Mean Platelet Volume 9.1 fl (7.4-10.4); Monocytes Absolute Auto 0.5 K/mm3 (0.1-0.6); Monocytes Percent Auto 11.8 % (2.6-8.5); Neutrophils Absolute Auto 2.8 K/mm3 (1.3-6.7); Neutrophils Percent Auto 64.1 % (45.5-73.1); Platelet Count Result 139 k/mm3 (150-375); Red Blood Count 3.42 M/mm3 (4.6-6.20); Red Cell Distribution Width 13.4 % (11.5-14.5); White Blood Count 4.4 K/mm3 (4.5-10.0)
[2022-10-31 08:48] LABS: Blood Urea Nitrogen 20 mg/dL (8-26); Carbon Dioxide 22 mmol/L (22-30); Chloride 103 mmol/L (98-109); Estimated CRCL calculation 50 ml/min; Estimated Glomerular Filt Rate > 60; Glucose 229 mg/dL (70-105); Ionized Calcium (POC) 1.24 mmol/L (1.11-1.31); Potassium 4.3 mmol/L (3.5-4.9); Sodium 137 mmol/L (138-146)
[2022-10-31 08:54] VITALS: BP 143/66; PULSE 65; RESP 18; TEMP 36.8; O2SAT 99
[2022-10-31] MEDS: PALONOSETRON HCL 0.25 MG/5 ML VIAL IV PUSH (09:10)
[2022-10-31] MEDS: ATROPINE SULFATE 1 MG/ML VIAL 0.25 MG SUB-Q (09:10)
[2022-10-31] MEDS: LEUCOVORIN CALCIUM 800 MG in SODIUM CHLORIDE 0.9% IV 210 ML 125 MG IVPB (10:00)
[2022-10-31 12:06] LABS: Alanine Aminotransferase 32 U/L (6-50); Albumin Level 3.9 g/dL (3.5-5.1); Alkaline Phosphatase 181 U/L (38-126); Anion Gap 6 mmol/L (8-16); Aspartate Amino Transferase 26 U/L (17-59); Bilirubin,Total 0.3 mg/dL (0.2-1.3); Blood Urea Nitrogen 20 mg/dL (9-20); Calcium 9.1 mg/dL (8.4-10.2); Carbon Dioxide 23 mmol/L (22-30); Chloride 104 mmol/L (98-107); Estimated CRCL calculation 50 ml/min; Estimated Glomerular Filt Rate > 60; Glucose 221 mg/dL (65-110); Potassium 4.3 mmol/L (3.4-5.0); Sodium 133 mmol/L (137-145)
[2022-10-31 12:14] VITALS: BP 152/72
[2022-10-31] MEDS: FLUOROURACIL 1,000 MG/20 ML VIAL 800 MG IV PUSH (12:23)
[2022-10-31] MEDS: FLUOROURACIL 4,800 MG in SODIUM CHLORIDE 0.9% IV 88 ML IVPB (12:24)
[2022-11-02 10:55] VITALS: BP 138/68; PULSE 72; TEMP 36.7; O2SAT 100
[2022-11-02] MEDS: HEPARIN SODIUM LOCK FLUSH 500 UNITS/5 ML SYRINGE IV PUSH (11:00)
--- NOTE | 2022-11-02 11:05 | PC.NURSE ---
Patient here for a pump disconnect.
[2022-11-21 10:52] LABS: Basophils Percent Auto 0.6 % (0.2-1.2); Eosinophils Absolute Auto 0.1 K/mm3 (0-0.3); Eosinophils Percent Auto 3.9 % (0-4.4); Hematocrit 29.8 % (42.0-52.0); Hemoglobin 10.5 g/dL (14.0-18.0); Immature Granulocyte Absolute 0.01 K/mm3 (0.00-0.031); Immature Granulocyte Percent A 0.3 % (0-0.5); Lymphocytes Absolute Auto 0.85 K/mm3 (0.9-3.2); Lymphocytes Percent Auto 23.4 % (18.3-44.2); Mean Corpuscular HGB Conc 35.2 g/dl (32-36); Mean Corpuscular Hemoglobin 32.2 pg (26-34); Mean Corpuscular Volume 91.4 fl (80-100); Mean Platelet Volume 9.4 fl (7.4-10.4); Monocytes Absolute Auto 0.7 K/mm3 (0.1-0.6); Monocytes Percent Auto 19.8 % (2.6-8.5); Neutrophils Absolute Auto 1.9 K/mm3 (1.3-6.7); Platelet Count Result 137 k/mm3 (150-375); Red Blood Count 3.26 M/mm3 (4.6-6.20); Red Cell Distribution Width 13.6 % (11.5-14.5); White Blood Count 3.6 K/mm3 (4.5-10.0)
[2022-11-21 10:55] LABS: Blood Urea Nitrogen 21 mg/dL (8-26); Carbon Dioxide 22 mmol/L (22-30); Chloride 101 mmol/L (98-109); Estimated CRCL calculation 42 ml/min; Estimated Glomerular Filt Rate 53; Glucose 293 mg/dL (70-105); Ionized Calcium (POC) 1.21 mmol/L (1.11-1.31); Potassium 4.6 mmol/L (3.5-4.9); Sodium 134 mmol/L (138-146)
[2022-11-21 10:57] VITALS: BP 124/67; PULSE 71; RESP 18; TEMP 36.7; O2SAT 100
[2022-11-21] MEDS: PALONOSETRON HCL 0.25 MG/5 ML VIAL IV PUSH (11:35)
[2022-11-21 12:05] LABS: Alanine Aminotransferase 30 U/L (6-50); Albumin Level 3.9 g/dL (3.5-5.1); Alkaline Phosphatase 199 U/L (38-126); Anion Gap 11 mmol/L (8-16); Aspartate Amino Transferase 28 U/L (17-59); Bilirubin,Total 0.4 mg/dL (0.2-1.3); Blood Urea Nitrogen 22 mg/dL (9-20); Calcium 8.9 mg/dL (8.4-10.2); Carbon Dioxide 22 mmol/L (22-30); Chloride 100 mmol/L (98-107); Estimated CRCL calculation 46 ml/min; Estimated Glomerular Filt Rate 58; Glucose 289 mg/dL (65-110); Potassium 4.7 mmol/L (3.4-5.0); Sodium 133 mmol/L (137-145)
[2022-11-21] MEDS: ATROPINE SULFATE 1 MG/ML VIAL 0.25 MG SUB-Q (12:14)
[2022-11-21] MEDS: LEUCOVORIN CALCIUM 800 MG in SODIUM CHLORIDE 0.9% IV 210 ML 125 MG IVPB (12:14)
[2022-11-21] MEDS: FLUOROURACIL 1,000 MG/20 ML VIAL 800 MG IV PUSH (14:34)
[2022-11-21] MEDS: FLUOROURACIL 4,800 MG in SODIUM CHLORIDE 0.9% IV 88 ML IVPB (14:35)
[2022-11-21 14:45] VITALS: BP 159/72
--- NOTE | 2022-11-21 16:16 | PHAR ---
DEXAMETHASONE REDUCED FROM 12MG TO 6MG DUE TO GLUCOSE OF 293 PER STANDING ORDER.
[2022-11-23 12:52] VITALS: BP 132/62; PULSE 68; RESP 18; TEMP 36.7; O2SAT 99
[2022-11-23] MEDS: HEPARIN SODIUM LOCK FLUSH 500 UNITS/5 ML SYRINGE IV PUSH (12:54)
[2022-12-12 08:42] LABS: Basophils Percent Auto 0.5 % (0.2-1.2); Eosinophils Absolute Auto 0.2 K/mm3 (0-0.3); Eosinophils Percent Auto 5.4 % (0-4.4); Hematocrit 30.5 % (42.0-52.0); Hemoglobin 10.3 g/dL (14.0-18.0); Immature Granulocyte Absolute 0.03 K/mm3 (0.00-0.031); Immature Granulocyte Percent A 0.7 % (0-0.5); Lymphocytes Percent Auto 17.2 % (18.3-44.2); Mean Corpuscular HGB Conc 33.8 g/dl (32-36); Mean Corpuscular Hemoglobin 31.5 pg (26-34); Mean Corpuscular Volume 93.3 fl (80-100); Mean Platelet Volume 9.1 fl (7.4-10.4); Monocytes Absolute Auto 0.5 K/mm3 (0.1-0.6); Monocytes Percent Auto 12.8 % (2.6-8.5); Neutrophils Absolute Auto 2.6 K/mm3 (1.3-6.7); Neutrophils Percent Auto 63.4 % (45.5-73.1); Platelet Count Result 145 k/mm3 (150-375); Red Blood Count 3.27 M/mm3 (4.6-6.20); Red Cell Distribution Width 13.6 % (11.5-14.5); White Blood Count 4.1 K/mm3 (4.5-10.0)
[2022-12-12 08:48] LABS: Blood Urea Nitrogen 23 mg/dL (8-26); Carbon Dioxide 22 mmol/L (22-30); Chloride 103 mmol/L (98-109); Estimated CRCL calculation 27 ml/min; Estimated Glomerular Filt Rate 30; Glucose 219 mg/dL (70-105); Ionized Calcium (POC) 1.23 mmol/L (1.11-1.31); Potassium 4.1 mmol/L (3.5-4.9); Sodium 136 mmol/L (138-146)
[2022-12-12 09:26] VITALS: BP 140/70; PULSE 73; RESP 16; TEMP 36.3; O2SAT 99
[2022-12-12] MEDS: PALONOSETRON HCL 0.25 MG/5 ML VIAL IV PUSH (10:01)
[2022-12-12 10:50] LABS: Alanine Aminotransferase 27 U/L (6-50); Albumin Level 4.1 g/dL (3.5-5.1); Alkaline Phosphatase 181 U/L (38-126); Anion Gap 11 mmol/L (8-16); Aspartate Amino Transferase 25 U/L (17-59); Bilirubin,Total 0.6 mg/dL (0.2-1.3); Blood Urea Nitrogen 23 mg/dL (9-20); Calcium 9.1 mg/dL (8.4-10.2); Carbon Dioxide 21 mmol/L (22-30); Chloride 102 mmol/L (98-107); Estimated CRCL calculation 31 ml/min; Estimated Glomerular Filt Rate 36; Glucose 215 mg/dL (65-110); Potassium 4.1 mmol/L (3.4-5.0); Sodium 134 mmol/L (137-145)
[2022-12-12] MEDS: ATROPINE SULFATE 1 MG/ML VIAL 0.25 MG SUB-Q (10:54)
[2022-12-12] MEDS: LEUCOVORIN CALCIUM 800 MG in SODIUM CHLORIDE 0.9% IV 210 ML 125 MG IVPB (10:57)
[2022-12-12 13:53] VITALS: BP 138/70; PULSE 77; RESP 16; O2SAT 100
[2022-12-12] MEDS: FLUOROURACIL 4,800 MG in SODIUM CHLORIDE 0.9% IV 88 ML IVPB (14:19)
[2022-12-12] MEDS: FLUOROURACIL 1,000 MG/20 ML VIAL 800 MG IV PUSH (14:19)
[2022-12-14 12:29] VITALS: BP 129/58; PULSE 72; TEMP 36.2; O2SAT 100
[2022-12-14] MEDS: HEPARIN SODIUM LOCK FLUSH 500 UNITS/5 ML SYRINGE IV PUSH (12:34)
--- NOTE | 2022-12-14 13:32 | PC.NURSE ---
home infusion pump removed
[2022-12-15 06:58] LABS: CA 19-9 5737 U/mL (<34)
[2023-01-02 08:33] LABS: Basophils Percent Auto 0.2 % (0.2-1.2); Eosinophils Absolute Auto 0.1 K/mm3 (0-0.3); Eosinophils Percent Auto 1.7 % (0-4.4); Hematocrit 23.3 % (42.0-52.0); Immature Granulocyte Absolute 0.03 K/mm3 (0.00-0.031); Immature Granulocyte Percent A 0.5 % (0-0.5); Lymphocytes Percent Auto 13.4 % (18.3-44.2); Mean Corpuscular HGB Conc 34.3 g/dl (32-36); Mean Corpuscular Hemoglobin 31.1 pg (26-34); Mean Corpuscular Volume 90.7 fl (80-100); Mean Platelet Volume 9.6 fl (7.4-10.4); Monocytes Absolute Auto 0.8 K/mm3 (0.1-0.6); Monocytes Percent Auto 12.9 % (2.6-8.5); Neutrophils Absolute Auto 4.3 K/mm3 (1.3-6.7); Neutrophils Percent Auto 71.3 % (45.5-73.1); Platelet Count Result 161 k/mm3 (150-375); Red Blood Count 2.57 M/mm3 (4.6-6.20); Red Cell Distribution Width 14.2 % (11.5-14.5)
[2023-01-02 08:37] LABS: Blood Urea Nitrogen 16 mg/dL (8-26); Carbon Dioxide 21 mmol/L (22-30); Chloride 107 mmol/L (98-109); Estimated CRCL calculation 39 ml/min; Estimated Glomerular Filt Rate 49; Glucose 142 mg/dL (70-105); Ionized Calcium (POC) 1.23 mmol/L (1.11-1.31); Potassium 2.9 mmol/L (3.5-4.9); Sodium 139 mmol/L (138-146)
[2023-01-02 09:14] VITALS: BP 139/61; PULSE 64; TEMP 36.3; O2SAT 100
[2023-01-02] MEDS: HEPARIN SODIUM LOCK FLUSH 500 UNITS/5 ML SYRINGE (09:19)
[2023-01-02] MEDS: EPOETIN ALFA-EPBX 20,000 UNITS/ML VIAL 20000 UNITS SUB-Q (09:24)
[2023-01-02 12:03] LABS: Alanine Aminotransferase 34 U/L (6-50); Albumin Level 3.1 g/dL (3.5-5.1); Alkaline Phosphatase 189 U/L (38-126); Anion Gap 8 mmol/L (8-16); Aspartate Amino Transferase 40 U/L (17-59); Bilirubin,Total 0.6 mg/dL (0.2-1.3); Blood Urea Nitrogen 17 mg/dL (9-20); Calcium 8.3 mg/dL (8.4-10.2); Carbon Dioxide 21 mmol/L (22-30); Chloride 108 mmol/L (98-107); Estimated CRCL calculation 42 ml/min; Estimated Glomerular Filt Rate 53; Glucose 134 mg/dL (65-110); Potassium 2.9 mmol/L (3.4-5.0); Sodium 137 mmol/L (137-145)
[2023-01-18 08:46] LABS: Basophils Absolute Auto 0.1 K/mm3 (0.0-0.1); Basophils Percent Auto 0.6 % (0.2-1.2); Eosinophils Absolute Auto 0.2 K/mm3 (0-0.3); Eosinophils Percent Auto 1.7 % (0-4.4); Hematocrit 28.1 % (42.0-52.0); Hemoglobin 9.3 g/dL (14.0-18.0); Immature Granulocyte Absolute 0.03 K/mm3 (0.00-0.031); Immature Granulocyte Percent A 0.3 % (0-0.5); Lymphocytes Absolute Auto 0.86 K/mm3 (0.9-3.2); Lymphocytes Percent Auto 9.9 % (18.3-44.2); Mean Corpuscular HGB Conc 33.1 g/dl (32-36); Mean Corpuscular Hemoglobin 31.1 pg (26-34); Mean Platelet Volume 9.1 fl (7.4-10.4); Monocytes Absolute Auto 0.7 K/mm3 (0.1-0.6); Monocytes Percent Auto 7.7 % (2.6-8.5); Neutrophils Absolute Auto 6.9 K/mm3 (1.3-6.7); Neutrophils Percent Auto 79.8 % (45.5-73.1); Platelet Count Result 169 k/mm3 (150-375); Red Blood Count 2.99 M/mm3 (4.6-6.20); White Blood Count 8.7 K/mm3 (4.5-10.0)
[2023-01-18 08:50] LABS: Blood Urea Nitrogen 15 mg/dL (8-26); Carbon Dioxide 23 mmol/L (22-30); Chloride 99 mmol/L (98-109); Estimated CRCL calculation 37 ml/min; Estimated Glomerular Filt Rate 45; Glucose 186 mg/dL (70-105); Ionized Calcium (POC) 1.21 mmol/L (1.11-1.31); Potassium 3.8 mmol/L (3.5-4.9); Sodium 136 mmol/L (138-146)
[2023-01-18 08:52] VITALS: BP 135/76; PULSE 85; TEMP 36.3; O2SAT 100
[2023-01-18] MEDS: ONDANSETRON INJ 4 MG/2 ML VIAL 8 MG IV PUSH (09:23)
[2023-01-18 10:36] LABS: Alanine Aminotransferase 20 U/L (6-50); Albumin Level 3.8 g/dL (3.5-5.1); Alkaline Phosphatase 209 U/L (38-126); Anion Gap 10 mmol/L (8-16); Aspartate Amino Transferase 23 U/L (17-59); Bilirubin,Total 0.5 mg/dL (0.2-1.3); Blood Urea Nitrogen 15 mg/dL (9-20); Calcium 9.1 mg/dL (8.4-10.2); Carbon Dioxide 23 mmol/L (22-30); Chloride 100 mmol/L (98-107); Estimated CRCL calculation 39 ml/min; Estimated Glomerular Filt Rate 49; Glucose 181 mg/dL (65-110); Potassium 3.8 mmol/L (3.4-5.0); Sodium 133 mmol/L (137-145)
[2023-01-18] MEDS: HEPARIN SODIUM LOCK FLUSH 500 UNITS/5 ML SYRINGE IV PUSH (11:45)
[2023-01-23 09:11] LABS: Basophils Percent Auto 0.2 % (0.2-1.2); Eosinophils Absolute Auto 0.2 K/mm3 (0-0.3); Eosinophils Percent Auto 3.1 % (0-4.4); Hematocrit 24.1 % (42.0-52.0); Immature Granulocyte Absolute 0.33 K/mm3 (0.00-0.031); Immature Granulocyte Percent A 6.3 % (0-0.5); Lymphocytes Percent Auto 13.5 % (18.3-44.2); Mean Corpuscular HGB Conc 33.2 g/dl (32-36); Mean Corpuscular Hemoglobin 30.9 pg (26-34); Mean Corpuscular Volume 93.1 fl (80-100); Mean Platelet Volume 9.6 fl (7.4-10.4); Monocytes Absolute Auto 0.2 K/mm3 (0.1-0.6); Monocytes Percent Auto 3.5 % (2.6-8.5); Neutrophils Absolute Auto 3.8 K/mm3 (1.3-6.7); Neutrophils Percent Auto 73.4 % (45.5-73.1); Platelet Count Result 122 k/mm3 (150-375); Red Blood Count 2.59 M/mm3 (4.6-6.20); Red Cell Distribution Width 14.1 % (11.5-14.5); White Blood Count 5.2 K/mm3 (4.5-10.0)
[2023-01-23 09:17] LABS: Anisocytosis 1+ (NORMAL); Hypochromasia 1+ (NORMAL); Microcytosis 1+ (NORMAL); Platelet Estimate Decreased (Adequate); Schistocytes None Seen (NORMAL)
[2023-01-23 09:23] VITALS: BP 118/53; PULSE 68; O2SAT 100
[2023-01-23 09:26] VITALS: BP 125/61
[2023-01-23] MEDS: EPOETIN ALFA-EPBX 20,000 UNITS/ML VIAL 20000 UNITS SUB-Q (09:40)
[2023-01-25 11:24] LABS: Basophils Percent Auto 0.2 % (0.2-1.2); Eosinophils Absolute Auto 0.1 K/mm3 (0-0.3); Eosinophils Percent Auto 1.1 % (0-4.4); Hematocrit 22.4 % (42.0-52.0); Hemoglobin 7.6 g/dL (14.0-18.0); Immature Granulocyte Absolute 0.03 K/mm3 (0.00-0.031); Immature Granulocyte Percent A 0.6 % (0-0.5); Lymphocytes Absolute Auto 0.69 K/mm3 (0.9-3.2); Lymphocytes Percent Auto 12.9 % (18.3-44.2); Mean Corpuscular HGB Conc 33.9 g/dl (32-36); Mean Corpuscular Hemoglobin 31.1 pg (26-34); Mean Corpuscular Volume 91.8 fl (80-100); Mean Platelet Volume 9.9 fl (7.4-10.4); Monocytes Absolute Auto 0.5 K/mm3 (0.1-0.6); Monocytes Percent Auto 10.1 % (2.6-8.5); Neutrophils Percent Auto 75.1 % (45.5-73.1); Platelet Count Result 96 k/mm3 (150-375); Red Blood Count 2.44 M/mm3 (4.6-6.20); Red Cell Distribution Width 14.1 % (11.5-14.5); White Blood Count 5.4 K/mm3 (4.5-10.0)
[2023-01-25 11:27] LABS: Blood Urea Nitrogen 13 mg/dL (8-26); Carbon Dioxide 21 mmol/L (22-30); Chloride 102 mmol/L (98-109); Estimated CRCL calculation 37 ml/min; Estimated Glomerular Filt Rate 45; Glucose 192 mg/dL (70-105); Ionized Calcium (POC) 1.23 mmol/L (1.11-1.31); Potassium 2.9 mmol/L (3.5-4.9); Sodium 138 mmol/L (138-146)
[2023-01-25] MEDS: HEPARIN SODIUM LOCK FLUSH 500 UNITS/5 ML SYRINGE (11:47)
[2023-01-25 12:51] LABS: Alanine Aminotransferase 36 U/L (6-50); Albumin Level 3.2 g/dL (3.5-5.1); Alkaline Phosphatase 179 U/L (38-126); Anion Gap 10 mmol/L (8-16); Aspartate Amino Transferase 35 U/L (17-59); Bilirubin,Total 0.4 mg/dL (0.2-1.3); Blood Urea Nitrogen 14 mg/dL (9-20); Calcium 8.7 mg/dL (8.4-10.2); Carbon Dioxide 21 mmol/L (22-30); Chloride 104 mmol/L (98-107); Estimated CRCL calculation 39 ml/min; Estimated Glomerular Filt Rate 49; Glucose 189 mg/dL (65-110); Potassium 2.9 mmol/L (3.4-5.0); Sodium 135 mmol/L (137-145)
[2023-02-06 08:27] LABS: Basophils Percent Auto 0.7 % (0.2-1.2); Eosinophils Absolute Auto 0.1 K/mm3 (0-0.3); Eosinophils Percent Auto 2.3 % (0-4.4); Hematocrit 23.7 % (42.0-52.0); Immature Granulocyte Absolute 0.02 K/mm3 (0.00-0.031); Immature Granulocyte Percent A 0.4 % (0-0.5); Lymphocytes Absolute Auto 0.69 K/mm3 (0.9-3.2); Lymphocytes Percent Auto 12.2 % (18.3-44.2); Mean Corpuscular HGB Conc 33.8 g/dl (32-36); Mean Corpuscular Hemoglobin 31.3 pg (26-34); Mean Corpuscular Volume 92.6 fl (80-100); Mean Platelet Volume 9.9 fl (7.4-10.4); Monocytes Absolute Auto 0.6 K/mm3 (0.1-0.6); Monocytes Percent Auto 10.6 % (2.6-8.5); Neutrophils Absolute Auto 4.2 K/mm3 (1.3-6.7); Neutrophils Percent Auto 73.8 % (45.5-73.1); Platelet Count Result 181 k/mm3 (150-375); Red Blood Count 2.56 M/mm3 (4.6-6.20); Red Cell Distribution Width 14.6 % (11.5-14.5); White Blood Count 5.6 K/mm3 (4.5-10.0)
[2023-02-06 08:31] LABS: Blood Urea Nitrogen 13 mg/dL (8-26); Carbon Dioxide 22 mmol/L (22-30); Chloride 104 mmol/L (98-109); Estimated CRCL calculation 46 ml/min; Estimated Glomerular Filt Rate 58; Glucose 136 mg/dL (70-105); Ionized Calcium (POC) 1.22 mmol/L (1.11-1.31); Potassium 3.4 mmol/L (3.5-4.9); Sodium 139 mmol/L (138-146)
[2023-02-06] MEDS: HEPARIN SODIUM LOCK FLUSH 500 UNITS/5 ML SYRINGE (08:54)
[2023-02-06 10:37] LABS: Alanine Aminotransferase 17 U/L (6-50); Albumin Level 3.4 g/dL (3.5-5.1); Alkaline Phosphatase 185 U/L (38-126); Anion Gap 11 mmol/L (8-16); Aspartate Amino Transferase 21 U/L (17-59); Bilirubin,Total 0.5 mg/dL (0.2-1.3); Blood Urea Nitrogen 13 mg/dL (9-20); Calcium 8.9 mg/dL (8.4-10.2); Carbon Dioxide 21 mmol/L (22-30); Chloride 105 mmol/L (98-107); Estimated CRCL calculation 50 ml/min; Estimated Glomerular Filt Rate > 60; Glucose 135 mg/dL (65-110); Potassium 3.5 mmol/L (3.4-5.0); Sodium 137 mmol/L (137-145)
[2023-02-13 08:30] LABS: Basophils Absolute Auto 0.1 K/mm3 (0.0-0.1); Basophils Percent Auto 0.6 % (0.2-1.2); Eosinophils Absolute Auto 0.2 K/mm3 (0-0.3); Eosinophils Percent Auto 2.3 % (0-4.4); Hematocrit 26.4 % (42.0-52.0); Hemoglobin 8.6 g/dL (14.0-18.0); Immature Granulocyte Absolute 0.01 K/mm3 (0.00-0.031); Immature Granulocyte Percent A 0.1 % (0-0.5); Lymphocytes Absolute Auto 0.85 K/mm3 (0.9-3.2); Mean Corpuscular HGB Conc 32.6 g/dl (32-36); Mean Corpuscular Hemoglobin 30.5 pg (26-34); Mean Corpuscular Volume 93.6 fl (80-100); Monocytes Absolute Auto 0.8 K/mm3 (0.1-0.6); Monocytes Percent Auto 9.7 % (2.6-8.5); Neutrophils Absolute Auto 5.9 K/mm3 (1.3-6.7); Neutrophils Percent Auto 76.3 % (45.5-73.1); Platelet Count Result 195 k/mm3 (150-375); Red Blood Count 2.82 M/mm3 (4.6-6.20); Red Cell Distribution Width 14.5 % (11.5-14.5); White Blood Count 7.7 K/mm3 (4.5-10.0)
[2023-02-13 08:33] LABS: Blood Urea Nitrogen 20 mg/dL (8-26); Carbon Dioxide 21 mmol/L (22-30); Chloride 104 mmol/L (98-109); Estimated CRCL calculation 42 ml/min; Estimated Glomerular Filt Rate 53; Glucose 192 mg/dL (70-105); Ionized Calcium (POC) 1.25 mmol/L (1.11-1.31); Potassium 4.1 mmol/L (3.5-4.9); Sodium 138 mmol/L (138-146)
[2023-02-13 09:08] VITALS: BP 132/65; PULSE 72; TEMP 36.1; O2SAT 100
[2023-02-13] MEDS: ONDANSETRON INJ 4 MG/2 ML VIAL 8 MG IV PUSH (09:29)
[2023-02-13] MEDS: EPOETIN ALFA-EPBX 20,000 UNITS/ML VIAL 20000 UNITS SUB-Q (09:39)
[2023-02-13 09:42] LABS: Alanine Aminotransferase 17 U/L (6-50); Albumin Level 3.7 g/dL (3.5-5.1); Alkaline Phosphatase 188 U/L (38-126); Anion Gap 9 mmol/L (8-16); Aspartate Amino Transferase 23 U/L (17-59); Bilirubin,Total 0.4 mg/dL (0.2-1.3); Blood Urea Nitrogen 20 mg/dL (9-20); Calcium 8.9 mg/dL (8.4-10.2); Carbon Dioxide 23 mmol/L (22-30); Chloride 104 mmol/L (98-107); Estimated CRCL calculation 42 ml/min; Estimated Glomerular Filt Rate 53; Glucose 188 mg/dL (65-110); Potassium 4.2 mmol/L (3.4-5.0); Sodium 136 mmol/L (137-145)
[2023-02-13] MEDS: PACLITAXEL PROTEIN BOUND IVPB (10:25)
[2023-02-13] MEDS: PREMIXIV IVPB (10:25)
[2023-02-13] MEDS: HEPARIN SODIUM LOCK FLUSH 500 UNITS/5 ML SYRINGE IV PUSH (11:54)
[2023-02-13 11:57] VITALS: BP 149/66
[2023-02-22 09:55] LABS: Basophils Percent Auto 0.2 % (0.2-1.2); Eosinophils Absolute Auto 0.1 K/mm3 (0-0.3); Eosinophils Percent Auto 1.5 % (0-4.4); Hematocrit 24.6 % (42.0-52.0); Immature Granulocyte Absolute 0.03 K/mm3 (0.00-0.031); Immature Granulocyte Percent A 0.4 % (0-0.5); Lymphocytes Absolute Auto 0.85 K/mm3 (0.9-3.2); Lymphocytes Percent Auto 10.5 % (18.3-44.2); Mean Corpuscular HGB Conc 32.5 g/dl (32-36); Mean Corpuscular Volume 92.1 fl (80-100); Mean Platelet Volume 10.1 fl (7.4-10.4); Monocytes Absolute Auto 0.8 K/mm3 (0.1-0.6); Monocytes Percent Auto 9.6 % (2.6-8.5); Neutrophils Absolute Auto 6.3 K/mm3 (1.3-6.7); Neutrophils Percent Auto 77.8 % (45.5-73.1); Platelet Count Result 81 k/mm3 (150-375); Red Blood Count 2.67 M/mm3 (4.6-6.20); Red Cell Distribution Width 14.6 % (11.5-14.5); White Blood Count 8.1 K/mm3 (4.5-10.0)
[2023-02-22 09:59] LABS: Blood Urea Nitrogen 14 mg/dL (8-26); Carbon Dioxide 22 mmol/L (22-30); Chloride 105 mmol/L (98-109); Estimated CRCL calculation 46 ml/min; Estimated Glomerular Filt Rate 58; Glucose 188 mg/dL (70-105); Ionized Calcium (POC) 1.23 mmol/L (1.11-1.31); Potassium 3.6 mmol/L (3.5-4.9); Sodium 139 mmol/L (138-146)
[2023-02-22 10:11] VITALS: BP 131/57; PULSE 62; TEMP 36.6; O2SAT 99
[2023-02-22] MEDS: HEPARIN SODIUM LOCK FLUSH 500 UNITS/5 ML SYRINGE (10:20)
[2023-02-22] MEDS: EPOETIN ALFA-EPBX 20,000 UNITS/ML VIAL 20000 UNITS SUB-Q (10:27)
[2023-02-22 10:39] LABS: Alanine Aminotransferase 28 U/L (6-50); Albumin Level 3.3 g/dL (3.5-5.1); Alkaline Phosphatase 207 U/L (38-126); Anion Gap 8 mmol/L (8-16); Aspartate Amino Transferase 30 U/L (17-59); Bilirubin,Total 0.4 mg/dL (0.2-1.3); Blood Urea Nitrogen 14 mg/dL (9-20); Calcium 8.8 mg/dL (8.4-10.2); Carbon Dioxide 23 mmol/L (22-30); Chloride 106 mmol/L (98-107); Estimated CRCL calculation 50 ml/min; Estimated Glomerular Filt Rate > 60; Glucose 183 mg/dL (65-110); Potassium 3.6 mmol/L (3.4-5.0); Sodium 137 mmol/L (137-145)
[2023-03-01 08:29] LABS: Basophils Percent Auto 0.4 % (0.2-1.2); Eosinophils Absolute Auto 0.2 K/mm3 (0-0.3); Eosinophils Percent Auto 2.3 % (0-4.4); Hematocrit 25.1 % (42.0-52.0); Hemoglobin 8.2 g/dL (14.0-18.0); Immature Granulocyte Absolute 0.03 K/mm3 (0.00-0.031); Immature Granulocyte Percent A 0.4 % (0-0.5); Lymphocytes Absolute Auto 0.53 K/mm3 (0.9-3.2); Lymphocytes Percent Auto 6.2 % (18.3-44.2); Mean Corpuscular HGB Conc 32.7 g/dl (32-36); Mean Corpuscular Hemoglobin 29.8 pg (26-34); Mean Corpuscular Volume 91.3 fl (80-100); Mean Platelet Volume 9.7 fl (7.4-10.4); Monocytes Absolute Auto 0.8 K/mm3 (0.1-0.6); Monocytes Percent Auto 9.3 % (2.6-8.5); Neutrophils Percent Auto 81.4 % (45.5-73.1); Platelet Count Result 180 k/mm3 (150-375); Red Blood Count 2.75 M/mm3 (4.6-6.20); Red Cell Distribution Width 15.6 % (11.5-14.5); White Blood Count 8.5 K/mm3 (4.5-10.0)
[2023-03-01 08:31] LABS: Blood Urea Nitrogen 13 mg/dL (8-26); Carbon Dioxide 22 mmol/L (22-30); Chloride 105 mmol/L (98-109); Estimated CRCL calculation 50 ml/min; Estimated Glomerular Filt Rate > 60; Glucose 146 mg/dL (70-105); Ionized Calcium (POC) 1.21 mmol/L (1.11-1.31); Potassium 3.2 mmol/L (3.5-4.9); Sodium 139 mmol/L (138-146)
[2023-03-01 08:57] VITALS: BP 129/59; PULSE 70; TEMP 36.4; O2SAT 100
[2023-03-01] MEDS: ONDANSETRON INJ 4 MG/2 ML VIAL 8 MG IV PUSH (09:07)
[2023-03-01] MEDS: EPOETIN ALFA-EPBX 20,000 UNITS/ML VIAL 20000 UNITS SUB-Q (09:27)
[2023-03-01 09:44] LABS: Alanine Aminotransferase 19 U/L (6-50); Albumin Level 3.4 g/dL (3.5-5.1); Alkaline Phosphatase 204 U/L (38-126); Anion Gap 8 mmol/L (8-16); Aspartate Amino Transferase 22 U/L (17-59); Bilirubin,Total 0.3 mg/dL (0.2-1.3); Blood Urea Nitrogen 14 mg/dL (9-20); Calcium 8.8 mg/dL (8.4-10.2); Carbon Dioxide 22 mmol/L (22-30); Chloride 108 mmol/L (98-107); Estimated CRCL calculation 54 ml/min; Estimated Glomerular Filt Rate > 60; Glucose 147 mg/dL (65-110); Potassium 3.3 mmol/L (3.4-5.0); Sodium 138 mmol/L (137-145)
[2023-03-01] MEDS: PACLITAXEL PROTEIN BOUND IVPB (09:54)
[2023-03-01] MEDS: PREMIXIV IVPB (09:54)
[2023-03-01 11:16] VITALS: BP 132/73
[2023-03-01] MEDS: HEPARIN SODIUM LOCK FLUSH 500 UNITS/5 ML SYRINGE IV PUSH (11:18)
[2023-03-06 08:52] LABS: Basophils Percent Auto 0.4 % (0.2-1.2); Eosinophils Absolute Auto 0.1 K/mm3 (0-0.3); Eosinophils Percent Auto 2.6 % (0-4.4); Hematocrit 25.2 % (42.0-52.0); Hemoglobin 8.1 g/dL (14.0-18.0); Immature Granulocyte Absolute 0.04 K/mm3 (0.00-0.031); Immature Granulocyte Percent A 0.8 % (0-0.5); Lymphocytes Absolute Auto 0.66 K/mm3 (0.9-3.2); Mean Corpuscular HGB Conc 32.1 g/dl (32-36); Mean Corpuscular Volume 93.3 fl (80-100); Mean Platelet Volume 9.5 fl (7.4-10.4); Monocytes Absolute Auto 0.1 K/mm3 (0.1-0.6); Neutrophils Absolute Auto 4.1 K/mm3 (1.3-6.7); Neutrophils Percent Auto 81.2 % (45.5-73.1); Platelet Count Result 158 k/mm3 (150-375); Red Cell Distribution Width 15.4 % (11.5-14.5); White Blood Count 5.1 K/mm3 (4.5-10.0)
[2023-03-06 10:08] LABS: Alanine Aminotransferase 48 U/L (6-50); Albumin Level 3.4 g/dL (3.5-5.1); Alkaline Phosphatase 206 U/L (38-126); Anion Gap 6 mmol/L (8-16); Aspartate Amino Transferase 32 U/L (17-59); Bilirubin,Total 0.6 mg/dL (0.2-1.3); Blood Urea Nitrogen 15 mg/dL (9-20); Calcium 8.9 mg/dL (8.4-10.2); Carbon Dioxide 27 mmol/L (22-30); Chloride 102 mmol/L (98-107); Estimated CRCL calculation 46 ml/min; Estimated Glomerular Filt Rate 58; Glucose 148 mg/dL (65-110); Potassium 4.2 mmol/L (3.4-5.0); Sodium 135 mmol/L (137-145)
[2023-03-08 09:19] VITALS: BP 143/70; PULSE 75; TEMP 37.1; O2SAT 100
[2023-03-08] MEDS: EPOETIN ALFA-EPBX 20,000 UNITS/ML VIAL 20000 UNITS SUB-Q (09:27)
[2023-03-15 08:50] LABS: Basophils Percent Auto 0.3 % (0.2-1.2); Eosinophils Absolute Auto 0.2 K/mm3 (0-0.3); Eosinophils Percent Auto 2.4 % (0-4.4); Hematocrit 29.7 % (42.0-52.0); Hemoglobin 9.5 g/dL (14.0-18.0); Immature Granulocyte Absolute 0.03 K/mm3 (0.00-0.031); Immature Granulocyte Percent A 0.4 % (0-0.5); Lymphocytes Absolute Auto 0.55 K/mm3 (0.9-3.2); Lymphocytes Percent Auto 7.3 % (18.3-44.2); Mean Corpuscular Hemoglobin 29.2 pg (26-34); Mean Corpuscular Volume 91.4 fl (80-100); Mean Platelet Volume 8.9 fl (7.4-10.4); Monocytes Absolute Auto 0.7 K/mm3 (0.1-0.6); Monocytes Percent Auto 9.7 % (2.6-8.5); Neutrophils Percent Auto 79.9 % (45.5-73.1); Platelet Count Result 124 k/mm3 (150-375); Red Blood Count 3.25 M/mm3 (4.6-6.20); Red Cell Distribution Width 16.6 % (11.5-14.5); White Blood Count 7.5 K/mm3 (4.5-10.0)
[2023-03-15 08:53] LABS: Blood Urea Nitrogen 16 mg/dL (8-26); Carbon Dioxide 24 mmol/L (22-30); Chloride 104 mmol/L (98-109); Estimated CRCL calculation 39 ml/min; Estimated Glomerular Filt Rate 49; Glucose 211 mg/dL (70-105); Ionized Calcium (POC) 1.27 mmol/L (1.11-1.31); Potassium 3.9 mmol/L (3.5-4.9); Sodium 140 mmol/L (138-146)
[2023-03-15 08:58] VITALS: BP 140/66; PULSE 62; TEMP 36.7; O2SAT 100
[2023-03-15] MEDS: ONDANSETRON INJ 4 MG/2 ML VIAL 8 MG IV PUSH (09:20)
[2023-03-15] MEDS: EPOETIN ALFA-EPBX 20,000 UNITS/ML VIAL 20000 UNITS SUB-Q (09:21)
[2023-03-15] MEDS: PACLITAXEL PROTEIN BOUND IVPB (10:10)
[2023-03-15] MEDS: PREMIXIV IVPB (10:10)
[2023-03-15 10:20] LABS: Alanine Aminotransferase 21 U/L (6-50); Albumin Level 3.3 g/dL (3.5-5.1); Alkaline Phosphatase 209 U/L (38-126); Anion Gap 8 mmol/L (8-16); Aspartate Amino Transferase 28 U/L (17-59); Bilirubin,Total 0.4 mg/dL (0.2-1.3); Blood Urea Nitrogen 15 mg/dL (9-20); Calcium 8.6 mg/dL (8.4-10.2); Carbon Dioxide 24 mmol/L (22-30); Chloride 106 mmol/L (98-107); Estimated CRCL calculation 42 ml/min; Estimated Glomerular Filt Rate 53; Glucose 205 mg/dL (65-110); Sodium 138 mmol/L (137-145)
[2023-03-15] MEDS: HEPARIN SODIUM LOCK FLUSH 500 UNITS/5 ML SYRINGE IV PUSH (11:44)
[2023-03-15 11:48] VITALS: BP 164/68
[2023-03-22 12:03] LABS: Basophils Percent Auto 0.3 % (0.2-1.2); Eosinophils Absolute Auto 0.1 K/mm3 (0-0.3); Eosinophils Percent Auto 1.8 % (0-4.4); Hematocrit 28.9 % (42.0-52.0); Hemoglobin 9.5 g/dL (14.0-18.0); Immature Granulocyte Absolute 0.04 K/mm3 (0.00-0.031); Immature Granulocyte Percent A 0.6 % (0-0.5); Lymphocytes Percent Auto 10.4 % (18.3-44.2); Mean Corpuscular HGB Conc 32.9 g/dl (32-36); Mean Corpuscular Hemoglobin 29.2 pg (26-34); Mean Corpuscular Volume 88.9 fl (80-100); Mean Platelet Volume 9.8 fl (7.4-10.4); Monocytes Absolute Auto 0.6 K/mm3 (0.1-0.6); Monocytes Percent Auto 9.5 % (2.6-8.5); Neutrophils Absolute Auto 5.2 K/mm3 (1.3-6.7); Neutrophils Percent Auto 77.4 % (45.5-73.1); Platelet Count Result 134 k/mm3 (150-375); Red Blood Count 3.25 M/mm3 (4.6-6.20); White Blood Count 6.7 K/mm3 (4.5-10.0)
[2023-03-22 12:08] LABS: Blood Urea Nitrogen 16 mg/dL (8-26); Carbon Dioxide 23 mmol/L (22-30); Chloride 103 mmol/L (98-109); Estimated CRCL calculation 42 ml/min; Estimated Glomerular Filt Rate 53; Glucose 144 mg/dL (70-105); Ionized Calcium (POC) 1.21 mmol/L (1.11-1.31); Potassium 3.8 mmol/L (3.5-4.9); Sodium 138 mmol/L (138-146)
[2023-03-22 12:09] VITALS: BP 139/58; PULSE 66; TEMP 36.7; O2SAT 100
[2023-03-22] MEDS: ONDANSETRON INJ 4 MG/2 ML VIAL 8 MG IV PUSH (12:26)
[2023-03-22] MEDS: EPOETIN ALFA-EPBX 20,000 UNITS/ML VIAL 20000 UNITS SUB-Q (12:31)
[2023-03-22] MEDS: PREMIXIV IVPB (13:04)
[2023-03-22] MEDS: PACLITAXEL PROTEIN BOUND IVPB (13:04)
[2023-03-22 14:27] VITALS: BP 102/57
[2023-03-22] MEDS: HEPARIN SODIUM LOCK FLUSH 500 UNITS/5 ML SYRINGE IV PUSH (14:29)
[2023-03-22 19:40] LABS: Alanine Aminotransferase 45 U/L (6-50); Albumin Level 3.5 g/dL (3.5-5.1); Alkaline Phosphatase 231 U/L (38-126); Anion Gap 12 mmol/L (8-16); Aspartate Amino Transferase 30 U/L (17-59); Bilirubin,Total 0.4 mg/dL (0.2-1.3); Blood Urea Nitrogen 16 mg/dL (9-20); Calcium 8.8 mg/dL (8.4-10.2); Carbon Dioxide 21 mmol/L (22-30); Chloride 104 mmol/L (98-107); Estimated CRCL calculation 46 ml/min; Estimated Glomerular Filt Rate 58; Glucose 139 mg/dL (65-110); Potassium 3.9 mmol/L (3.4-5.0); Sodium 137 mmol/L (137-145)
[2023-03-29 10:50] LABS: Basophils Percent Auto 0.2 % (0.2-1.2); Eosinophils Absolute Auto 0.1 K/mm3 (0-0.3); Eosinophils Percent Auto 2.4 % (0-4.4); Hematocrit 26.1 % (42.0-52.0); Hemoglobin 8.7 g/dL (14.0-18.0); Immature Granulocyte Absolute 0.02 K/mm3 (0.00-0.031); Immature Granulocyte Percent A 0.4 % (0-0.5); Immature Platelet Fraction Pct 4.3 % (0.9-11.2); Lymphocytes Percent Auto 11.8 % (18.3-44.2); Mean Corpuscular HGB Conc 33.3 g/dl (32-36); Mean Corpuscular Hemoglobin 29.4 pg (26-34); Mean Corpuscular Volume 88.2 fl (80-100); Mean Platelet Volume 10.2 fl (7.4-10.4); Monocytes Absolute Auto 0.4 K/mm3 (0.1-0.6); Monocytes Percent Auto 8.7 % (2.6-8.5); Neutrophils Absolute Auto 3.9 K/mm3 (1.3-6.7); Neutrophils Percent Auto 76.5 % (45.5-73.1); Platelet Count Result 62 k/mm3 (150-375); Red Blood Count 2.96 M/mm3 (4.6-6.20); Red Cell Distribution Width 16.5 % (11.5-14.5); White Blood Count 5.1 K/mm3 (4.5-10.0)
[2023-03-29 10:52] LABS: Blood Urea Nitrogen 14 mg/dL (8-26); Carbon Dioxide 19 mmol/L (22-30); Chloride 106 mmol/L (98-109); Estimated CRCL calculation 46 ml/min; Estimated Glomerular Filt Rate 58; Glucose 152 mg/dL (70-105); Ionized Calcium (POC) 1.22 mmol/L (1.11-1.31); Potassium 3.3 mmol/L (3.5-4.9); Sodium 139 mmol/L (138-146)
[2023-03-29] MEDS: HEPARIN SODIUM LOCK FLUSH 500 UNITS/5 ML SYRINGE (11:05)
[2023-03-29] MEDS: EPOETIN ALFA-EPBX 20,000 UNITS/ML VIAL 20000 UNITS SUB-Q (11:09)
[2023-03-29 14:01] LABS: Alanine Aminotransferase 33 U/L (6-50); Albumin Level 3.2 g/dL (3.5-5.1); Alkaline Phosphatase 192 U/L (38-126); Anion Gap 9 mmol/L (8-16); Aspartate Amino Transferase 24 U/L (17-59); Bilirubin,Total 0.4 mg/dL (0.2-1.3); Blood Urea Nitrogen 14 mg/dL (9-20); Calcium 8.6 mg/dL (8.4-10.2); Carbon Dioxide 20 mmol/L (22-30); Chloride 107 mmol/L (98-107); Estimated CRCL calculation 54 ml/min; Estimated Glomerular Filt Rate > 60; Glucose 148 mg/dL (65-110); Potassium 3.3 mmol/L (3.4-5.0); Sodium 136 mmol/L (137-145)
[2023-04-05 08:18] LABS: Basophils Percent Auto 0.5 % (0.2-1.2); Eosinophils Absolute Auto 0.2 K/mm3 (0-0.3); Eosinophils Percent Auto 3.7 % (0-4.4); Hematocrit 28.5 % (42.0-52.0); Hemoglobin 9.2 g/dL (14.0-18.0); Immature Granulocyte Absolute 0.02 K/mm3 (0.00-0.031); Immature Granulocyte Percent A 0.3 % (0-0.5); Lymphocytes Absolute Auto 0.63 K/mm3 (0.9-3.2); Lymphocytes Percent Auto 9.7 % (18.3-44.2); Mean Corpuscular HGB Conc 32.3 g/dl (32-36); Mean Corpuscular Hemoglobin 29.3 pg (26-34); Mean Corpuscular Volume 90.8 fl (80-100); Mean Platelet Volume 10.3 fl (7.4-10.4); Monocytes Absolute Auto 0.9 K/mm3 (0.1-0.6); Monocytes Percent Auto 13.2 % (2.6-8.5); Neutrophils Absolute Auto 4.7 K/mm3 (1.3-6.7); Neutrophils Percent Auto 72.6 % (45.5-73.1); Platelet Count Result 218 k/mm3 (150-375); Red Blood Count 3.14 M/mm3 (4.6-6.20); Red Cell Distribution Width 17.6 % (11.5-14.5); White Blood Count 6.5 K/mm3 (4.5-10.0)
[2023-04-05 08:22] LABS: Blood Urea Nitrogen 16 mg/dL (8-26); Carbon Dioxide 22 mmol/L (22-30); Chloride 103 mmol/L (98-109); Estimated CRCL calculation 50 ml/min; Estimated Glomerular Filt Rate > 60; Glucose 133 mg/dL (70-105); Ionized Calcium (POC) 1.22 mmol/L (1.11-1.31); Potassium 3.4 mmol/L (3.5-4.9); Sodium 140 mmol/L (138-146)
[2023-04-05] MEDS: ONDANSETRON INJ 4 MG/2 ML VIAL 8 MG IV PUSH (09:37)
[2023-04-05 09:42] VITALS: BP 143/64; PULSE 64; TEMP 36.7; O2SAT 100
[2023-04-05] MEDS: EPOETIN ALFA-EPBX 20,000 UNITS/ML VIAL 20000 UNITS SUB-Q (09:42)
[2023-04-05] MEDS: PACLITAXEL PROTEIN BOUND IVPB (10:13)
[2023-04-05] MEDS: PREMIXIV IVPB (10:13)
[2023-04-05 10:51] VITALS: BP 154/68
[2023-04-05] MEDS: HEPARIN SODIUM LOCK FLUSH 500 UNITS/5 ML SYRINGE IV PUSH ×2 (10:52→11:43)
[2023-04-05 11:05] LABS: Alanine Aminotransferase 21 U/L (6-50); Albumin Level 3.3 g/dL (3.5-5.1); Alkaline Phosphatase 183 U/L (38-126); Anion Gap 9 mmol/L (8-16); Aspartate Amino Transferase 20 U/L (17-59); Bilirubin,Total 0.4 mg/dL (0.2-1.3); Blood Urea Nitrogen 17 mg/dL (9-20); Calcium 8.5 mg/dL (8.4-10.2); Carbon Dioxide 23 mmol/L (22-30); Chloride 106 mmol/L (98-107); Estimated CRCL calculation 50 ml/min; Estimated Glomerular Filt Rate > 60; Glucose 129 mg/dL (65-110); Potassium 3.3 mmol/L (3.4-5.0); Sodium 138 mmol/L (137-145)
[2023-04-05 11:46] VITALS: BP 170/80
[2023-04-12 11:47] LABS: Basophils Percent Auto 0.5 % (0.2-1.2); Eosinophils Absolute Auto 0.1 K/mm3 (0-0.3); Eosinophils Percent Auto 1.7 % (0-4.4); Hematocrit 28.1 % (42.0-52.0); Hemoglobin 8.9 g/dL (14.0-18.0); Immature Granulocyte Absolute 0.03 K/mm3 (0.00-0.031); Immature Granulocyte Percent A 0.5 % (0-0.5); Lymphocytes Absolute Auto 0.91 K/mm3 (0.9-3.2); Lymphocytes Percent Auto 15.5 % (18.3-44.2); Mean Corpuscular HGB Conc 31.7 g/dl (32-36); Mean Corpuscular Hemoglobin 28.7 pg (26-34); Mean Corpuscular Volume 90.6 fl (80-100); Mean Platelet Volume 9.3 fl (7.4-10.4); Neutrophils Absolute Auto 3.8 K/mm3 (1.3-6.7); Neutrophils Percent Auto 64.8 % (45.5-73.1); Platelet Count Result 179 k/mm3 (150-375); Red Cell Distribution Width 17.4 % (11.5-14.5); White Blood Count 5.9 K/mm3 (4.5-10.0)
[2023-04-12 14:11] VITALS: BP 146/66; PULSE 62; O2SAT 100
[2023-04-12] MEDS: EPOETIN ALFA-EPBX 20,000 UNITS/ML VIAL 20000 UNITS SUB-Q (14:16)
[2023-04-19 11:51] LABS: Basophils Percent Auto 0.4 % (0.2-1.2); Eosinophils Absolute Auto 0.2 K/mm3 (0-0.3); Eosinophils Percent Auto 2.6 % (0-4.4); Hematocrit 27.6 % (42.0-52.0); Hemoglobin 8.9 g/dL (14.0-18.0); Immature Granulocyte Absolute 0.04 K/mm3 (0.00-0.031); Immature Granulocyte Percent A 0.5 % (0-0.5); Lymphocytes Absolute Auto 0.71 K/mm3 (0.9-3.2); Lymphocytes Percent Auto 8.7 % (18.3-44.2); Mean Corpuscular HGB Conc 32.2 g/dl (32-36); Mean Corpuscular Hemoglobin 29.3 pg (26-34); Mean Corpuscular Volume 90.8 fl (80-100); Mean Platelet Volume 10.4 fl (7.4-10.4); Monocytes Absolute Auto 0.9 K/mm3 (0.1-0.6); Monocytes Percent Auto 10.8 % (2.6-8.5); Neutrophils Absolute Auto 6.3 K/mm3 (1.3-6.7); Platelet Count Result 131 k/mm3 (150-375); Red Blood Count 3.04 M/mm3 (4.6-6.20); Red Cell Distribution Width 19.1 % (11.5-14.5); White Blood Count 8.2 K/mm3 (4.5-10.0)
[2023-04-19 11:55] LABS: Blood Urea Nitrogen 16 mg/dL (8-26); Carbon Dioxide 22 mmol/L (22-30); Chloride 106 mmol/L (98-109); Estimated CRCL calculation 54 ml/min; Estimated Glomerular Filt Rate > 60; Glucose 158 mg/dL (70-105); Ionized Calcium (POC) 1.23 mmol/L (1.11-1.31); Potassium 3.7 mmol/L (3.5-4.9); Sodium 141 mmol/L (138-146)
[2023-04-19 12:07] VITALS: BP 144/66; PULSE 61; TEMP 36.9; O2SAT 100
[2023-04-19] MEDS: ONDANSETRON INJ 4 MG/2 ML VIAL 8 MG IV PUSH (12:21)
[2023-04-19 12:31] LABS: Alanine Aminotransferase 23 U/L (6-50); Albumin Level 3.1 g/dL (3.5-5.1); Alkaline Phosphatase 185 U/L (38-126); Anion Gap 7 mmol/L (8-16); Aspartate Amino Transferase 21 U/L (17-59); Bilirubin,Total 0.4 mg/dL (0.2-1.3); Blood Urea Nitrogen 18 mg/dL (9-20); Calcium 8.6 mg/dL (8.4-10.2); Carbon Dioxide 22 mmol/L (22-30); Chloride 109 mmol/L (98-107); Estimated CRCL calculation 60 ml/min; Estimated Glomerular Filt Rate > 60; Glucose 154 mg/dL (65-110); Potassium 3.8 mmol/L (3.4-5.0); Sodium 138 mmol/L (137-145)
[2023-04-19] MEDS: PREMIXIV IVPB (13:13)
[2023-04-19] MEDS: PACLITAXEL PROTEIN BOUND IVPB (13:13)
[2023-04-19 14:37] VITALS: BP 165/71
[2023-04-19] MEDS: HEPARIN SODIUM LOCK FLUSH 500 UNITS/5 ML SYRINGE IV PUSH (14:40)
[2023-04-26 11:23] LABS: Basophils Percent Auto 0.7 % (0.2-1.2); Eosinophils Absolute Auto 0.1 K/mm3 (0-0.3); Eosinophils Percent Auto 3.4 % (0-4.4); Hematocrit 26.8 % (42.0-52.0); Hemoglobin 8.5 g/dL (14.0-18.0); Immature Granulocyte Absolute 0.01 K/mm3 (0.00-0.031); Immature Granulocyte Percent A 0.2 % (0-0.5); Immature Platelet Fraction Pct 3.7 % (0.9-11.2); Lymphocytes Percent Auto 17.1 % (18.3-44.2); Mean Corpuscular HGB Conc 31.7 g/dl (32-36); Mean Corpuscular Volume 91.5 fl (80-100); Mean Platelet Volume 9.9 fl (7.4-10.4); Monocytes Absolute Auto 0.6 K/mm3 (0.1-0.6); Monocytes Percent Auto 13.7 % (2.6-8.5); Neutrophils Absolute Auto 2.7 K/mm3 (1.3-6.7); Neutrophils Percent Auto 64.9 % (45.5-73.1); Platelet Count Result 132 k/mm3 (150-375); Red Blood Count 2.93 M/mm3 (4.6-6.20); Red Cell Distribution Width 18.5 % (11.5-14.5); White Blood Count 4.1 K/mm3 (4.5-10.0)
[2023-04-26 11:23] LABS: Blood Urea Nitrogen 16 mg/dL (8-26); Carbon Dioxide 22 mmol/L (22-30); Chloride 105 mmol/L (98-109); Estimated CRCL calculation 50 ml/min; Estimated Glomerular Filt Rate > 60; Glucose 170 mg/dL (70-105); Potassium 3.7 mmol/L (3.5-4.9); Sodium 141 mmol/L (138-146)
[2023-04-26 12:21] VITALS: BP 150/63; PULSE 61; TEMP 36.3; O2SAT 100
[2023-04-26] MEDS: ONDANSETRON INJ 4 MG/2 ML VIAL 8 MG IV PUSH (12:36)
[2023-04-26] MEDS: PREMIXIV IVPB (13:17)
[2023-04-26] MEDS: PACLITAXEL PROTEIN BOUND IVPB (13:17)
[2023-04-26] MEDS: HEPARIN SODIUM LOCK FLUSH 500 UNITS/5 ML SYRINGE IV PUSH (14:48)
[2023-04-26 17:29] LABS: Alanine Aminotransferase 48 U/L (6-50); Albumin Level 3.2 g/dL (3.5-5.1); Alkaline Phosphatase 217 U/L (38-126); Anion Gap 5 mmol/L (8-16); Aspartate Amino Transferase 31 U/L (17-59); Bilirubin,Total 0.4 mg/dL (0.2-1.3); Blood Urea Nitrogen 17 mg/dL (9-20); Calcium 8.5 mg/dL (8.4-10.2); Carbon Dioxide 24 mmol/L (22-30); Chloride 109 mmol/L (98-107); Estimated CRCL calculation 54 ml/min; Estimated Glomerular Filt Rate > 60; Glucose 162 mg/dL (65-110); Potassium 3.7 mmol/L (3.4-5.0); Sodium 138 mmol/L (137-145)
[2023-05-03 08:54] LABS: Blood Urea Nitrogen 15 mg/dL (8-26); Carbon Dioxide 23 mmol/L (22-30); Chloride 106 mmol/L (98-109); Estimated CRCL calculation 50 ml/min; Estimated Glomerular Filt Rate > 60; Glucose 145 mg/dL (70-105); Ionized Calcium (POC) 1.23 mmol/L (1.11-1.31); Potassium 3.4 mmol/L (3.5-4.9); Sodium 141 mmol/L (138-146)
[2023-05-03 08:55] LABS: Basophils Percent Auto 0.3 % (0.2-1.2); Eosinophils Absolute Auto 0.1 K/mm3 (0-0.3); Eosinophils Percent Auto 3.1 % (0-4.4); Hemoglobin 8.5 g/dL (14.0-18.0); Immature Granulocyte Absolute 0.01 K/mm3 (0.00-0.031); Immature Granulocyte Percent A 0.3 % (0-0.5); Immature Platelet Fraction Pct 4.6 % (0.9-11.2); Lymphocytes Absolute Auto 0.62 K/mm3 (0.9-3.2); Lymphocytes Percent Auto 21.2 % (18.3-44.2); Mean Corpuscular HGB Conc 32.7 g/dl (32-36); Mean Corpuscular Hemoglobin 29.3 pg (26-34); Mean Corpuscular Volume 89.7 fl (80-100); Mean Platelet Volume 10.8 fl (7.4-10.4); Monocytes Absolute Auto 0.4 K/mm3 (0.1-0.6); Neutrophils Absolute Auto 1.8 K/mm3 (1.3-6.7); Neutrophils Percent Auto 62.1 % (45.5-73.1); Platelet Count Result 63 k/mm3 (150-375); Red Cell Distribution Width 18.5 % (11.5-14.5); White Blood Count 2.9 K/mm3 (4.5-10.0)
[2023-05-03 09:19] VITALS: BP 146/74; PULSE 74; O2SAT 100
[2023-05-03] MEDS: HEPARIN SODIUM LOCK FLUSH 500 UNITS/5 ML SYRINGE (09:27)
[2023-05-03 10:34] LABS: Alanine Aminotransferase 39 U/L (6-50); Albumin Level 3.1 g/dL (3.5-5.1); Alkaline Phosphatase 228 U/L (38-126); Anion Gap 8 mmol/L (8-16); Aspartate Amino Transferase 28 U/L (17-59); Bilirubin,Total 0.5 mg/dL (0.2-1.3); Blood Urea Nitrogen 16 mg/dL (9-20); Calcium 8.7 mg/dL (8.4-10.2); Carbon Dioxide 20 mmol/L (22-30); Chloride 109 mmol/L (98-107); Estimated CRCL calculation 54 ml/min; Estimated Glomerular Filt Rate > 60; Glucose 142 mg/dL (65-110); Potassium 3.4 mmol/L (3.4-5.0); Sodium 137 mmol/L (137-145)
[2023-05-10 10:18] LABS: Basophils Percent Auto 0.4 % (0.2-1.2); Eosinophils Absolute Auto 0.1 K/mm3 (0-0.3); Eosinophils Percent Auto 2.7 % (0-4.4); Hematocrit 25.7 % (42.0-52.0); Hemoglobin 8.2 g/dL (14.0-18.0); Immature Granulocyte Absolute 0.02 K/mm3 (0.00-0.031); Immature Granulocyte Percent A 0.4 % (0-0.5); Lymphocytes Absolute Auto 0.48 K/mm3 (0.9-3.2); Lymphocytes Percent Auto 9.3 % (18.3-44.2); Mean Corpuscular HGB Conc 31.9 g/dl (32-36); Mean Corpuscular Hemoglobin 29.2 pg (26-34); Mean Corpuscular Volume 91.5 fl (80-100); Mean Platelet Volume 10.5 fl (7.4-10.4); Monocytes Absolute Auto 0.6 K/mm3 (0.1-0.6); Monocytes Percent Auto 10.9 % (2.6-8.5); Neutrophils Absolute Auto 3.9 K/mm3 (1.3-6.7); Neutrophils Percent Auto 76.3 % (45.5-73.1); Platelet Count Result 172 k/mm3 (150-375); Red Blood Count 2.81 M/mm3 (4.6-6.20); Red Cell Distribution Width 19.9 % (11.5-14.5); White Blood Count 5.2 K/mm3 (4.5-10.0)
[2023-05-10 10:22] LABS: Blood Urea Nitrogen 12 mg/dL (8-26); Carbon Dioxide 20 mmol/L (22-30); Chloride 110 mmol/L (98-109); Estimated CRCL calculation 46 ml/min; Estimated Glomerular Filt Rate 58; Glucose 149 mg/dL (70-105); Ionized Calcium (POC) 1.26 mmol/L (1.11-1.31); Potassium 3.4 mmol/L (3.5-4.9); Sodium 142 mmol/L (138-146)
[2023-05-10 10:27] VITALS: BP 148/65; PULSE 59; TEMP 36.6; O2SAT 100
[2023-05-10] MEDS: ONDANSETRON INJ 4 MG/2 ML VIAL 8 MG IV PUSH (10:58)
[2023-05-10] MEDS: dexAMETHasone SOD 4 MG/ML INJ 12 MG in SODIUM CHLORIDE 0.9% IV 100 ML 206 MG IVPB (11:02)
[2023-05-10] MEDS: EPOETIN ALFA-EPBX 10,000 UNITS/ML VIAL 20000 UNITS SUB-Q (11:06)
[2023-05-10] MEDS: PACLITAXEL PROTEIN BOUND IVPB (11:46)
[2023-05-10] MEDS: PREMIXIV IVPB (11:46)
[2023-05-10 12:02] LABS: Alanine Aminotransferase 21 U/L (6-50); Alkaline Phosphatase 183 U/L (38-126); Anion Gap 9 mmol/L (8-16); Aspartate Amino Transferase 22 U/L (17-59); Bilirubin,Total 0.5 mg/dL (0.2-1.3); Blood Urea Nitrogen 14 mg/dL (9-20); Calcium 8.4 mg/dL (8.4-10.2); Carbon Dioxide 18 mmol/L (22-30); Chloride 113 mmol/L (98-107); Estimated CRCL calculation 50 ml/min; Estimated Glomerular Filt Rate > 60; Glucose 143 mg/dL (65-110); Potassium 3.3 mmol/L (3.4-5.0); Sodium 140 mmol/L (137-145)
[2023-05-10] MEDS: HEPARIN SODIUM LOCK FLUSH 500 UNITS/5 ML SYRINGE IV PUSH (13:18)
[2023-05-10 13:20] VITALS: BP 168/67
[2023-05-17 10:33] LABS: Basophils Percent Auto 0.3 % (0.2-1.2); Eosinophils Percent Auto 0.8 % (0-4.4); Hematocrit 26.9 % (42.0-52.0); Hemoglobin 8.4 g/dL (14.0-18.0); Immature Granulocyte Absolute 0.02 K/mm3 (0.00-0.031); Immature Granulocyte Percent A 0.6 % (0-0.5); Lymphocytes Absolute Auto 0.71 K/mm3 (0.9-3.2); Lymphocytes Percent Auto 19.7 % (18.3-44.2); Mean Corpuscular HGB Conc 31.2 g/dl (32-36); Mean Corpuscular Hemoglobin 28.9 pg (26-34); Mean Corpuscular Volume 92.4 fl (80-100); Monocytes Absolute Auto 0.5 K/mm3 (0.1-0.6); Neutrophils Absolute Auto 2.3 K/mm3 (1.3-6.7); Neutrophils Percent Auto 63.6 % (45.5-73.1); Platelet Count Result 162 k/mm3 (150-375); Red Blood Count 2.91 M/mm3 (4.6-6.20); Red Cell Distribution Width 19.2 % (11.5-14.5); White Blood Count 3.6 K/mm3 (4.5-10.0)
[2023-05-17 10:51] VITALS: BP 162/66; PULSE 65; TEMP 36.5; O2SAT 100
[2023-05-17] MEDS: EPOETIN ALFA-EPBX 10,000 UNITS/ML VIAL 20000 UNITS SUB-Q (11:06)
[2023-05-24 10:51] LABS: Basophils Percent Auto 0.4 % (0.2-1.2); Eosinophils Absolute Auto 0.2 K/mm3 (0-0.3); Eosinophils Percent Auto 2.2 % (0-4.4); Hematocrit 27.7 % (42.0-52.0); Hemoglobin 8.7 g/dL (14.0-18.0); Immature Granulocyte Absolute 0.04 K/mm3 (0.00-0.031); Immature Granulocyte Percent A 0.6 % (0-0.5); Lymphocytes Absolute Auto 0.53 K/mm3 (0.9-3.2); Lymphocytes Percent Auto 7.3 % (18.3-44.2); Mean Corpuscular HGB Conc 31.4 g/dl (32-36); Mean Corpuscular Hemoglobin 29.4 pg (26-34); Mean Corpuscular Volume 93.6 fl (80-100); Mean Platelet Volume 10.2 fl (7.4-10.4); Monocytes Absolute Auto 0.8 K/mm3 (0.1-0.6); Monocytes Percent Auto 10.7 % (2.6-8.5); Neutrophils Absolute Auto 5.7 K/mm3 (1.3-6.7); Neutrophils Percent Auto 78.8 % (45.5-73.1); Platelet Count Result 106 k/mm3 (150-375); Red Blood Count 2.96 M/mm3 (4.6-6.20); Red Cell Distribution Width 20.2 % (11.5-14.5); White Blood Count 7.3 K/mm3 (4.5-10.0)
[2023-05-24 10:55] LABS: Blood Urea Nitrogen 14 mg/dL (8-26); Carbon Dioxide 24 mmol/L (22-30); Chloride 102 mmol/L (98-109); Estimated CRCL calculation 46 ml/min; Estimated Glomerular Filt Rate 58; Glucose 158 mg/dL (70-105); Potassium 3.7 mmol/L (3.5-4.9); Sodium 140 mmol/L (138-146)
[2023-05-24 11:00] VITALS: BP 155/61; PULSE 64; TEMP 36.6; O2SAT 100
[2023-05-24] MEDS: dexAMETHasone SOD 4 MG/ML INJ 12 MG in SODIUM CHLORIDE 0.9% IV 100 ML 206 MG IVPB (11:24)
[2023-05-24] MEDS: ONDANSETRON INJ 4 MG/2 ML VIAL 8 MG IV PUSH (11:24)
[2023-05-24] MEDS: EPOETIN ALFA-EPBX 10,000 UNITS/ML VIAL 20000 UNITS SUB-Q (11:25)
[2023-05-24] MEDS: PREMIXIV IVPB (12:06)
[2023-05-24] MEDS: PACLITAXEL PROTEIN BOUND IVPB (12:06)
[2023-05-24] MEDS: HEPARIN SODIUM LOCK FLUSH 500 UNITS/5 ML SYRINGE IV PUSH (13:22)
[2023-05-24 13:28] VITALS: BP 151/70
[2023-05-24 15:18] LABS: Alanine Aminotransferase 23 U/L (6-50); Albumin Level 3.2 g/dL (3.5-5.1); Alkaline Phosphatase 211 U/L (38-126); Anion Gap 5 mmol/L (8-16); Aspartate Amino Transferase 26 U/L (17-59); Bilirubin,Total 0.5 mg/dL (0.2-1.3); Blood Urea Nitrogen 16 mg/dL (9-20); Calcium 8.5 mg/dL (8.4-10.2); Carbon Dioxide 26 mmol/L (22-30); Chloride 106 mmol/L (98-107); Estimated CRCL calculation 54 ml/min; Estimated Glomerular Filt Rate > 60; Glucose 154 mg/dL (65-110); Potassium 3.7 mmol/L (3.4-5.0); Sodium 137 mmol/L (137-145)
[2023-05-31 08:36] LABS: Basophils Percent Auto 0.3 % (0.2-1.2); Eosinophils Absolute Auto 0.1 K/mm3 (0-0.3); Eosinophils Percent Auto 1.9 % (0-4.4); Hematocrit 25.7 % (42.0-52.0); Immature Granulocyte Absolute 0.01 K/mm3 (0.00-0.031); Immature Granulocyte Percent A 0.3 % (0-0.5); Immature Platelet Fraction Pct 4.1 % (0.9-11.2); Lymphocytes Absolute Auto 0.46 K/mm3 (0.9-3.2); Lymphocytes Percent Auto 12.6 % (18.3-44.2); Mean Corpuscular HGB Conc 31.1 g/dl (32-36); Mean Corpuscular Hemoglobin 29.4 pg (26-34); Mean Corpuscular Volume 94.5 fl (80-100); Mean Platelet Volume 10.5 fl (7.4-10.4); Monocytes Absolute Auto 0.6 K/mm3 (0.1-0.6); Monocytes Percent Auto 17.3 % (2.6-8.5); Neutrophils Absolute Auto 2.5 K/mm3 (1.3-6.7); Neutrophils Percent Auto 67.6 % (45.5-73.1); Platelet Count Result 102 k/mm3 (150-375); Red Blood Count 2.72 M/mm3 (4.6-6.20); Red Cell Distribution Width 19.6 % (11.5-14.5); White Blood Count 3.7 K/mm3 (4.5-10.0)
[2023-05-31 08:38] LABS: Blood Urea Nitrogen 16 mg/dL (8-26); Carbon Dioxide 23 mmol/L (22-30); Chloride 105 mmol/L (98-109); Estimated CRCL calculation 42 ml/min; Estimated Glomerular Filt Rate 53; Glucose 127 mg/dL (70-105); Ionized Calcium (POC) 1.24 mmol/L (1.11-1.31); Potassium 3.4 mmol/L (3.5-4.9); Sodium 142 mmol/L (138-146)
[2023-05-31 08:52] VITALS: BP 149/64; PULSE 60; TEMP 36.6; O2SAT 100
[2023-05-31] MEDS: EPOETIN ALFA-EPBX 10,000 UNITS/ML VIAL 20000 UNITS SUB-Q (09:03)
[2023-05-31 10:19] LABS: Alanine Aminotransferase 44 U/L (6-50); Alkaline Phosphatase 248 U/L (38-126); Anion Gap 4 mmol/L (8-16); Aspartate Amino Transferase 34 U/L (17-59); Bilirubin,Total 0.5 mg/dL (0.2-1.3); Blood Urea Nitrogen 17 mg/dL (9-20); Calcium 8.4 mg/dL (8.4-10.2); Carbon Dioxide 24 mmol/L (22-30); Chloride 110 mmol/L (98-107); Estimated CRCL calculation 46 ml/min; Estimated Glomerular Filt Rate 58; Glucose 131 mg/dL (65-110); Potassium 3.3 mmol/L (3.4-5.0); Sodium 138 mmol/L (137-145)
[2023-06-07 09:49] LABS: Basophils Percent Auto 0.4 % (0.2-1.2); Eosinophils Absolute Auto 0.2 K/mm3 (0-0.3); Eosinophils Percent Auto 2.1 % (0-4.4); Hematocrit 25.9 % (42.0-52.0); Hemoglobin 8.1 g/dL (14.0-18.0); Immature Granulocyte Absolute 0.04 K/mm3 (0.00-0.031); Immature Granulocyte Percent A 0.5 % (0-0.5); Immature Platelet Fraction Pct 4.9 % (0.9-11.2); Lymphocytes Absolute Auto 0.52 K/mm3 (0.9-3.2); Lymphocytes Percent Auto 6.4 % (18.3-44.2); Mean Corpuscular HGB Conc 31.3 g/dl (32-36); Mean Corpuscular Hemoglobin 28.9 pg (26-34); Mean Corpuscular Volume 92.5 fl (80-100); Mean Platelet Volume 10.7 fl (7.4-10.4); Monocytes Absolute Auto 0.9 K/mm3 (0.1-0.6); Monocytes Percent Auto 10.5 % (2.6-8.5); Neutrophils Absolute Auto 6.5 K/mm3 (1.3-6.7); Neutrophils Percent Auto 80.1 % (45.5-73.1); Platelet Count Result 137 k/mm3 (150-375); Red Cell Distribution Width 19.5 % (11.5-14.5); White Blood Count 8.1 K/mm3 (4.5-10.0)
[2023-06-07 09:50] LABS: Blood Urea Nitrogen 20 mg/dL (8-26); Carbon Dioxide 20 mmol/L (22-30); Chloride 109 mmol/L (98-109); Estimated CRCL calculation 39 ml/min; Estimated Glomerular Filt Rate 49; Glucose 104 mg/dL (70-105); Ionized Calcium (POC) 1.23 mmol/L (1.11-1.31); Potassium 3.5 mmol/L (3.5-4.9); Sodium 143 mmol/L (138-146)
[2023-06-07 11:01] VITALS: BP 145/61; PULSE 66; TEMP 36.9; O2SAT 100
[2023-06-07] MEDS: EPOETIN ALFA-EPBX 10,000 UNITS/ML VIAL 20000 UNITS SUB-Q (11:08)
[2023-06-07] MEDS: HEPARIN SODIUM LOCK FLUSH 500 UNITS/5 ML SYRINGE (15:00)
[2023-06-07 17:02] LABS: Alanine Aminotransferase 23 U/L (6-50); Albumin Level 2.9 g/dL (3.5-5.1); Alkaline Phosphatase 255 U/L (38-126); Anion Gap 4 mmol/L (8-16); Aspartate Amino Transferase 26 U/L (17-59); Bilirubin,Total 0.6 mg/dL (0.2-1.3); Blood Urea Nitrogen 21 mg/dL (9-20); Calcium 8.5 mg/dL (8.4-10.2); Carbon Dioxide 21 mmol/L (22-30); Chloride 114 mmol/L (98-107); Estimated CRCL calculation 42 ml/min; Estimated Glomerular Filt Rate 53; Glucose 103 mg/dL (65-110); Potassium 3.5 mmol/L (3.4-5.0); Sodium 139 mmol/L (137-145)
[2023-06-07 17:24] LABS: Iron 12 ug/dL (49-181)
[2023-06-07 17:33] LABS: Percent Iron Saturation 7 % (20-50)
[2023-06-14 09:52] LABS: Soluble Transferrin Receptor 2.59 mg/L (0.76-1.76)
--- NOTE | 2023-07-20 11:55 | PHAR ---
GEMCITABINE DOSE ROUNDED DOWN FROM 1,450 MG TO 1,400 MG (3.5%) to reduce waste due to vial size.
[2023-07-27 09:53] LABS: Basophils Percent Auto 0.2 % (0.2-1.2); Eosinophils Absolute Auto 0.1 K/mm3 (0-0.3); Eosinophils Percent Auto 0.8 % (0-4.4); Hematocrit 30.3 % (42.0-52.0); Hemoglobin 9.4 g/dL (14.0-18.0); Immature Granulocyte Absolute 0.08 K/mm3 (0.00-0.031); Immature Granulocyte Percent A 0.6 % (0-0.5); Lymphocytes Absolute Auto 0.77 K/mm3 (0.9-3.2); Lymphocytes Percent Auto 6.1 % (18.3-44.2); Mean Corpuscular Hemoglobin 29.1 pg (26-34); Mean Corpuscular Volume 93.8 fl (80-100); Monocytes Absolute Auto 1.4 K/mm3 (0.1-0.6); Monocytes Percent Auto 10.9 % (2.6-8.5); Neutrophils Absolute Auto 10.3 K/mm3 (1.3-6.7); Neutrophils Percent Auto 81.4 % (45.5-73.1); Platelet Count Result 132 k/mm3 (150-375); Red Blood Count 3.23 M/mm3 (4.6-6.20); Red Cell Distribution Width 18.5 % (11.5-14.5); White Blood Count 12.6 K/mm3 (4.5-10.0)
[2023-07-27 10:01] LABS: Blood Urea Nitrogen 34 mg/dL (8-26); Carbon Dioxide 23 mmol/L (22-30); Chloride 103 mmol/L (98-109); Estimated CRCL calculation 28 ml/min; Estimated Glomerular Filt Rate 32; Glucose 138 mg/dL (70-105); Ionized Calcium (POC) 1.22 mmol/L (1.11-1.31); Potassium 4.7 mmol/L (3.5-4.9); Sodium 139 mmol/L (138-146)
[2023-07-27 13:14] LABS: Alanine Aminotransferase 37 U/L (6-50); Albumin Level 3.3 g/dL (3.5-5.1); Alkaline Phosphatase 879 U/L (38-126); Anion Gap 7 mmol/L (4-12); Aspartate Amino Transferase 49 U/L (17-59); Bilirubin,Total 1.3 mg/dL (0.2-1.3); Blood Urea Nitrogen 38 mg/dL (9-20); Calcium 8.9 mg/dL (8.4-10.2); Carbon Dioxide 24 mmol/L (22-30); Chloride 105 mmol/L (98-107); Estimated CRCL calculation 29 ml/min; Estimated Glomerular Filt Rate 34; Glucose 138 mg/dL (65-110); Potassium 4.7 mmol/L (3.4-5.0); Sodium 136 mmol/L (137-145)
== END 2023-07-30 08:34 ==
LOC: AMCINF 10:30
PROVIDERS: Visit Provider Internal Medicine Hematology & Oncology
DX: C25.9 Malignant neoplasm of pancreas, unspecified (principal); C78.7 Secondary malignant neoplasm of liver and intrahepatic bile duct; I71.40 Abdominal aortic aneurysm, without rupture, unspecified; I12.9 Hypertensive chronic kidney disease with stage 1 through stage 4 chronic kidney disease, or unspecified chronic kidney disease; N18.30 Chronic kidney disease, stage 3 unspecified; T45.1X5D Adverse effect of antineoplastic and immunosuppressive drugs, subsequent encounter; D64.81 Anemia due to antineoplastic chemotherapy; N40.0 Benign prostatic hyperplasia without lower urinary tract symptoms; E11.22 Type 2 diabetes mellitus with diabetic chronic kidney disease; E78.5 Hyperlipidemia, unspecified
CPT/HCPCS: 36415; 36592; 80047; 80053; 82728; 83540; 83550; 84238; 85025; 85055; 86301; 86850; 86900; 86901; 86923; 96367; 96368; 96372; 96375; 96411; 96413; 96415; 96416; 96417; 99212; G0463; J0461; J0640; J1100; J1200; J2405; J2469; J7040; J7050; J7060; J9190; J9201; J9206; J9263; J9264; Q5106; Q5108